=== PATIENT | female | born 1945 | race Caucasian/White ===

== ENCOUNTER → 2016-05-08 | Outpatient (CLI) | payer MEDICARE, BC ==
--- NOTE | 2016-05-09 09:49 | MM ---
Reason for exam: clinical finding. Last mammogram was performed 1 year ago. History: Patient is postmenopausal. Benign core biopsy of the right breast, January 09, 1998. Benign excisional biopsy of the left breast, 1989. Core biopsy of the left breast. Core biopsy of the right breast. Took estrogen for 6 years. Indicated problem(s): non-bloody discharge in the right breast. Physical Findings: Nurse did not find any significant physical abnormalities on exam. MG 3D Diag Mammo W/Cad JES Bilateral CC and MLO view(s) were taken. Prior study comparison: May 08, 2015, bilateral MG 3d screening mammo w/cad. April 26, 2014, bilateral MG screening mammo w CAD. April 26, 2013, [facility] DIGITAL LEFT BREAST MAMMOGRAM w/CAD. The breast tissue is heterogeneously dense. This may lower the sensitivity of mammography. There is chronic nodularity in the left breast. A superior right breast mass is stable and benign. No significant new findings when compared with previous films. These results were verbally communicated with the patient and result sheet given to the patient on 05/08/16. ASSESSMENT: Incomplete: need additional imaging evaluation, BI-RAD 0 RECOMMENDATION: Ultrasound of the right breast. (for further assessment of dark brown nipple discharge)
--- NOTE | 2016-05-09 09:55 | USB ---
Reason for exam: additional evaluation requested from abnormal screening. History: Patient is postmenopausal. Benign core biopsy of the right breast, January 09, 1998. Benign excisional biopsy of the left breast, 1989. Core biopsy of the left breast. Core biopsy of the right breast. Took estrogen for 6 years. US Breast RT Right breast ultrasound including all four quadrants, the retroareolar region and axilla demonstrates duct ectasia at the nipple, a 0.39 x 0.16 x 0.36cm lesion able node at the axilla tail, a 0.38 x 0.23 x 0.27cm lesion too small to characterize at 3 o'clock, a 0.37 x 0.34 x 0.40cm lesion too small to characterize at 6 o'clock for which a 6 month follow up is recommended, a 1.1 x 0.44 x 1.18cm solid, ovoid lesion at 9 o'clock for which a biopsy is recommended and a 0.37 x 0.43 x 0.38cm irregular, hypoechoic area at 11 o'clock for which a biopsy is recommended. These results were verbally communicated with the patient and result sheet given to the patient on 05/08/16. ASSESSMENT: Suspicious, BI-RAD 4 RECOMMENDATION: Ultrasound core biopsy of the right breast. (9 o'clock and 11 o'clock, 2 sites) [address] Dr. Washington with mammographic findings and has scheduled an appointment for the patient for 05/16/16 at 10:[address] Zapata. PRELIMINARY REPORT CALLED AND FAXED TO DR. ZAPATA ON 05/09/16 AT 300/TP.
== END | disposition home or self-care (01) ==
LOC: RADMAMWWP 13:34
PROVIDERS: ATTEND Family Medicine
DX: N64.52 Nipple discharge (principal); R92.8 Other abnormal and inconclusive findings on diagnostic imaging of breast
CPT/HCPCS: 76641; G0204; G0279

== ENCOUNTER → 2016-07-31 | Outpatient (CLI) | payer MEDICARE, BC ==
--- NOTE | 2016-07-31 14:26 | XR ---
EXAMINATION TYPE: XR Hip Complete LT DATE OF EXAM: 07/31/2016 2:22 PM COMPARISON: NONE HISTORY: Pain TECHNIQUE: 2 views submitted FINDINGS: There is no evidence of erosive change or acute fracture. Mild concentric narrowing of the joint space. Sclerosis involving the iliac bone likely related to [place]. Surgical clip in the pelvis. Question degree of the left sacroiliitis. IMPRESSION: 1. Arthropathy with no evidence of erosive change. Correlate with MRI as warranted. 2. Correlate for left sacroiliitis.
== END ==
LOC: RADXRMAIN 14:04
PROVIDERS: ATTEND Family Medicine
DX: M16.12 Unilateral primary osteoarthritis, left hip (principal)
CPT/HCPCS: 73502

== ENCOUNTER → 2016-08-28 | Outpatient (CLI) | payer MEDICARE, BC ==
[2016-08-28 09:52] LABS: ALT 34 U/L (9-52); AST 24 U/L (14-36); Alkaline Phosphatase 104 U/L (38-126); Anion Gap 12 mmol/L; Blood Urea Nitrogen 15 mg/dL (7-17); Calcium 9.1 mg/dL (8.4-10.2); Carbon Dioxide 23 mmol/L (22-30); Chloride 110 mmol/L (98-107); Cholesterol 146 mg/dL (<200); Glucose 105 mg/dL (74-99); HDL Cholesterol 31 mg/dL (40-60); Non-African American GFR(MDRD) >60 (>60 ml/min/1.73 sqM); Potassium 3.8 mmol/L (3.5-5.1); Sodium 145 mmol/L (137-145); Total Bilirubin 0.7 mg/dL (0.2-1.3); Total Protein 7.4 g/dL (6.3-8.2); Triglycerides 204 mg/dL (<150)
[2016-08-28 16:47] LABS: Urine Creatinine 101.5 mg/dL
== END | disposition home or self-care (01) ==
LOC: LABWHC1 09:09
PROVIDERS: ATTEND Internal Medicine Endocrinology, Diabetes & Metabolism
DX: E11.65 Type 2 diabetes mellitus with hyperglycemia (principal)
CPT/HCPCS: 36415; 80053; 80061; 82043; 82570

== ENCOUNTER → 2016-09-03 | Outpatient (CLI) | payer MEDICARE, BC | END | disposition home or self-care (01) | LOC: CPPFTMAIN 10:17 | PROVIDERS: ATTEND Family Medicine | DX: R06.02 Shortness of breath (principal) | CPT/HCPCS: 94060; 94726; 94729 ==

== ENCOUNTER 2016-10-23 15:36 | Emergency (ER) | payer MEDICARE, BC ==
[2016-10-23 16:03] VITALS: RESP 18
[2016-10-23] MEDS ORDERED: ONDANSETRON 4 MG/2 ML VIAL IVP STA (17:09)
[2016-10-23] MEDS ORDERED: diphenhydrAMINE 50 MG/ML 1 ML VIAL IVP STA (17:09)
[2016-10-23] MEDS ORDERED: SODIUM CHLORIDE 0.9% 1,000 ML IV STA (17:09)
[2016-10-23] MEDS ORDERED: RX INFO: IV CONTRAST WAS GIVEN 1 EACH MISC MISCELLANE PRN (17:09)
[2016-10-23] MEDS ORDERED: FAMOTIDINE 20 MG/2 ML VIAL IV STA (17:09)
--- NOTE | 2016-10-23 17:26 | ED ---
General Adult HPI - General Chief complaint: Recheck/Abnormal Lab/Rx Stated complaint: rule out blood clot in lung-sent by Time Seen by Provider: 10/23/16 16:55 Source: patient, RN notes reviewed Mode of arrival: ambulatory Limitations: no limitations - History of Present Illness Initial comments: Patient 71-year-old female who presents emergency room today with a chief complaint of needing a CT to rule out possible PE. She states she saw her art department head and was advised coming here to the emergency room as she has an iodine ALLERGY. She states that she had an IV done approximately 20-25 years ago and became nauseous and does not feel well. Patient states that she has had symptoms of shortness of breath off-and-on over the last 6 months. She states currently experiencing some discomfort when she chest the breath. Patient does admit that she was recently diagnosed with asthma. He states breathing treatment doesn't seem to help her symptoms. She denies any symptoms at this time. Patient denies any recent fever, chills, chest pain, back pain, abdominal pain, nausea or vomiting, numbness or tingling, dysuria or hematuria, constipation or diarrhea, headaches or visual changes, or any other complaints. - Related Data Home Medications Medication Instructions Recorded Confirmed Escitalopram [Lexapro] 20 mg PO DAILY 09/18/15 10/23/16 Ezetimibe/Simvastatin [Vytorin 1 tab PO DAILY 09/18/15 10/23/16 10-20 mg Tablet] Levothyroxine Sodium [Synthroid] 112 mcg PO DAILY 09/18/15 10/23/16 Moexipril [Univasc] 3.75 mg PO DAILY 09/18/15 10/23/16 metFORMIN HCL 1,000 mg PO BID 09/18/15 10/23/16 Insulin Detemir [Levemir] 48 unit SQ BID 10/23/16 10/23/16 Omeprazole 40 mg PO DAILY 10/23/16 10/23/16 Topiramate [Topamax] 75 mg PO BID 10/23/16 10/23/16 Allergies Allergy/AdvReac Type Severity Reaction Status Date / Time codeine Allergy Anaphylaxis Verified 10/23/16 16:45 Iodinated Contrast- Oral and Allergy Nausea & Verified 10/23/16 16:45 IV Dye Vomiting meperidine HCl [From Demerol] Allergy Anaphylaxis Verified 10/23/16 16:45 Review of Systems ROS Statement: Those systems with pertinent positive or pertinent negative responses have been documented in the HPI. ROS Other: All systems not noted in ROS Statement are negative. 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 pt, peptic ulcers History of Any Multi-Drug Resistant Organisms: None Reported Past Surgical History: Cholecystectomy, Hysterectomy Additional Past Surgical History / Comment(s): 6 eye surgeries including cataracts Past Anesthesia/Blood Transfusion Reactions: No Reported Reaction Past Psychological History: Depression Smoking Status: Never smoker Past Alcohol Use History: None Reported Past Drug Use History: None Reported - Past Family History Mother Additional Family Medical History / Comment(s): brain aneurysm - at age 45 Father Family Medical History: Coronary Artery Disease (CAD) Additional Family Medical History / Comment(s): of "old age" General Exam - General Exam Comments Initial Comments: General: The patient is awake and alert, in no distress, and does not appear acutely ill. Eye: Pupils are equal, round and reactive to light, extra-ocular movements are intact. No nystagmus. There is normal conjunctiva bilaterally. No signs of icterus. Ears, nose, mouth and throat: There are moist mucous membranes and no oral lesions. Neck: The neck is supple, there is no tenderness or JVD. Cardiovascular: There is a regular rate and rhythm. No murmur, rub or gallop is appreciated. Respiratory: Lungs are clear to auscultation, respirations are non-labored, breath sounds are equal. No wheezes, stridor, rales, or rhonchi. Musculoskeletal: Normal ROM, no tenderness. Strength 5/5. Sensation intact. Pulses equal bilaterally 2+. Neurological: A&O x 3. CN II-XII intact, There are no obvious motor or sensory deficits. Coordination appears grossly intact. Speech is normal. Skin: Skin is warm and dry and no rashes or lesions are noted. Psychiatric: Cooperative, appropriate mood & affect, normal judgment. Limitations: no limitations Course Vital Signs 10/23/16 15:58 Temperature 98.6 F Pulse Rate 74 Respiratory 18 Rate Blood Pressure 128/71 O2 Sat by Pulse 100 Oximetry EKG Findings - EKG Comments: EKG Findings:: EKG performed at 1728: Sinus rhythm at 72 bpm. Occasional PAC. IL interval 196. QRS 88. QT/QTc 432/473. No acute ST changes. Medical Decision Making - Medical Decision Making Patient's CT reviewed and does show no evidence of a PE. Mild arthrosclerotic vascular disease. Minimal fibrotic changes at the posterior lung bases. Patient's labs been reviewed unremarkable. Case discussed in detail with attending physician Dr. Sauceda. Patient reexamined at this time shows no signs of distress resting comfortably. At this time patient will be discharged home advised follow-up with family doctor and her art department head. - Lab Data Result diagrams: 10/23/16 17:20 10/23/16 17:20 Lab Results 10/23/16 10/23/16 10/23/16 Range/Units 17:20 17:20 17:20 WBC 9.9 (3.8-10.6) k/uL RBC 4.93 (3.80-5.40) m/uL Hgb 13.8 (11.4-16.0) gm/dL Hct 40.5 (34.0-46.0) % MCV 82.2 (80.0-100.0) fL MCH 28.0 (25.0-35.0) pg MCHC 34.1 (31.0-37.0) g/dL RDW 13.4 (11.5-15.5) % Plt Count 268 (150-450) k/uL Neutrophils % 63 % Lymphocytes % 27 % Monocytes % 4 % Eosinophils % 3 % Basophils % 0 % Neutrophils # 6.3 (1.3-7.7) k/uL Lymphocytes # 2.7 (1.0-4.8) k/uL Monocytes # 0.4 (0-1.0) k/uL Eosinophils # 0.3 (0-0.7) k/uL Basophils # 0.0 (0-0.2) k/uL Sodium 143 (137-145) mmol/L Potassium 3.7 (3.5-5.1) mmol/L Chloride 109 H (98-107) mmol/L Carbon Dioxide 24 (22-30) mmol/L Anion Gap 10 mmol/L BUN 15 (7-17) mg/dL Creatinine 0.85 (0.52-1.04) mg/dL Est GFR (MDRD) Af Amer >60 (>60 ml/min/1.73 sqM) Est GFR (MDRD) Non-Af >60 (>60 ml/min/1.73 sqM) Glucose 100 H (74-99) mg/dL POC Glucose (mg/dL) (75-99) mg/dL POC Glu Back[employer] ID Calcium 9.5 (8.4-10.2) mg/dL Total Bilirubin 0.4 (0.2-1.3) mg/dL AST 23 (14-36) U/L ALT 34 (9-52) U/L Alkaline Phosphatase 99 (38-126) U/L Total Creatine Kinase 26 L (30-135) U/L CK-MB (CK-2) 0.4 (0.0-2.4) ng/mL CK-MB (CK-2) Rel Index 1.5 Troponin I <0.012 (0.000-0.034) ng/mL Total Protein 8.0 (6.3-8.2) g/dL Albumin 4.4 (3.5-5.0) g/dL 10/23/16 Range/Units 17:36 WBC (3.8-10.6) k/uL RBC (3.80-5.40) m/uL Hgb (11.4-16.0) gm/dL Hct (34.0-46.0) % MCV (80.0-100.0) fL MCH (25.0-35.0) pg MCHC (31.0-37.0) g/dL RDW (11.5-15.5) % Plt Count (150-450) k/uL Neutrophils % % Lymphocytes % % Monocytes % % Eosinophils % % Basophils % % Neutrophils # (1.3-7.7) k/uL Lymphocytes # (1.0-4.8) k/uL Monocytes # (0-1.0) k/uL Eosinophils # (0-0.7) k/uL Basophils # (0-0.2) k/uL Sodium (137-145) mmol/L Potassium (3.5-5.1) mmol/L Chloride (98-107) mmol/L Carbon Dioxide (22-30) mmol/L Anion Gap mmol/L BUN (7-17) mg/dL Creatinine (0.52-1.04) mg/dL Est GFR (MDRD) Af Amer (>60 ml/min/1.73 sqM) Est GFR (MDRD) Non-Af (>60 ml/min/1.73 sqM) Glucose (74-99) mg/dL POC Glucose (mg/dL) 97 (75-99) mg/dL POC Glu Back[employer] Associate ID [place] Calcium (8.4-10.2) mg/dL Total Bilirubin (0.2-1.3) mg/dL AST (14-36) U/L ALT (9-52) U/L Alkaline Phosphatase (38-126) U/L Total Creatine Kinase (30-135) U/L CK-MB (CK-2) (0.0-2.4) ng/mL CK-MB (CK-2) Rel Index Troponin I (0.000-0.034) ng/mL Total Protein (6.3-8.2) g/dL Albumin (3.5-5.0) g/dL Disposition Clinical Impression: Dyspnea, unspecified Disposition: HOME SELF-CARE Condition: Good Instructions: Dyspnea (ED) Additional Instructions: Please follow-up the family doctor/art department head over the next 1-2 days. Please return here to emergency room if any symptoms increase or worsen or for any other concerns as discussed. Referrals: Wilbert Washington MD [Primary Care Provider] - 1-2 days Bakari Torrez DO [Doctor of Osteopathic Medicine] - 1-2 days Time of Disposition: 18:26
[2016-10-23 17:38] LABS: Glucose,Whole Blood 97 mg/dL (75-99)
[2016-10-23 17:40] LABS: Basophils % (A) 0 %; CH 27.8; Eosinophils # (A) 0.3 k/uL (0-0.7); Eosinophils % (A) 3 %; HCT 40.5 % (34.0-46.0); HGB 13.8 gm/dL (11.4-16.0); Luc # (Auto) 0.23; Luc % (Auto) 2; Lymphocytes # (A) 2.7 k/uL (1.0-4.8); Lymphocytes % (A) 27 %; MCHC 34.1 g/dL (31.0-37.0); MCV 82.2 fL (80.0-100.0); Mean Platelet Volume 6.3; Monocytes # (A) 0.4 k/uL (0-1.0); Monocytes % (A) 4 %; Neutrophils # (A) 6.3 k/uL (1.3-7.7); Neutrophils % (A) 63 %; RBC 4.93 m/uL (3.80-5.40); RDW 13.4 % (11.5-15.5); WBC 9.9 k/uL (3.8-10.6); WBC (Perox) 9.83
[2016-10-23 17:44] LABS: ALT 34 U/L (9-52); AST 23 U/L (14-36); Alkaline Phosphatase 99 U/L (38-126); Anion Gap 10 mmol/L; Blood Urea Nitrogen 15 mg/dL (7-17); Calcium 9.5 mg/dL (8.4-10.2); Carbon Dioxide 24 mmol/L (22-30); Chloride 109 mmol/L (98-107); Glucose 100 mg/dL (74-99); Non-African American GFR(MDRD) >60 (>60 ml/min/1.73 sqM); Potassium 3.7 mmol/L (3.5-5.1); Sodium 143 mmol/L (137-145); Total Bilirubin 0.4 mg/dL (0.2-1.3)
[2016-10-23 17:50] LABS: Creatine Kinase 26 U/L (30-135)
[2016-10-23 18:03] LABS: Creatine Kinase MB 0.4 ng/mL (0.0-2.4); Troponin I <0.012 ng/mL (0.000-0.034)
--- NOTE | 2016-10-23 18:18 | CT ---
EXAMINATION TYPE: CT angio chest DATE OF EXAM: 10/23/2016 6:11 PM COMPARISON: NONE HISTORY: R/O PE/ CHEST PAIN AND SOB X6 MONTHS. CT DLP: 227.1 mGycm Automated exposure control for dose reduction was used. CONTRAST: CTA scan of the thorax is performed with IV Contrast, patient injected with 60 mL of Omnipaque 350, p ulmonary embolism protocol. There are 3-D post processed images.. FINDINGS: The lungs are clear of consolidation. There is no pleural effusion. There is no evidence of a pulmona ry mass. There is minimal reticular density at the posterior lung bases. There is mild atheromatous change in the thoracic aorta. There is no sign of aneurysm or dissection. I see no filling defects in the pulmonary arteries. There are no hilar masses. There is no mediastinal adenopathy. There is no pericardial effusion. Hear t size is normal. Thoracic spine is intact. IMPRESSION: NO EVIDENCE OF PULMONARY EMBOLISM. MILD ATHEROSCLEROTIC VASCULAR DISEASE. MINIMAL FIBROTIC CHANGES AT THE POSTERIOR LUNG BASES.
[2016-10-23 18:42] VITALS: BP 108/56; PULSE 75; TEMP 98.2
== END 2016-10-23 18:42 | disposition home or self-care (01) ==
LOC: EC 15:36
DX: R06.00 Dyspnea, unspecified (principal); R07.89 Other chest pain; E11.9 Type 2 diabetes mellitus without complications; I10 Essential (primary) hypertension; E07.9 Disorder of thyroid, unspecified; E78.5 Hyperlipidemia, unspecified; I70.90 Unspecified atherosclerosis; K27.9 Peptic ulcer, site unspecified, unspecified as acute or chronic, without hemorrhage or perforation; F32.9 Major depressive disorder, single episode, unspecified; Z79.4 Long term (current) use of insulin; Z79.899 Other long term (current) drug therapy; Z88.5 Allergy status to narcotic agent; Z91.041 Radiographic dye allergy status
CPT/HCPCS: 96375 ×3; 96361 ×2; 96374 ×2; 99285 ×2; 36415; 93005; 80053; 82550; 82553; 84484; 85025; 71275; J1200; Q9967; J2405

== ENCOUNTER → 2016-10-24 | Outpatient (CLI) | payer MEDICARE, BC ==
--- NOTE | 2016-10-24 14:00 | US ---
EXAMINATION TYPE: US kidneys/renal and bladder DATE OF EXAM: 10/24/2016 COMPARISON: CT 2016 CLINICAL HISTORY: 71-year-old female Renal Mass N28.89. Pt states recent CT at outside facility showe d possible renal mass on left side TECHNIQUE: Multiple sonographic images of the kidneys and bladder were obtained. FINDINGS: Right Kidney: 10.8 x 4.8 x 4.9 cm without hydronephrosis. There is a 1.2 cm simple cyst in the upper pole. Left Kidney: 10.3 x 5.0 x 4.8 cm without hydronephrosis. Multiple cortical cysts are present within t he upper to midpole, largest measuring 1.2 cm. No definite suspicious renal mass. Ultrasound has low sensitivity for the detection of small solid le sions. Bladder shows no gross abnormal body. Both ureteral jets are visualized. IMPRESSION: 1. No hydronephrosis. 2. Bilateral renal cortical cysts measuring up to 1.2 cm have a benign appearance. 3. No suspicious renal mass identified on this exam. The patient's outside exam where a possible left renal mass was seen is not available for correlation. The need for additional follow-up should be ma de on a clinical basis.
== END | disposition home or self-care (01) ==
LOC: RADUSWWP 13:28
PROVIDERS: ATTEND Family Medicine
DX: N28.1 Cyst of kidney, acquired (principal)
CPT/HCPCS: 76770

== ENCOUNTER → 2017-03-18 | Outpatient (CLI) | payer MEDICARE, BC ==
[2017-03-18 11:21] LABS: ALT 37 U/L (9-52); AST 24 U/L (14-36); Albumin 4.4 g/dL (3.5-5.0); Alkaline Phosphatase 110 U/L (38-126); Anion Gap 11 mmol/L; Blood Urea Nitrogen 17 mg/dL (7-17); Calcium 9.9 mg/dL (8.4-10.2); Carbon Dioxide 25 mmol/L (22-30); Chloride 105 mmol/L (98-107); Cholesterol 174 mg/dL (<200); Glucose 155 mg/dL (74-99); HDL Cholesterol 34 mg/dL (40-60); LDL Cholesterol,Calculated 82 mg/dL (0-99); Potassium 4.3 mmol/L (3.5-5.1); Sodium 141 mmol/L (137-145); Total Bilirubin 0.5 mg/dL (0.2-1.3); Total Protein 7.6 g/dL (6.3-8.2); Triglycerides 289 mg/dL (<150)
[2017-03-18 11:33] LABS: T4, Free (Free Thyroxine) 1.07 ng/dL (0.78-2.19)
[2017-03-18 16:56] LABS: Hemoglobin A1C 7.6 % (4.0-6.0)
== END | disposition home or self-care (01) ==
LOC: LABWHC1 10:11
PROVIDERS: ATTEND Internal Medicine Endocrinology, Diabetes & Metabolism
DX: E03.9 Hypothyroidism, unspecified (principal); E11.65 Type 2 diabetes mellitus with hyperglycemia
CPT/HCPCS: 36415; 80053; 80061; 82043; 82570; 83036; 84439; 84443

== ENCOUNTER → 2017-08-11 | Outpatient (CLI) | payer MEDICARE, BC ==
--- NOTE | 2017-08-11 16:13 | XR ---
Left shoulder HISTORY: Left shoulder pain 3 views of the left shoulder Bone mineralization is reduced. Alignment and joint spaces are maintained. Left lung apex as visualiz ed is normal. IMPRESSION: No acute abnormality. Shoulder MRI may be of benefit.
== END | disposition home or self-care (01) ==
LOC: RADXRYALE 13:16
PROVIDERS: ATTEND Nurse Practitioner Family
DX: M25.512 Pain in left shoulder (principal)

== ENCOUNTER → 2017-09-08 | Outpatient (CLI) | payer MEDICARE, BC ==
--- NOTE | 2017-09-08 11:07 | MM ---
Reason for exam: additional evaluation requested from prior study. Last mammogram was performed 1 year and 4 months ago. History: Patient is postmenopausal. Benign core biopsy of the right breast, January 09, 1998. Benign excisional biopsy of the left breast, 1989. Core biopsy of the left breast. Core biopsy of the right breast. Took estrogen for 6 years. Physical Findings: Nurse did not find any significant physical abnormalities on exam. MG 3D Diag Mammo W/Cad JES Bilateral CC and MLO view(s) were taken. Prior study comparison: May 08, 2016, bilateral MG 3d diag mammo w/cad JES. May 08, 2015, bilateral MG 3d screening mammo w/cad. The breast tissue is heterogeneously dense. This may lower the sensitivity of mammography. There is chronic nodularity bilaterally. No significant new findings when compared with previous films. These results were verbally communicated with the patient and result sheet given to the patient on 09/08/17. ASSESSMENT: Negative, BI-RAD 1 RECOMMENDATION: Routine screening mammogram of both breasts in 1 year.
== END | disposition home or self-care (01) ==
LOC: RADMAMWWP 10:17
PROVIDERS: ATTEND Family Medicine
DX: R92.8 Other abnormal and inconclusive findings on diagnostic imaging of breast (principal)
CPT/HCPCS: 77066; G0279; 77062

== ENCOUNTER → 2017-10-15 | Outpatient (CLI) | payer MEDICARE, BC ==
[2017-10-15 10:23] LABS: Calcium 9.2 mg/dL (8.4-10.2); Potassium 4.2 mmol/L (3.5-5.1); Total Bilirubin 0.3 mg/dL (0.2-1.3); Total Protein 6.9 g/dL (6.3-8.2)
[2017-10-15 18:04] LABS: Hemoglobin A1C 7.2 % (4.0-6.0)
== END | disposition home or self-care (01) ==
LOC: LABWHC1 08:31
PROVIDERS: ATTEND Internal Medicine Endocrinology, Diabetes & Metabolism
DX: E11.65 Type 2 diabetes mellitus with hyperglycemia (principal)
CPT/HCPCS: 36415; 80053; 80061; 82043; 82570; 83036

== ENCOUNTER → 2018-02-20 | Outpatient (CLI) | payer MEDICARE, BC ==
[2018-02-20 11:39] LABS: Calcium 9.5 mg/dL (8.4-10.2); Potassium 4.5 mmol/L (3.5-5.1); Total Bilirubin 0.4 mg/dL (0.2-1.3); Total Protein 7.2 g/dL (6.3-8.2)
[2018-02-20 19:48] LABS: Hemoglobin A1C 6.7 % (4.0-6.0)
== END | disposition home or self-care (01) ==
LOC: LAB 10:30
PROVIDERS: ATTEND Internal Medicine Endocrinology, Diabetes & Metabolism
DX: E11.65 Type 2 diabetes mellitus with hyperglycemia (principal); E03.9 Hypothyroidism, unspecified
CPT/HCPCS: 80053; 80061; 82043; 82570; 82607; 83036; 84443

== ENCOUNTER → 2018-07-22 | Outpatient (CLI) | payer MEDICARE, BC ==
[2018-07-22 19:10] LABS: Albumin 4.2 g/dL (3.80-4.90); Albumin/Globulin Ratio 1.56 (1.60-3.17); Anion Gap 8.1 mmol/L (4.00-12.00); Calcium 9.2 mg/dL (8.7-10.3); Carbon Dioxide 23.9 mmol/L (21.6-31.8); Globulin 2.7 g/dL (1.6-3.3); LDL Cholesterol,Calculated 72.2 mg/dL (0.0-131.0); Potassium 4.1 mmol/L (3.5-5.5); Total Bilirubin 0.4 mg/dL (0.2-1.2); Total Protein 6.9 g/dL (6.2-8.2); VLDL Calculation 36.8 mg/dL (5.00-40.00)
[2018-07-22 21:36] LABS: Hemoglobin A1C 7.1 % (4.0-6.0)
== END | disposition home or self-care (01) ==
LOC: LABWHC1 11:44
PROVIDERS: ATTEND Internal Medicine Endocrinology, Diabetes & Metabolism
DX: E03.8 Other specified hypothyroidism (principal); E11.65 Type 2 diabetes mellitus with hyperglycemia
CPT/HCPCS: 36415; 80053; 80061; 82043; 82570; 83036; 84443

== ENCOUNTER → 2018-10-05 | Outpatient (CLI) | payer MEDICARE, BC ==
--- NOTE | 2018-10-05 14:08 | BD ---
EXAMINATION TYPE: Axial Bone Density DATE OF EXAM: 10/05/2018 COMPARISON: 2014 CLINICAL HISTORY: Postmenopausal female, N 95.1 Height: 64.25 Weight: 135 FRAX RISK QUESTIONS: Alcohol (3 or more units per day): no Family History (Parent hip fracture): patient does not know about father, mother no Glucocorticoids (More than 3mos): no (Ex: prednisone, prednisolone, methylprednisolone, dexamethasone, and hydrocortisone). History of Fracture in Adulthood: no Secondary Osteoporosis: 1. Type 1 Diabetes: no 2. Hyperthyroidism: unsure 3. Menopause before 45: no 4. Malnutrition: no 5. Chronic liver disease: no Rheumatoid Arthritis: no Current Tobacco Use: no RISK FACTORS HISTORY OF: Family History of Osteoporosis: yes Active: yes Diet low in dairy products/other sources of calcium: no Postmenopausal woman: yes Take estrogen and/or progesterone medications: not now How long: estrogen for about 6 years Lost more than 2 inches in height since high school: no Frequent falls: no Poor Health: no Hyperparathyroidism: no Adrenal Insufficiency: no MEDICATIONS: Prednisone or other steroids: no Thyroid Medications: yes Which medication: Synthroid How Long: about 10 years or more Osteoporosis Medications: no Additional Medications: insulin twice a day Additional History: Parkinson's, diabetic II EXAM MEASUREMENTS: Bone mineral densitometry was performed using the [employer] System. Bone mineral density as measured about the Lumbar spine is: ----- L1-L4(G/cm2): 0.944 T Score Values are as follows: ----- L2: -2.3 ----- L3: -2.2 ----- L4: -1.4 ----- L1-L4: -2.0 Bone mineral density has: Increased 5.7% since study of: 06/22/2014 Bone mineral density about the R hip (g/cm2): 0.710 Bone mineral density about the L hip (g/cm2): 0.758 T Score values are as follows: -----R Neck: -2.4 -----L Neck: -2.0 -----R Total: -2.2 -----L Total: -1.9 Bone mineral density has: Decreased -7.8% since study of: 06/22/3014 IMPRESSION: Osteopenia (T Score between -2.5 and -1). There is slightly increased risk of fracture and the patient may be considered for treatment. Re-Screen 2-5 years. NOTE: T-SCORE=SD OF THE YOUNG ADULT MEAN.
--- NOTE | 2018-10-07 08:18 | MM ---
Reason for exam: screening (asymptomatic). Last mammogram was performed 1 year and 1 month ago. History: Patient is postmenopausal. Benign core biopsy of the right breast, January 09, 1998. Benign excisional biopsy of the left breast, 1989. Core biopsy of the left breast. Core biopsy of the right breast. Took estrogen for 6 years. MG 3D Screening Mammo W/Cad Bilateral CC and MLO view(s) were taken. Prior study comparison: September 08, 2017, bilateral MG 3d diag mammo w/cad JES. May 08, 2016, bilateral MG 3d diag mammo w/cad JES. The breast tissue is heterogeneously dense. This may lower the sensitivity of mammography. No significant new finding when compared with prior studies. ASSESSMENT: Benign, BI-RAD 2 RECOMMENDATION: Routine screening mammogram of both breasts in 1 year.
== END | disposition home or self-care (01) ==
LOC: RADMAMWWP 09:35
PROVIDERS: ATTEND Family Medicine
DX: Z12.31 Encounter for screening mammogram for malignant neoplasm of breast (principal); M85.80 Other specified disorders of bone density and structure, unspecified site; N95.1 Menopausal and female climacteric states
CPT/HCPCS: 77063; 77067; 77080

== ENCOUNTER → 2018-11-18 | Outpatient (CLI) | payer MEDICARE, BC ==
[2018-11-18 18:33] LABS: Hemoglobin A1C 6.8 % (4.0-6.0)
== END | disposition home or self-care (01) ==
LOC: LABWHC1 10:50
PROVIDERS: ATTEND Internal Medicine Endocrinology, Diabetes & Metabolism
DX: E03.8 Other specified hypothyroidism (principal); E11.65 Type 2 diabetes mellitus with hyperglycemia
CPT/HCPCS: 36415; 83036; 84443

== ENCOUNTER 2018-12-18 11:22 | Observation (INO) | payer MEDICARE, BC ==
[2018-12-18] MEDS ORDERED: ASPIRIN 81 MG PO STA (11:36)
[2018-12-18] MEDS ORDERED: NITROGLYCERIN SL TABS 0.4 MG TAB SUBLINGUAL STA ×3 (11:36)
--- NOTE | 2018-12-18 11:50 | ED ---
General Adult HPI - General Chief complaint: Chest Pain Stated complaint: CHEST PAIN Time Seen by Provider: 12/18/18 11:28 Source: patient, RN notes reviewed Mode of arrival: ambulatory Limitations: no limitations - History of Present Illness Initial comments: Patient is a pleasant 73-year-old female presenting to the emergency Department with complaints of chest discomfort. Onset of symptoms was over 2 days ago. Discomfort has been steady. Discomfort feels like pressure discomfort is moderate and rated 6/10. Patient does feel somewhat short of breath. Symptoms do worsen with taking a deep breath. No associated nausea or diaphoresis. Patient has had similar symptoms previously however is unclear why. - Related Data Home Medications Medication Instructions Recorded Confirmed Escitalopram [Lexapro] 20 mg PO DAILY 09/18/15 12/18/18 Ezetimibe/Simvastatin [Vytorin 1 tab PO DAILY 09/18/15 12/18/18 10-20 mg Tablet] metFORMIN HCL 1,000 mg PO BID 09/18/15 12/18/18 Carbidopa-Levodopa 25-100 mg 1 tab PO TID 12/18/18 12/18/18 [Sinemet 25-100] Cholecalciferol [Vitamin D3 (25 1,000 unit PO DAILY 12/18/18 12/18/18 Mcg = 1000 Iu)] Cyanocobalamin (Vitamin B-12) 5,000 mcg PO DAILY 12/18/18 12/18/18 [Vitamin B-12] Insulin Detemir [Levemir Flextouch] 48 units SQ BID 12/18/18 12/18/18 Levothyroxine Sodium [Synthroid] 88 mcg PO DAILY 12/18/18 12/18/18 Topiramate [Topamax] 150 mg PO BID 12/18/18 12/18/18 Vit C/E/Zn/Coppr/Lutein/Zeaxan 1 cap PO BID 12/18/18 12/18/18 [Preservision Areds 2 Softgel] Allergies Allergy/AdvReac Type Severity Reaction Status Date / Time codeine Allergy Anaphylaxis Verified 12/18/18 12:02 Iodinated Contrast Media Allergy Nausea & Verified 12/18/18 12:02 [Iodinated Contrast- Oral Vomiting and IV Dye] meperidine HCl [From Demerol] Allergy Anaphylaxis Verified 12/18/18 12:02 Review of Systems ROS Statement: Those systems with pertinent positive or pertinent negative responses have been documented in the HPI. ROS Other: All systems not noted in ROS Statement are negative. Constitutional: Denies: fever Eyes: Denies: eye pain ENT: Denies: ear pain Respiratory: Reports: as per HPI, dyspnea Cardiovascular: Reports: chest pain Endocrine: Denies: fatigue Gastrointestinal: Denies: abdominal pain Genitourinary: Denies: dysuria Musculoskeletal: Denies: back pain Skin: Denies: rash Neurological: Denies: weakness 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 pt, peptic ulcers History of Any Multi-Drug Resistant Organisms: None Reported Past Surgical History: Cholecystectomy, Hysterectomy Additional Past Surgical History / Comment(s): 6 eye surgeries including cataracts Past Anesthesia/Blood Transfusion Reactions: No Reported Reaction Past Psychological History: Depression Smoking Status: Never smoker Past Alcohol Use History: None Reported Past Drug Use History: None Reported - Past Family History Mother Additional Family Medical History / Comment(s): brain aneurysm - at age 45 Father Family Medical History: Coronary Artery Disease (CAD) Additional Family Medical History / Comment(s): of "old age" General Exam Limitations: no limitations General appearance: alert, in no apparent distress Head exam: Present: normocephalic Eye exam: Present: normal appearance, PERRL ENT exam: Present: normal oropharynx Neck exam: Present: normal inspection Respiratory exam: Present: normal lung sounds bilaterally. Absent: chest wall tenderness Cardiovascular Exam: Present: regular rate, normal rhythm Expanded Peripheral pulses: 2+: Radial (R), Radial (L), Posterior Tibialis (R), Posterior Tibialis (L), Dorsalis Pedis (R), Dorsalis Pedis (L) GI/Abdominal exam: Present: soft. Absent: tenderness Extremities exam: Present: normal inspection. Absent: pedal edema, calf tenderness Neurological exam: Present: alert Psychiatric exam: Present: normal affect, normal mood Skin exam: Present: normal color Course Vital Signs 12/18/18 12/18/18 12/18/18 11:25 12:07 12:12 Temperature 97.9 F Pulse Rate 83 80 81 Respiratory 20 20 20 Rate Blood Pressure 143/76 128/79 127/71 O2 Sat by Pulse 99 98 96 Oximetry 12/18/18 12/18/18 12:18 13:00 Temperature Pulse Rate 87 68 Respiratory 20 18 Rate Blood Pressure 106/71 102/64 O2 Sat by Pulse 99 98 Oximetry EKG Findings - EKG Comments: EKG Findings:: Normal sinus rhythm 70. CT 176. QRS 84. QT 370. QTc 399. Le ft axis. Normal QRS. Nonspecific T waves. Medical Decision Making - Medical Decision Making Patient reevaluated and improved with nitroglycerin. Patient and family updated on results and plan. Case was discussed in detail with Dr. Bird, who will admit for Dr. Washington. - Lab Data Result diagrams: 12/18/18 11:42 12/18/18 11:42 Lab Results 12/18/18 12/18/18 12/18/18 Range/Units 11:42 11:42 11:42 WBC 8.9 (3.8-10.6) k/uL RBC 4.66 (3.80-5.40) m/uL Hgb 13.3 (11.4-16.0) gm/dL Hct 39.6 (34.0-46.0) % MCV 85.0 (80.0-100.0) fL MCH 28.5 (25.0-35.0) pg MCHC 33.5 (31.0-37.0) g/dL RDW 12.9 (11.5-15.5) % Plt Count 267 (150-450) k/uL Neutrophils % 65 % Lymphocytes % 27 % Monocytes % 3 % Eosinophils % 3 % Basophils % 0 % Neutrophils # 5.8 (1.3-7.7) k/uL Lymphocytes # 2.4 (1.0-4.8) k/uL Monocytes # 0.3 (0-1.0) k/uL Eosinophils # 0.2 (0-0.7) k/uL Basophils # 0.0 (0-0.2) k/uL PT 9.4 (9.0-12.0) sec INR 0.8 (<1.2) APTT 22.7 (22.0-30.0) sec D-Dimer 0.66 H (<0.60) mg/L FEU Sodium 141 (137-145) mmol/L Potassium 3.6 (3.5-5.1) mmol/L Chloride 106 (98-107) mmol/L Carbon Dioxide 22 (22-30) mmol/L Anion Gap 13 mmol/L BUN 18 H (7-17) mg/dL Creatinine 0.94 (0.52-1.04) mg/dL Est GFR (CKD-EPI)AfAm 71 (>60 ml/min/1.73 sqM) Est GFR (CKD-EPI)NonAf 61 (>60 ml/min/1.73 sqM) Glucose 182 H (74-99) mg/dL Calcium 9.5 (8.4-10.2) mg/dL Magnesium 1.8 (1.6-2.3) mg/dL Total Bilirubin 0.5 (0.2-1.3) mg/dL AST 15 (14-36) U/L ALT 8 L (9-52) U/L Alkaline Phosphatase 95 (38-126) U/L Troponin I (0.000-0.034) ng/mL NT-Pro-B Natriuret Pep pg/mL Total Protein 7.7 (6.3-8.2) g/dL Albumin 4.2 (3.5-5.0) g/dL 12/18/18 12/18/18 Range/Units 11:42 11:42 WBC (3.8-10.6) k/uL RBC (3.80-5.40) m/uL Hgb (11.4-16.0) gm/dL Hct (34.0-46.0) % MCV (80.0-100.0) fL MCH (25.0-35.0) pg MCHC (31.0-37.0) g/dL RDW (11.5-15.5) % Plt Count (150-450) k/uL Neutrophils % % Lymphocytes % % Monocytes % % Eosinophils % % Basophils % % Neutrophils # (1.3-7.7) k/uL Lymphocytes # (1.0-4.8) k/uL Monocytes # (0-1.0) k/uL Eosinophils # (0-0.7) k/uL Basophils # (0-0.2) k/uL PT (9.0-12.0) sec INR (<1.2) APTT (22.0-30.0) sec D-Dimer (<0.60) mg/L FEU Sodium (137-145) mmol/L Potassium (3.5-5.1) mmol/L Chloride (98-107) mmol/L Carbon Dioxide (22-30) mmol/L Anion Gap mmol/L BUN (7-17) mg/dL Creatinine (0.52-1.04) mg/dL Est GFR (CKD-EPI)AfAm (>60 ml/min/1.73 sqM) Est GFR (CKD-EPI)NonAf (>60 ml/min/1.73 sqM) Glucose (74-99) mg/dL Calcium (8.4-10.2) mg/dL Magnesium (1.6-2.3) mg/dL Total Bilirubin (0.2-1.3) mg/dL AST (14-36) U/L ALT (9-52) U/L Alkaline Phosphatase (38-126) U/L Troponin I <0.012 (0.000-0.034) ng/mL NT-Pro-B Natriuret Pep 54 pg/mL Total Protein (6.3-8.2) g/dL Albumin (3.5-5.0) g/dL - Radiology Data Radiology results: image reviewed (Chest x-ray shows no acute process) Disposition Clinical Impression: Chest pain Disposition: ADMITTED IP TO THIS HOSP Is patient prescribed a controlled substance at d/c from ED?: No Referrals: Wilbert Washington MD [Primary Care Provider] - 1-2 days Decision Time: 13:23
[2018-12-18 11:58] LABS: Basophils % (A) 0 %; Eosinophils # (A) 0.2 k/uL (0-0.7); Eosinophils % (A) 3 %; HCT 39.6 % (34.0-46.0); HGB 13.3 gm/dL (11.4-16.0); Lymphocytes # (A) 2.4 k/uL (1.0-4.8); Lymphocytes % (A) 27 %; MCH 28.5 pg (25.0-35.0); MCHC 33.5 g/dL (31.0-37.0); Mean Platelet Volume 5.5; Monocytes # (A) 0.3 k/uL (0-1.0); Monocytes % (A) 3 %; Neutrophils # (A) 5.8 k/uL (1.3-7.7); Neutrophils % (A) 65 %; Platelet Count 267 k/uL (150-450); RBC 4.66 m/uL (3.80-5.40); RDW 12.9 % (11.5-15.5); WBC 8.9 k/uL (3.8-10.6)
[2018-12-18 12:09] LABS: Albumin 4.2 g/dL (3.5-5.0); Calcium 9.5 mg/dL (8.4-10.2); Magnesium 1.8 mg/dL (1.6-2.3); Potassium 3.6 mmol/L (3.5-5.1); Total Bilirubin 0.5 mg/dL (0.2-1.3); Total Protein 7.7 g/dL (6.3-8.2)
[2018-12-18 12:14] LABS: INR 0.8 (<1.2); Partial Thromboplastin Time 22.7 sec (22.0-30.0); Prothrombin Time 9.4 sec (9.0-12.0)
--- NOTE | 2018-12-18 12:16 | XR ---
EXAMINATION TYPE: XR chest 2V DATE OF EXAM: 12/18/2018 COMPARISON: 09/18/2015 HISTORY: Chest pain TECHNIQUE: Frontal and lateral views of the chest are obtained. FINDINGS: There is no focal air space opacity, pleural effusion, or pneumothorax seen. The cardiac silhouette size is within normal limits. The osseous structures are intact. Cholecystectomy clips a re seen. Minimal degenerative changes of the spine. Mild diffuse osseous demineralization. IMPRESSION: No acute cardiopulmonary process.
[2018-12-18 12:21] LABS: D-Dimer 0.66 mg/L FEU (<0.60)
[2018-12-18] MEDS ORDERED: ACETAMINOPHEN TAB 500 MG TAB PO STA (12:23)
[2018-12-18] MEDS ORDERED: NITROGLYCERIN SL TABS 0.4 MG TAB SUBLINGUAL PRN (13:23)
[2018-12-18 14:18] VITALS: BMI 24.0
[2018-12-18 16:37] LABS: Glucose,Whole Blood 96 mg/dL (75-99)
[2018-12-18] MEDS: ENOXAPARIN 40 MG/0.4 ML SYRINGE SQ SCH (18:01)
[2018-12-18] MEDS: CARBIDOPA-LEVODOPA 25-100 MG 1 EACH TAB PO SCH ×2 (18:01→21:07)
[2018-12-18] MEDS: NITROGLYCERIN OINT 1 INCH/GM PACKET TOPICAL SCH (18:06)
--- NOTE | 2018-12-18 19:23 | P.CRDCN ---
History of Present Illness History of present illness: This is Dr. Qiu dictating a consult on this patient The patient was interviewed and examined by me IMPRESSION / ASSESSMENT: Costochondritis with exquisite tenderness in the left-sided costochondral Junctions as well as corresponding rib junctions in the interscapular region Pleuritic in nature clearly tender to touch However she has an exertional component to her chest discomfort and she has a gas-like sensation with any chest, the Nitropatch may have made it a little better Diabetes type 2 Hypertension Dyslipidemia Parkinson's disease Vasotec was discontinued by Dr. Hobson on account of low blood pressure PLAN: 3 serial cardiac enzymes Switch to baby aspirin Increase atorvastatin to 20 mg by mouth daily Workup for abnormal d-dimer per internal medicine If 3 cardiac enzymes are normal and 2 serial ECGs are normal then stress testing should be considered May be done as an outpatient HPI The last few days the patient has been complaining of chest discomfort. She has exquisite chest discomfort in the front of her chest near the costochondral junctions. A deep breath makes it worse. The area is clearly tender to touch. She has tenderness in the interscapular region of the back to However in addition to this she has a gas-like sensation within the chest and nitroglycerin provided some relief. In addition there is an exertional component to the discomfort No dizziness no palpitations Recently started on Parkinson medications ROS: No fever chills or rigors, no cough, phlegm or expectoration, no nausea, vomiting or diarrhea, no hematuria, dysuria, no musculoskeletal complaints, no strokes or seizures, no skin lesions. EXAMINATION: Afebrile 97.3F pulse rate in the 70s Blood pressure 108/60 mmHg Breath sounds are clear no rhonchi no crackles Heart sounds S1 and S2 are normal no murmurs or gallop or rub Breath sounds are clear no rhonchi Abdomen is soft nontender Extent is warm no edema REVIEW OF LABS, ECG & MEDICAL DATA Labs reviewed hemoglobin 13.3, d-dimer borderline abnormal at 0.66 Normal chronic enzymes 2 Medications reviewed and include metformin, Vytorin Twelve-lead ECG shows sinus rhythm normal TX narrow QRS nonspecific ST T abn ormalities in the precordial leads Past Medical History Past Medical History: Diabetes Mellitus, Eye Disorder, Hyperlipidemia, Musculoskeletal Disorder, Neurologic Disorder, Osteoarthritis (OA), Thyroid Disorder, Vascular Disorder Additional Past Medical History / Comment(s): IDDM type II, neuropathy L hand/L foot toes, parkinson's disease, small brain aneurysm, peptic ulcers, beginning of macular degeneration bilaterally, UTI, hypothyroid, frequent headaches, back pain/arthritis in back, IBS. History of Any Multi-Drug Resistant Organisms: None Reported Past Surgical History: Cholecystectomy, Hysterectomy Additional Past Surgical History / Comment(s): D&C, multiple surgeries for stabismus bilaterally, bilateral cataract removals/lens implants, colonoscopy. Past Anesthesia/Blood Transfusion Reactions: No Reported Reaction Smoking Status: Former smoker - Past Family History Mother Family Medical History: Vascular Disorder Additional Family Medical History / Comment(s): brain aneurysm - at age 45 Father History Unknown: Yes Family Medical History: Coronary Artery Disease (CAD) Additional Family Medical History / Comment(s): Pt was not raised by biological father. Medications and Allergies Home Medications Medication Instructions Recorded Confirmed Type Escitalopram [Lexapro] 20 mg PO DAILY 09/18/15 12/18/18 History Ezetimibe/Simvastatin [Vytorin 1 tab PO DAILY 09/18/15 12/18/18 History 10-20 mg Tablet] metFORMIN HCL 1,000 mg PO BID 09/18/15 12/18/18 History Carbidopa-Levodopa 25-100 mg 1 tab PO TID 12/18/18 12/18/18 History [Sinemet 25-100] Cholecalciferol [Vitamin D3 (25 1,000 unit PO DAILY 12/18/18 12/18/18 History Mcg = 1000 Iu)] Cyanocobalamin (Vitamin B-12) 5,000 mcg PO DAILY 12/18/18 12/18/18 History [Vitamin B-12] Insulin Detemir [Levemir Flextouch] 48 units SQ BID 12/18/18 12/18/18 History Levothyroxine Sodium [Synthroid] 88 mcg PO DAILY 12/18/18 12/18/18 History Topiramate [Topamax] 150 mg PO BID 12/18/18 12/18/18 History Vit C/E/Zn/Coppr/Lutein/Zeaxan 1 cap PO BID 12/18/18 12/18/18 History [Preservision Areds 2 Softgel] Allergies Allergy/AdvReac Type Severity Reaction Status Date / Time codeine Allergy Anaphylaxis Verified 12/18/18 12:02 Iodinated Contrast Media Allergy Nausea & Verified 12/18/18 12:02 [Iodinated Contrast- Oral Vomiting and IV Dye] meperidine HCl [From Demerol] Allergy Anaphylaxis Verified 12/18/18 12:02 Physical Exam Vitals: Vital Signs Temp Pulse Pulse Resp BP BP BP 12/18/18 15:58 77 18 12/18/18 14:56 77 18 12/18/18 14:40 97.3 F L 77 18 115/64 115/64 12/18/18 14:20 98.2 F 78 20 108/60 12/18/18 13:00 68 18 102/64 12/18/18 12:18 87 20 106/71 12/18/18 12:12 81 20 127/71 12/18/18 12:07 80 20 128/79 12/18/18 11:25 97.9 F 83 20 143/76 Pulse Ox 12/18/18 15:58 12/18/18 14:56 12/18/18 14:40 96 12/18/18 14:20 99 12/18/18 13:00 98 12/18/18 12:18 99 12/18/18 12:12 96 12/18/18 12:07 98 12/18/18 11:25 99 Intake and Output 12/18/18 12/18/18 12/18/18 06:59 14:59 22:59 Intake Total 240 Balance 240 Intake: Oral 240 Other: Voiding Method Toilet Toilet Weight 63.503 kg Results 12/18/18 11:42 12/18/18 11:42 Cardiac Enzymes 12/18/18 12/18/18 12/18/18 Range/Units 11:42 11:42 18: AST 15 (14-36) U/L Troponin I <0.012 <0.012 (0.000-0.034) ng/mL Coagulation 12/18/18 Range/Units 11:42 PT 9.4 (9.0-12.0) sec APTT 22.7 (22.0-30.0) sec CBC 12/18/18 Range/Units 11:42 WBC 8.9 (3.8-10.6) k/uL RBC 4.66 (3.80-5.40) m/uL Hgb 13.3 (11.4-16.0) gm/dL Hct 39.6 (34.0-46.0) % Plt Count 267 (150-450) k/uL Comprehensive Metabolic Panel 12/18/18 Range/Units 11:42 Sodium 141 (137-145) mmol/L Potassium 3.6 (3.5-5.1) mmol/L Chloride 106 (98-107) mmol/L Carbon Dioxide 22 (22-30) mmol/L BUN 18 H (7-17) mg/dL Creatinine 0.94 (0.52-1.04) mg/dL Glucose 182 H (74-99) mg/dL Calcium 9.5 (8.4-10.2) mg/dL AST 15 (14-36) U/L ALT 8 L (9-52) U/L Alkaline Phosphatase 95 (38-126) U/L Total Protein 7.7 (6.3-8.2) g/dL Albumin 4.2 (3.5-5.0) g/dL Current Medications Generic Name Dose Route Start Last Admin Trade Name Freq PRN Reason Stop Dose Admin Aspirin 325 mg 12/19/18 09:00 Aspirin PO DAILY [facility] Atorvastatin Calcium 10 mg 12/19/18 09:00 Lipitor PO DAILY [facility] Carbidopa/Levodopa 1 each 12/18/18 17:15 12/18/18 18:01 Sinemet 25-100 PO Not Given TID [facility] Cyanocobalamin 5,000 mcg 12/19/18 09:00 Vitamin B-12 PO DAILY [facility] Ezetimibe 10 mg 12/19/18 09:00 Zetia PO DAILY [facility] Enoxaparin Sodium 40 mg 12/18/18 17:15 12/18/18 18:01 Lovenox SQ Not Given DAILY [facility] Escitalopram Oxalate 20 mg 12/19/18 09:00 Lexapro PO DAILY [facility] Insulin Detemir 48 unit 12/18/18 21:00 Levemir SQ BID@0700,2100 [facility] Levothyroxine Sodium 88 mcg 12/19/18 06:30 Synthroid PO 0630 [facility] Metformin HCl 1,000 mg 12/18/18 21:00 Glucophage PO BID [facility] Multivitamins/Minerals 1 each 12/18/18 21:00 Ivite PO BID [facility] Nitroglycerin 0.4 mg 12/18/18 13:23 Nitrostat SUBLINGUAL Q5M PRN Chest Pain Nitroglycerin 1 inch 12/18/18 18:00 12/18/18 18:06 Nitro-Bid Oint TOPICAL 1 inch Q6HR [facility] Administration Sodium Chloride 10 ml 12/18/18 21:00 Saline Flush IV BID [facility] Topiramate 150 mg 12/18/18 21:00 Topamax PO BID [facility] Intake and Output 12/18/18 12/18/18 12/18/18 06:59 14:59 22:59 Intake Total 240 Balance 240 Intake: Oral 240 Other: Voiding Method Toilet Toilet Weight 63.503 kg Patient Weight 12/19/18 06:59 Weight 63.503 kg 12/18/18 11:42 12/18/18 11:42
[2018-12-18 19:49] LABS: Glucose,Whole Blood 118 mg/dL (75-99)
[2018-12-18] MEDS: VIT A,C & E-LUTEIN-MINERALS 1 EACH TAB PO SCH (21:09)
[2018-12-18] MEDS: TOPIRAMATE 100 MG TAB PO SCH (21:09)
[2018-12-18] MEDS: metFORMIN 500 MG TAB PO SCH (21:10)
[2018-12-18] MEDS: INSULIN DETEMIR (LEVEMIR) 100 UNIT/ML SYR SQ SCH (21:10)
--- NOTE | 2018-12-18 21:19 | P.HPIM ---
History of Present Illness H&P Date: 12/18/18 Chief Complaint: Chest pain History of presenting complaint: This is a 73-year-old patient of Dr. Washington is chronic stable medical conditions include diabetes mellitus type 2, hyperlipidemia, osteoarthritis, hypothyroid, peripheral neuropathy, Parkinson's disease, hypothyroid. Irritable bowel syndrome. Patient occasionally gets chest pressure with exertion. Last 2 days became more prominent. Patient gets prechordal pain sometimes sharp and of this occasion going to the back of the shoulder. Also some shortness of breath. No dizziness no lightheadedness and no perspiration. Worse with activity and better with rest. Admitted unstable angina for cardiac workup. No prior cardiac history in the past. Review of systems: GEN.: Tired EYES: None HEENT: None NECK: None RESPIRATORY: None CARDIOVASCULAR: As above GASTROINTESTINAL: None GENITOURINARY: None MUSCULOSKELETAL: Joint pains LYMPHATICS: None HEMATOLOGICAL: None PSYCHIATRY: None NEUROLOGICAL: Some tremors Social history: . Smoked for 20 years stopped in 1991. No alcohol. Physical examination: VITAL SIGNS: 97.3, 77, 18, 11 5/64, 96% room air GENERAL: BMI 24, sitting up comfortable. EYES: Pupils equal. Conjunctiva normal. HEENT: External appearance of nose and ears normal, oral cavity grossly normal. NECK: JVD not raised; masses not palpable. HEART: First and second heart sounds are normal; no edema. LUNGS: Respiratory rate normal; clear to auscultation. ABDOMEN: Soft, nontender, liver spleen not palpable, no masses palpable. PSYCH: Alert and oriented x3; mood and affect normal. NEUROLOGICAL: Cranial nerves grossly intact; no facial asymmetry, power and sensation grossly intact. LYMPHATICS: No lymph nodes palpable in the axilla and neck INVESTIGATIONS, reviewed in the clinical context: White count [age]-year-old woman 30.3 platelets 267 potassium 3.6 creatinine 0.94 Glucose 96 118 EKG tracing-personally reviewed by me shows normal sinus rhythm nonspecific T-wave changes Chest x-ray film-personally reviewed by me shows pulses to be clear Assessment: -Possible unstable angina with some EKG changes in the patient's cardiac risk factors include diabetes, hyperlipidemia, age. -Diabetes mellitus type 2, chronically on insulin -Hyperlipidemia -Primary osteoarthritis -Hypothyroid -Aortic peripheral neuropathy -Parkinson disease -Irritable bowel syndrome Plan: Home medications resumed. Accu-Cheks will be followed. Cardiology was consulted. Patient will need at least a stress test given that progressive nature of the symptoms. Unlikely will rule out PE given the d-dimer Past Medical History Past Medical History: Diabetes Mellitus, Eye Disorder, Hyperlipidemia, Musculoskeletal Disorder, Neurologic Disorder, Osteoarthritis (OA), Thyroid Disorder, Vascular Disorder Additional Past Medical History / Comment(s): IDDM type II, neuropathy L hand/L foot toes, parkinson's disease, small brain aneurysm, peptic ulcers, beginning of macular degeneration bilaterally, UTI, hypothyroid, frequent headaches, back pain/arthritis in back, IBS. History of Any Multi-Drug Resistant Organisms: None Reported Past Surgical History: Cholecystectomy, Hysterectomy Additional Past Surgical History / Comment(s): D&C, multiple surgeries for stabismus bilaterally, bilateral cataract removals/lens implants, colonoscopy. Past Anesthesia/Blood Transfusion Reactions: No Reported Reaction Smoking Status: Former smoker - Past Family History Mother Family Medical History: Vascular Disorder Additional Family Medical History / Comment(s): brain aneurysm - at age 45 Father History Unknown: Yes Family Medical History: Coronary Artery Disease (CAD) Additional Family Medical History / Comment(s): Pt was not raised by biological father. Medications and Allergies Home Medications Medication Instructions Recorded Confirmed Type Escitalopram [Lexapro] 20 mg PO DAILY 09/18/15 12/18/18 History Ezetimibe/Simvastatin [Vytorin 1 tab PO DAILY 09/18/15 12/18/18 History 10-20 mg Tablet] metFORMIN HCL 1,000 mg PO BID 09/18/15 12/18/18 History Carbidopa-Levodopa 25-100 mg 1 tab PO TID 12/18/18 12/18/18 History [Sinemet 25-100] Cholecalciferol [Vitamin D3 (25 1,000 unit PO DAILY 12/18/18 12/18/18 History Mcg = 1000 Iu)] Cyanocobalamin (Vitamin B-12) 5,000 mcg PO DAILY 12/18/18 12/18/18 History [Vitamin B-12] Insulin Detemir [Levemir Flextouch] 48 units SQ BID 12/18/18 12/18/18 History Levothyroxine Sodium [Synthroid] 88 mcg PO DAILY 12/18/18 12/18/18 History Topiramate [Topamax] 150 mg PO BID 12/18/18 12/18/18 History Vit C/E/Zn/Coppr/Lutein/Zeaxan 1 cap PO BID 12/18/18 12/18/18 History [Preservision Areds 2 Softgel] Allergies Allergy/AdvReac Type Severity Reaction Status Date / Time codeine Allergy Anaphylaxis Verified 12/18/18 12:02 Iodinated Contrast Media Allergy Nausea & Verified 12/18/18 12:02 [Iodinated Contrast- Oral Vomiting and IV Dye] meperidine HCl [From Demerol] Allergy Anaphylaxis Verified 12/18/18 12:02 Physical Exam Vitals: Vital Signs Temp Pulse Pulse Resp BP BP BP 12/18/18 19:43 17 12/18/18 19:36 98.0 F 67 15 118/68 12/18/18 15:58 77 18 12/18/18 14:56 77 18 12/18/18 14:40 97.3 F L 77 18 115/64 115/64 12/18/18 14:20 98.2 F 78 20 108/60 12/18/18 13:00 68 18 102/64 12/18/18 12:18 87 20 106/71 12/18/18 12:12 81 20 127/71 12/18/18 12:07 80 20 128/79 12/18/18 11:25 97.9 F 83 20 143/76 Pulse Ox 12/18/18 19:43 12/18/18 19:36 97 12/18/18 15:58 12/18/18 14:56 12/18/18 14:40 96 12/18/18 14:20 99 12/18/18 13:00 98 12/18/18 12:18 99 12/18/18 12:12 96 12/18/18 12:07 98 12/18/18 11:25 99 Intake and Output 12/18/18 12/18/18 12/18/18 06:59 14:59 22:59 Intake Total 240 Balance 240 Intake: Oral 240 Other: Voiding Method Toilet Toilet Weight 63.503 kg Results CBC & Chem 7: 12/18/18 11:42 12/18/18 11:42 Labs: Abnormal Lab Results - Last 24 Hours (Table) 12/18/18 12/18/18 12/18/18 Range/Units 11:42 11:42 19:47 D-Dimer 0.66 H (<0.60) mg/L FEU BUN 18 H (7-17) mg/dL Glucose 182 H (74-99) mg/dL POC Glucose (mg/dL) 118 H (75-99) mg/dL ALT 8 L (9-52) U/L Thrombosis Risk Factor Assmnt - Choose All That Apply Any of the Below Risk Factors Present?: Yes Other Risk Factors: Yes Each Risk Factor Represents 2 Points: Age 61-74 years Other congenital or acquired thrombophilia - If yes, enter type in comment: No Thrombosis Risk Factor Assessment Total Risk Factor Score: 2 Thrombosis Risk Factor Assessment Level: Low Risk
[2018-12-19] MEDS: NITROGLYCERIN OINT 1 INCH/GM PACKET TOPICAL SCH ×3 (01:23→12:27)
[2018-12-19 03:25] LABS: Cholesterol 178 mg/dL (<200); HDL Cholesterol 34 mg/dL (40-60); LDL Cholesterol,Calculated 97 mg/dL (0-99); Triglycerides 234 mg/dL (<150)
[2018-12-19 04:15] VITALS: TEMP 98
[2018-12-19] MEDS ORDERED: LEVOTHYROXINE 88 MCG TAB PO SCH (06:30)
[2018-12-19 06:37] LABS: Glucose,Whole Blood 76 mg/dL (75-99)
--- NOTE | 2018-12-19 07:21 | P.PN ---
Progress Note - Text Progress Note Date: 12/19/18 This is a pleasant 73-year-old female patient with diabetes, hypertension, dyslipidemia, and Parkinson disease, was admitted to the hospital with atypical chest discomfort and was ruled out for acute coronary event. The patient was seen yesterday by Dr. Qiu who diagnosed the patient with costochondritis. On follow-up with her today, she is asymptomatic. I did tell the patient that she is to have a stress test as an outpatient probably to rule out severe underlying coronary artery disease. The patient would like to be discharged home.
[2018-12-19] MEDS: INSULIN DETEMIR (LEVEMIR) 100 UNIT/ML SYR SQ SCH (08:02)
[2018-12-19] MEDS: metFORMIN 500 MG TAB PO SCH (08:09)
[2018-12-19 08:21] VITALS: RESP 16
[2018-12-19] MEDS: CARBIDOPA-LEVODOPA 25-100 MG 1 EACH TAB PO SCH ×2 (08:35→16:28)
[2018-12-19] MEDS: ENOXAPARIN 40 MG/0.4 ML SYRINGE SQ SCH (08:37)
[2018-12-19] MEDS: TOPIRAMATE 100 MG TAB PO SCH (08:38)
[2018-12-19] MEDS: VIT A,C & E-LUTEIN-MINERALS 1 EACH TAB PO SCH (08:39)
[2018-12-19] MEDS ORDERED: ATORVASTATIN 20 MG TAB PO SCH (09:00)
[2018-12-19] MEDS ORDERED: ATORVASTATIN 10 MG TAB PO SCH (09:00)
[2018-12-19] MEDS ORDERED: EZETIMIBE 10 MG TAB PO SCH (09:00)
[2018-12-19] MEDS ORDERED: SIMVASTATIN PO SCH (09:00)
[2018-12-19] MEDS ORDERED: EZETIMIBE PO SCH (09:00)
[2018-12-19] MEDS ORDERED: ESCITALOPRAM 20 MG TAB PO SCH (09:00)
[2018-12-19] MEDS ORDERED: ASPIRIN 325 MG TAB PO SCH (09:00)
[2018-12-19] MEDS ORDERED: CYANOCOBALAMIN 500 MCG TAB PO SCH (09:00)
[2018-12-19] MEDS ORDERED: ASPIRIN 81 MG PO SCH (09:00)
[2018-12-19 11:32] LABS: Glucose,Whole Blood 101 mg/dL (75-99)
[2018-12-19 12:05] VITALS: BP 112/69; PULSE 69
--- NOTE | 2018-12-19 15:25 | NM ---
EXAMINATION TYPE: NM pul vent and perfuse DATE OF EXAM: 12/19/2018 COMPARISON: NONE HISTORY: Chest pain and difficulty breathing TECHNIQUE: Utilizing inhalation of 66.1 mCi Tc 99m DTPA aerosol and intravenous injection of 4.89 mC i of Tc 99m MAA, ventilation and perfusion images are acquired post injection in multiple projections . FINDINGS: Normal radiotracer distribution is noted in the lungs. There is no evidence of mismatched defects. IMPRESSION: THIS EXAMINATION IS NEGATIVE.
--- NOTE | 2018-12-19 16:13 | P.DS ---
Providers Date of admission: 12/18/18 13:23 Expected date of discharge: 12/19/18 Attending physician: Rashad Bird Consults: 12/18/18 13:23 Consult Physician Urgent Consulting Provider: Calixto Alberto Consult Reason/Comments: cp Do you want consulting provider notified?: Yes Primary care physician: [facility] Course: Ms. Yu is a 73-year-old female with a past medical history of hypertension, hyperlipidemia, type 2 diabetes mellitus, hypothyroidism, peripheral neuropathy, Parkinson's disease, hypothyroidism coming into the hospital with a chief complaint of chest pain. Patient states that the pain is mostly in the front of her chest near the costochondral junctions and it is worse on taking a deep breath. Patient denied having any difficulty in breathing. Patient didn't have any cough. No fever chills or rigors. Patient has been admitted for ACS rule out. She was evaluated by Dr. Hobson and had 3 serial cardiac enzymes and EKGs that were within normal limits. Patient had an elevated d-dimer at 0.66, as the patient has ALLERGIES to iodine, she had a VQ scan that was negative today. The patient was seen by Dr. Newman this morning, who suggested a stress test as outpatient and that the patient is stable to be discharged home. Review of systems: GEN.: Tired EYES: None HEENT: None NECK: None RESPIRATORY: None CARDIOVASCULAR: As above GASTROINTESTINAL: None GENITOURINARY: None MUSCULOSKELETAL: Joint pains LYMPHATICS: None HEMATOLOGICAL: None PSYCHIATRY: None NEUROLOGICAL: Some tremors Vital Signs - 8 hr 12/19/18 12:00 Temperature 98.0 F Pulse Rate [ 69 Pulse Oximetery ] Respiratory 16 Rate Blood Pressure 112/69 [Right Arm] O2 Sat by Pulse 97 Oximetry GENERAL: Alert and awake, in no apparent distress EYES: Pupils equal. Conjunctiva normal. HEENT: External appearance of nose and ears normal, oral cavity grossly normal. NECK: JVD not raised; masses not palpable. HEART: First and second heart sounds are normal; no edema. LUNGS: Respiratory rate normal; clear to auscultation. ABDOMEN: Soft, nontender, liver spleen not palpable, no masses palpable. PSYCH: Alert and oriented x3; mood and affect normal. NEUROLOGICAL: Cranial nerves grossly intact; no facial asymmetry, power and sensation grossly intact. DISCHARGE DIAGNOSIS -Possible unstable angina with some EKG changes in the patient's cardiac risk factors include diabetes, hyperlipidemia, age. -Diabetes mellitus type 2, chronically on insulin -Hyperlipidemia -Primary osteoarthritis -Hypothyroid -Aortic peripheral neuropathy -Parkinson disease -Irritable bowel syndrome PLAN: Patient is currently chest pain-free. She had a VQ scan that was negative for PE. She has been cleared by cardiology to be discharged home. No changes in her medication regimen was made. She is advised to follow-up with cardiology for an outpatient stress test. The treatment plan was discussed in detail with the patient and her at bedside. More than 45 minutes spent for the discharge of the patient. Patient Condition at Discharge: Good Plan - Discharge Summary Discharge Rx Participant: No New Discharge Prescriptions: Continue metFORMIN HCL 1,000 mg PO BID Escitalopram [Lexapro] 20 mg PO DAILY Ezetimibe/Simvastatin [Vytorin 10-20 mg Tablet] 1 tab PO DAILY Cyanocobalamin (Vitamin B-12) [Vitamin B-12] 5,000 mcg PO DAILY Cholecalciferol [Vitamin D3 (25 Mcg = 1000 Iu)] 1,000 unit PO DAILY Vit C/E/Zn/Coppr/Lutein/Zeaxan [Preservision Areds 2 Softgel] 1 cap PO BID Levothyroxine Sodium [Synthroid] 88 mcg PO DAILY Topiramate [Topamax] 150 mg PO BID Insulin Detemir [Levemir Flextouch] 48 units SQ BID Carbidopa-Levodopa 25-100 mg [Sinemet 25-100 mg] 1 tab PO TID Discharge Medication List Escitalopram [Lexapro] 20 mg PO DAILY 09/18/15 [History] Ezetimibe/Simvastatin [Vytorin 10-20 mg Tablet] 1 tab PO DAILY 09/18/15 [History] metFORMIN HCL 1,000 mg PO BID 09/18/15 [History] Carbidopa-Levodopa 25-100 mg [Sinemet 25-100 mg] 1 tab PO TID 12/18/18 [History] Cholecalciferol [Vitamin D3 (25 Mcg = 1000 Iu)] 1,000 unit PO DAILY 12/18/18 [History] Cyanocobalamin (Vitamin B-12) [Vitamin B-12] 5,000 mcg PO DAILY 12/18/18 [History] Insulin Detemir [Levemir Flextouch] 48 units SQ BID 12/18/18 [History] Levothyroxine Sodium [Synthroid] 88 mcg PO DAILY 12/18/18 [History] Topiramate [Topamax] 150 mg PO BID 12/18/18 [History] Vit C/E/Zn/Coppr/Lutein/Zeaxan [Preservision Areds 2 Softgel] 1 cap PO BID 12/18/18 [History] Follow up Appointment(s)/Referral(s): Wilbert Washington MD [Primary Care Provider] - 1-2 days Josue Reaves MD [STAFF PHYSICIAN] - 1 Week Discharge Disposition: HOME SELF-CARE
== END 2018-12-19 16:30 | disposition home or self-care (01) ==
LOC: EC 11:22 → 1SOBS 13:23
PROVIDERS: ADMIT Hospitalist; ATTEND Hospitalist
DX: R07.89 Other chest pain (principal); I10 Essential (primary) hypertension; M94.0 Chondrocostal junction syndrome [Tietze]; R06.02 Shortness of breath; E78.5 Hyperlipidemia, unspecified; E03.9 Hypothyroidism, unspecified; E11.42 Type 2 diabetes mellitus with diabetic polyneuropathy; G20 Parkinson's disease; R79.89 Other specified abnormal findings of blood chemistry; R94.31 Abnormal electrocardiogram [ECG] [EKG]; M19.91 Primary osteoarthritis, unspecified site; K58.9 Irritable bowel syndrome, unspecified; M46.90 Unspecified inflammatory spondylopathy, site unspecified; H35.30 Unspecified macular degeneration; I67.1 Cerebral aneurysm, nonruptured; I95.9 Hypotension, unspecified; F32.9 Major depressive disorder, single episode, unspecified; Z87.891 Personal history of nicotine dependence; Z87.11 Personal history of peptic ulcer disease; Z87.440 Personal history of urinary (tract) infections; Z90.49 Acquired absence of other specified parts of digestive tract; Z79.899 Other long term (current) drug therapy; Z79.4 Long term (current) use of insulin; Z79.890 Hormone replacement therapy; Z90.710 Acquired absence of both cervix and uterus; Z91.048 Other nonmedicinal substance allergy status; Z88.5 Allergy status to narcotic agent; Z82.49 Family history of ischemic heart disease and other diseases of the circulatory system
CPT/HCPCS: 93005 ×2; 99285; 36415; 94760; 85379; 83880; 80061; 80053; 83735; 84484; 85025; 85610; 85730; 71046; 78582; G0378 ×2; A9540; A9567

== ENCOUNTER → 2019-01-08 | Outpatient (CLI) | payer MEDICARE, BC | END | disposition home or self-care (01) | LOC: CPPFTMAIN 08:18 | PROVIDERS: ATTEND Internal Medicine Critical Care Medicine | DX: I99.8 Other disorder of circulatory system (principal); G70.9 Myoneural disorder, unspecified | CPT/HCPCS: 94060; 94726; 94729 ==

== ENCOUNTER → 2019-02-26 | Outpatient (CLI) | payer MEDICARE, BC ==
[2019-02-26 13:14] LABS: HCT 39.2 % (34.0-46.0); HGB 12.9 gm/dL (11.4-16.0); MCH 28.7 pg (25.0-35.0); MCV 87.1 fL (80.0-100.0); Mean Platelet Volume 7.6; Platelet Count 276 k/uL (150-450); RBC 4.51 m/uL (3.80-5.40); RDW 12.9 % (11.5-15.5); WBC 6.8 k/uL (3.8-10.6)
[2019-02-26 13:23] LABS: Potassium 3.8 mmol/L (3.5-5.1)
== END | disposition home or self-care (01) ==
LOC: LABPAT 11:52
PROVIDERS: ATTEND Internal Medicine Interventional Cardiology
DX: Z01.812 Encounter for preprocedural laboratory examination (principal); R07.9 Chest pain, unspecified
CPT/HCPCS: 80051; 82565; 85027

== ENCOUNTER → 2019-03-08 | Day surgery (SDC) | payer MEDICARE, BC ==
[2019-02-26 11:36] VITALS: BMI 24.3
[~2019-03-08] MED LIST: ACETAMINOPHEN TAB 325 MG TAB ONE; ALPRAZolam 0.25 MG TAB PO PRN; ALPRAZolam 0.5 MG TAB PO PRN; ASPIRIN 325 MG TAB PO ONE; ATORVASTATIN 80 MG TAB PO ONE; CARBIDOPA-LEVODOPA 25-100 MG 1 EACH TAB PO SCH; CHOLECALCIFEROL 1,000 UNIT TAB PO SCH; CYANOCOBALAMIN 5000 MCG PO SCH; ESCITALOPRAM 20 MG TAB PO SCH; EZETIMIBE PO SCH; HEPARIN SODIUM 1,000 UN/ML (10ML VL) ONE; INSULIN DETEMIR 48 UNIT SQ SCH; IOPAMIDOL-370 125ML BTL INJ ONE; LEVOTHYROXINE 88 MCG TAB PO SCH; LIDOCAINE 1% INJ 10MG/ML (20 ML MDV) ONE; LIDOCAINE 1% INJ 10MG/ML (20 ML MDV) SQ ONE; NITROGLYCERIN SL TABS 0.4 MG TAB SUBLINGUAL PRN; NON FORMULARY DRUG (Vit C/E/Zn/Coppr/Lutein/Zeaxan [Preservision Areds 2 Softgel] 1 CAP) PO SCH; RX INFO: IV CONTRAST WAS GIVEN 1 EACH MISC MISCELLANE PRN; SIMVASTATIN PO SCH; SODIUM CHLORIDE 0.9% 1,000 ML IV SCH; SODIUM CHLORIDE 0.9% 1,000 ML in EMPTY BAG 1 BAG IV ONE; TOPIRAMATE 100 MG TAB PO SCH; VERAPAMIL 2.5 MG/ML 2 ML AMP ONE; VERAPAMIL SYRINGE (5 MG/10 ML) INTRAARTER ONE; fentaNYL (PF) 50 MCG/ML 2 ML AMP IV ONE; fentaNYL (PF) 50 MCG/ML 2 ML AMP ONE
[2019-03-08 06:33] LABS: Glucose,Whole Blood 270 mg/dL (75-99)
[2019-03-08] MEDS: INSULIN ASPART (NovoLOG) 100 UNIT/ML VIAL SQ SCH ×2 (06:34→09:16)
[2019-03-08 06:35] VITALS: RESP 18; TEMP 98
--- NOTE | 2019-03-08 08:42 | CC ---
CARDIAC CATHETERIZATION REPORT Mrs. Yu is a 74-year-old female with a history of hypertension, diabetes and hyperlipidemia who has been complaining of progressive dyspnea and fatigue, had an abnormal myocardial perfusion imaging. In view of that, recommendation was made regarding cardiac catheterization. The procedure as well as the risks and complications were discussed with the patient who is in full understanding and agreement. PROCEDURE: Patient was brought to chemistry laboratory technician in a fasting semi-sedated state after receiving fentanyl and Benadryl and achieving moderate conscious sedated state. Using Xylocaine anesthesia in the Seldinger technique, a 6-Armenian sheath was introduced in the right radial artery. Selective right and left coronary angiography were performed using 5- Armenian 3.5 bend right and left Finn catheter. Multiple views of the coronary artery including hemiaxial views were obtained. Following that the right Finn catheter was used to cross the aortic valve and left ventricular end-diastolic pressure was calculated. Following that, catheter and sheath were removed. Hemostasis was obtained with deployment of a TR band. There was no immediate complication. Patient was returned to her room in stable condition. Of note, patient received 4000 units of intravenous heparin as well as intra-arterial verapamil. There was no immediate complication. FINDINGS: LEFT MAIN: This is a short size vessel bifurcating in left circumflex and left anterior descending artery. Left main coronary artery has no evidence of high-grade stenosis. LEFT ANTERIOR DESCENDING ARTERY: This is a large-sized vessel reaching to the apex with a wraparound apex segment giving rise to 2 diagonal branches. The left anterior descending artery in the mid segment has a 20% to 30% plaque. The rest of the vessel has no high-grade stenosis, LEFT CIRCUMFLEX: This is a nondominant large vessel giving rise to 2 obtuse marginal branches. The first one is large in caliber. The left circumflex as well as branches have no evidence of obstructive coronary artery disease. RIGHT CORONARY ARTERY: This is a dominant vessel bifurcating distally PDA and posterolateral segment and branches. The mid right coronary artery has a 20% plaque. The rest of the vessel has no high-grade stenosis. LEFT VENTRICULOGRAM: Left ventriculogram is not performed. HEMODYNAMICS: There was no gradient across the aortic valve. The left ventricular end-diastolic pressure was 8 mmHg. CONCLUSION: 1. Mild coronary artery disease involving the left anterior descending artery and the right coronary artery. 2. Normal left ventricular end-diastolic pressure. RECOMMENDATION: In view of finding anatomy, I recommend continue medical therapy with aggressive coronary risk modifications that have been initiated. Those findings and recommendation were discussed with the patient and her family and they are in full understanding and agreement. Duration of procedure is 14 minutes. MMIRMAL / KENYAN: [id number] /
[2019-03-08 08:58] LABS: Glucose,Whole Blood 243 mg/dL (75-99)
[2019-03-08 12:30] VITALS: BP 133/68; PULSE 60
== END | disposition home or self-care (01) ==
LOC: CATHCVL 05:41
PROVIDERS: ATTEND Internal Medicine Interventional Cardiology
DX: I25.10 Atherosclerotic heart disease of native coronary artery without angina pectoris (principal); I10 Essential (primary) hypertension; E78.00 Pure hypercholesterolemia, unspecified; E11.9 Type 2 diabetes mellitus without complications; E78.2 Mixed hyperlipidemia; F17.210 Nicotine dependence, cigarettes, uncomplicated; Z79.4 Long term (current) use of insulin; Z79.890 Hormone replacement therapy; Z79.899 Other long term (current) drug therapy; Z88.5 Allergy status to narcotic agent; Z91.041 Radiographic dye allergy status
CPT/HCPCS: 93458; C1769; C1894; J2001; J3010; J1644; Q9967

== ENCOUNTER → 2019-09-13 | Outpatient (CLI) | payer MEDICARE, BC ==
[2019-09-13 16:08] LABS: African American GFR (CKD) 65.2 (60.0-200.0); Albumin 4.2 g/dL (3.80-4.90); Albumin/Globulin Ratio 1.75 (1.60-3.17); Anion Gap 5.1 mmol/L (4.00-12.00); Carbon Dioxide 25.9 mmol/L (21.6-31.8); Chol/HDL Ratio 4.76; Globulin 2.4 g/dL (1.6-3.3); Non-African American GFR(CKD) 56.2 (60.0-200.0); Total Bilirubin 0.5 mg/dL (0.2-1.2); Total Protein 6.6 g/dL (6.2-8.2)
[2019-09-13 17:37] LABS: Urine Creatinine 106.5 mg/dL
== END | disposition home or self-care (01) ==
LOC: LABWHC1 09:49
PROVIDERS: ATTEND Internal Medicine Endocrinology, Diabetes & Metabolism
DX: E11.65 Type 2 diabetes mellitus with hyperglycemia (principal)
CPT/HCPCS: 36415; 80053; 80061; 82043; 82570; 83036; 84443

== ENCOUNTER → 2019-10-15 | Outpatient (CLI) | payer MEDICARE, BC ==
--- NOTE | 2019-10-18 14:20 | MM ---
Reason for exam: screening (asymptomatic). Last mammogram was performed 1 year ago. History: Patient is postmenopausal. Benign core biopsy of the right breast, January 09, 1998. Benign excisional biopsy of the left breast, 1989. Core biopsy of the left breast. Core biopsy of the right breast. Took estrogen for 6 years. Physical Findings: A clinical breast exam by your physician is recommended on an annual basis and results should be correlated with mammographic findings. MG 3D Screening Mammo W/Cad Bilateral CC and MLO view(s) were taken. Prior study comparison: October 05, 2018, bilateral MG 3d screening mammo w/cad. September 08, 2017, bilateral MG 3d diag mammo w/cad JES. The breast tissue is heterogeneously dense. This may lower the sensitivity of mammography. There are benign appearing round dystrophic calcifications bilaterally. Previous mammotome biopsy in the right breast. There is chronic nodularity bilaterally. There is no discrete abnormality. ASSESSMENT: Benign, BI-RAD 2 RECOMMENDATION: Routine screening mammogram of both breasts in 1 year.
== END | disposition home or self-care (01) ==
LOC: RADMAMWWP 09:09
PROVIDERS: ATTEND Family Medicine
DX: Z12.31 Encounter for screening mammogram for malignant neoplasm of breast (principal)
CPT/HCPCS: 77063; 77067

== ENCOUNTER → 2020-04-17 | Outpatient (CLI) | payer MEDICARE, BC ==
--- NOTE | 2020-04-17 12:31 | XR ---
EXAMINATION TYPE: XR lumbosacral spine min 4V DATE OF EXAM: 04/17/2020 Comparison: 09/15/2014 Clinical History: 75-year-old female M54.5 Findings: No pars interarticularis defect. 5 lumbar type vertebral bodies. Cholecystectomy clips. Facet arthrop athy lower lumbar spine. Vertebral body heights are preserved and alignment is maintained. Atheroscle rotic calcifications throughout the abdominal aorta. IMPRESSION: Facet arthropathy lower lumbar spine. No vertebral compression collapse or malalignment.
== END | disposition home or self-care (01) ==
LOC: RADXRMAIN 09:57
PROVIDERS: ATTEND Nurse Practitioner Family
DX: M47.816 Spondylosis without myelopathy or radiculopathy, lumbar region (principal)
CPT/HCPCS: 72110

== ENCOUNTER → 2020-04-17 | Outpatient (CLI) | payer MEDICARE, BC ==
[2020-04-17 16:13] LABS: ALT <8 U/L (8-44); AST 14 U/L (13-35); African American GFR (CKD) 57.7 (60.0-200.0); Albumin/Globulin Ratio 1.91 (1.60-3.17); Alkaline Phosphatase 96 U/L (41-126); BUN/Creat Ratio 18.18 Ratio (12.00-20.00); Carbon Dioxide 25.7 mmol/L (21.6-31.8); Chloride 110 mmol/L (96-109); Chol/HDL Ratio 4.46; Cholesterol 156 mg/dL (0-200); Globulin 2.3 g/dL (1.6-3.3); Glucose 123 mg/dL (70-110); Non-African American GFR(CKD) 49.8 (60.0-200.0); Sodium 142 mmol/L (135-145); Total Bilirubin 0.3 mg/dL (0.2-1.2); Total Protein 6.7 g/dL (6.2-8.2)
[2020-04-17 16:45] LABS: Hemoglobin A1C 6.2 % (4.0-6.0)
[2020-04-17 18:52] LABS: Urine Creatinine 154.8 mg/dL
== END | disposition home or self-care (01) ==
LOC: LABWHC1 09:04
PROVIDERS: ATTEND Internal Medicine Endocrinology, Diabetes & Metabolism
DX: E11.9 Type 2 diabetes mellitus without complications (principal)
CPT/HCPCS: 36415; 80053; 80061; 82043; 82570; 83036; 84443

== ENCOUNTER 2020-06-01 13:13 | Emergency (ER) | payer MEDICARE, BC ==
--- NOTE | 2020-06-01 13:25 | ED ---
General Adult HPI - General Source: patient, RN notes reviewed Mode of arrival: ambulatory Limitations: no limitations <Sal Emanuel - Last Filed: 06/01/20 13:22> <Ronald Guy - Last Filed: 06/01/20 18:29> - General Stated complaint: COVID+ 05/17 Time Seen by Provider: 06/01/20 13:19 - History of Present Illness Initial comments: This a 75-year-old female presents emergency Department with chief complaint of generalized weakness. Patient states that she tested positive for covid on 05/17/2020. Patient states that she's been losing weight states that she is very tired, fatigued. She has states that she does have some lower back discomfort. Patient states that she's had no recent shortness of breath or chest pain. She states her PCP told her to come in secondary to possible dehydration, generalized weakness. Patient denies any recent fevers or chills. No headache no dizziness no blurred vision. (Sal Emanuel) Dictation was produced using [employer] dictation software. please excuse any g rammatical, word or spelling errors. This patient was cared for during a federal and state declared state of emergency secondary to Covid 19 Chief Complaint: 75-year-old female sent in by primary care physician for dehydration History of Present Illness: 75-year-old female sent in by primary care physician for dehydration. Patient states she was diagnosed with Covid approximately 2 weeks ago she's been symptomatic for 3 weeks. She denies any respiratory symptoms. She states she's been having abdominal cramping, nausea or she's had poor appetite. Patient states that when she was initially diagnosed Covid she never complained of respiratory symptoms as abdominal symptoms and fatigue. She has not had any vomiting or diarrhea. Spelled primary care physician today and was instructed to come to the ER for evaluation of dehydration. The ROS documented in this emergency department record has been reviewed and confirmed by me. Those systems with pertinent positive or negative responses have been documented in the HPI. All other systems are other negative and/or noncontributory. PHYSICAL EXAM: General Impression: Alert and oriented x3, not in acute distress HEENT: Normocephalic atraumatic, extra-ocular movements intact, pupils equal and reactive to light bilaterally, mucous membranes moist. Cardiovascular: Heart regular rate and rhythm Chest: Able to complete full sentences, no retractions, no tachypnea Abdomen: abdomen soft, mild diffuse abdominal palpatory tenderness, non- distended, no organomegaly Musculoskeletal: Pulses present and equal in all extremities, no peripheral edema Motor: no focal deficits noted Neurological: CN II-XII grossly intact, no focal motor or sensory deficits noted Skin: Intact with no visualized rashes Psych: Normal affect and mood ED course: 75-year-old female presents to the emergency department for poor appetite, dehydration. Vital signs upon arrival are within acceptable limits. Laboratory evaluation obtained. Mild leukocytosis at 10.8. Coag panel is unremarkable. Metabolic panel is negative. Cardiac enzymes negative. Urinalysis positive for urinary tract infection. Nitrite positive likely E. coli. Rotavirus is negative. Chest x-ray is nonacute. Rotavirus is negative. 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 She is given 1 g of ceftriaxone. She is well-appearing and tolerating oral. Patient will be discharged with prescription for Keflex. Patient is advised follow-up with her primary care physician. Return parameters discussed. (Ronald Guy) - Related Data Home Medications Medication Instructions Recorded Confirmed Escitalopram [Lexapro] 20 mg PO DAILY 09/18/15 02/26/19 Ezetimibe/Simvastatin [Vytorin 1 tab PO DAILY 09/18/15 02/26/19 10-20 mg Tablet] metFORMIN HCL 1,000 mg PO BID 09/18/15 03/08/19 Carbidopa-Levodopa 25-100 mg 2 tab PO TID 12/18/18 02/26/19 [Sinemet 25-100 mg] Cholecalciferol [Vitamin D3 (25 1,000 unit PO DAILY 12/18/18 03/08/19 Mcg = 1000 Iu)] Cyanocobalamin (Vitamin B-12) 5,000 mcg PO DAILY 12/18/18 03/08/19 [Vitamin B-12] Insulin Detemir [Levemir Flextouch] 48 units SQ BID 12/18/18 03/08/19 Levothyroxine Sodium [Synthroid] 88 mcg PO DAILY 12/18/18 02/26/19 Topiramate [Topamax] 150 mg PO BID 12/18/18 02/26/19 Vit C/E/Zn/Coppr/Lutein/Zeaxan 1 cap PO BID 12/18/18 03/08/19 [Preservision Areds 2 Softgel] Previous Rx's Medication Instructions Recorded Cephalexin [Keflex] 500 mg PO Q6HR 7 Days #28 cap 06/01/20 Allergies Allergy/AdvReac Type Severity Reaction Status Date / Time codeine Allergy Anaphylaxis Verified 06/01/20 13:25 Iodinated Contrast Media Allergy Nausea & Verified 06/01/20 13:25 [Iodinated Contrast- Oral Vomiting and IV Dye] meperidine HCl [From Demerol] Allergy Anaphylaxis Verified 06/01/20 13:25 Review of Systems ROS Other: All systems not noted in ROS Statement are negative. <Sal Emanuel - Last Filed: 06/01/20 13:22> ROS Other: All systems not noted in ROS Statement are negative. <Ronald Guy - Last Filed: 06/01/20 18:29> ROS Statement: Those systems with pertinent positive or pertinent negative responses have been documented in the HPI. Past Medical History Past Medical History: Diabetes Mellitus, Eye Disorder, Hyperlipidemia, Musculoskeletal Disorder, Neurologic Disorder, Osteoarthritis (OA), Thyroid Disorder, Vascular Disorder Additional Past Medical History / Comment(s): IDDM type II, neuropathy L hand/L foot toes, parkinson's disease, small brain aneurysm, peptic ulcers, beginning of macular degeneration bilaterally, hypothyroid, frequent headaches, back pain/arthritis in back, IBS. History of Any Multi-Drug Resistant Organisms: None Reported Past Surgical History: Cholecystectomy, Hysterectomy Additional Past Surgical History / Comment(s): D&C, multiple surgeries for stabismus bilaterally, bilateral cataract removals/lens implants, colonoscopy. Past Anesthesia/Blood Transfusion Reactions: No Reported Reaction Past Psychological History: Depression Additional Psychological History / Comment(s): Pt resides with her spouse. She uses no assistive device. She no longer drives, spouse drives. Past Alcohol Use History: None Reported Additional Past Alcohol Use History / Comment(s): Pt started smoking in 1971 and quit in 1991. Past Drug Use History: None Reported - Past Family History Mother Family Medical History: Vascular Disorder Additional Family Medical History / Comment(s): brain aneurysm - at age 45 Father History Unknown: Yes Family Medical History: Coronary Artery Disease (CAD) Additional Family Medical History / Comment(s): Pt was not raised by biological father. <Sal Emanuel M - Last Filed: 06/01/20 13:22> General Exam General appearance: alert, in no apparent distress Head exam: Present: atraumatic, normocephalic, normal inspection Respiratory exam: Present: normal lung sounds bilaterally. Absent: respiratory distress, wheezes, rales, rhonchi, stridor Cardiovascular Exam: Present: regular rate, normal rhythm, normal heart sounds. Absent: systolic murmur, diastolic murmur, rubs, gallop, clicks <Sal Emanuel M - Last Filed: 06/01/20 13:22> Course Vital Signs 06/01/20 06/01/20 13:21 15:24 Temperature 98.9 F Pulse Rate 95 Respiratory 18 16 Rate Blood Pressure 129/80 O2 Sat by Pulse 97 Oximetry Medical Decision Making - Lab Data Result diagrams: 06/01/20 13:39 06/01/20 13:39 <Ronald Guy - Last Filed: 06/01/20 18:29> - Lab Data Lab Results 06/01/20 06/01/20 06/01/20 Range/Units 13:39 13:39 13:39 WBC 10.8 H (3.8-10.6) k/uL RBC 4.67 (3.80-5.40) m/uL Hgb 13.1 (11.4-16.0) gm/dL Hct 40.2 (34.0-46.0) % MCV 86.1 (80.0-100.0) fL MCH 28.0 (25.0-35.0) pg MCHC 32.6 (31.0-37.0) g/dL RDW 12.9 (11.5-15.5) % Plt Count 401 (150-450) k/uL MPV 6.8 Neutrophils % 75 % Lymphocytes % 18 % Monocytes % 4 % Eosinophils % 1 % Basophils % 0 % Neutrophils # 8.1 H (1.3-7.7) k/uL Lymphocytes # 1.9 (1.0-4.8) k/uL Monocytes # 0.4 (0-1.0) k/uL Eosinophils # 0.1 (0-0.7) k/uL Basophils # 0.0 (0-0.2) k/uL PT 10.1 (9.0-12.0) sec INR 0.9 (<1.2) APTT 22.1 (22.0-30.0) sec Sodium 138 (137-145) mmol/L Potassium 3.7 (3.5-5.1) mmol/L Chloride 104 (98-107) mmol/L Carbon Dioxide 23 (22-30) mmol/L Anion Gap 11 mmol/L BUN 15 (7-17) mg/dL Creatinine 0.94 (0.52-1.04) mg/dL Est GFR (CKD-EPI)AfAm 70 (>60 ml/min/1.73 sqM) Est GFR (CKD-EPI)NonAf 61 (>60 ml/min/1.73 sqM) Glucose 124 H (74-99) mg/dL Plasma Lactic Acid Lm (0.7-2.0) mmol/L Calcium 9.6 (8.4-10.2) mg/dL Magnesium 2.2 (1.6-2.3) mg/dL Total Bilirubin 0.6 (0.2-1.3) mg/dL AST 17 (14-36) U/L ALT <6 (4-34) U/L Alkaline Phosphatase 93 (38-126) U/L Troponin I (0.000-0.034) ng/mL Total Protein 7.6 (6.3-8.2) g/dL Albumin 4.2 (3.5-5.0) g/dL Urine Color Urine Appearance (Clear) Urine pH (5.0-8.0) Ur Specific Dixie (1.001-1.035) Urine Protein (Negative) Urine Glucose (UA) (Negative) Urine Ketones (Negative) Urine Blood (Negative) Urine Nitrite (Negative) Urine Bilirubin (Negative) Urine Urobilinogen (<2.0) mg/dL Ur Leukocyte Esterase (Negative) Urine RBC (0-5) /hpf Urine WBC (0-5) /hpf Ur Squamous Epith Cells (0-4) /hpf Calcium Oxalate Crystal (None) /hpf Urine Bacteria (None) /hpf Urine Mucus (None) /hpf Coronavirus (PCR) (Not Detectd) 06/01/20 06/01/20 06/01/20 Range/Units 13:39 16:27 17:00 WBC (3.8-10.6) k/uL RBC (3.80-5.40) m/uL Hgb (11.4-16.0) gm/dL Hct (34.0-46.0) % MCV (80.0-100.0) fL MCH (25.0-35.0) pg MCHC (31.0-37.0) g/dL RDW (11.5-15.5) % Plt Count (150-450) k/uL MPV Neutrophils % % Lymphocytes % % Monocytes % % Eosinophils % % Basophils % % Neutrophils # (1.3-7.7) k/uL Lymphocytes # (1.0-4.8) k/uL Monocytes # (0-1.0) k/uL Eosinophils # (0-0.7) k/uL Basophils # (0-0.2) k/uL PT (9.0-12.0) sec INR (<1.2) APTT (22.0-30.0) sec Sodium (137-145) mmol/L Potassium (3.5-5.1) mmol/L Chloride (98-107) mmol/L Carbon Dioxide (22-30) mmol/L Anion Gap mmol/L BUN (7-17) mg/dL Creatinine (0.52-1.04) mg/dL Est GFR (CKD-EPI)AfAm (>60 ml/min/1.73 sqM) Est GFR (CKD-EPI)NonAf (>60 ml/min/1.73 sqM) Glucose (74-99) mg/dL Plasma Lactic Acid Lm 1.5 (0.7-2.0) mmol/L Calcium (8.4-10.2) mg/dL Magnesium (1.6-2.3) mg/dL Total Bilirubin (0.2-1.3) mg/dL AST (14-36) U/L ALT (4-34) U/L Alkaline Phosphatase (38-126) U/L Troponin I <0.012 (0.000-0.034) ng/mL Total Protein (6.3-8.2) g/dL Albumin (3.5-5.0) g/dL Urine Color Yellow Urine Appearance Cloudy H (Clear) Urine pH 6.0 (5.0-8.0) Ur Specific Dixie 1.020 (1.001-1.035) Urine Protein Trace H (Negative) Urine Glucose (UA) Negative (Negative) Urine Ketones 2+ H (Negative) Urine Blood Negative (Negative) Urine Nitrite Positive H (Negative) Urine Bilirubin Negative (Negative) Urine Urobilinogen 2.0 (<2.0) mg/dL Ur Leukocyte Esterase Large H (Negative) Urine RBC 9 H (0-5) /hpf Urine WBC 138 H (0-5) /hpf Ur Squamous Epith Cells 5 H (0-4) /hpf Calcium Oxalate Crystal Few H (None) /hpf Urine Bacteria Many H (None) /hpf Urine Mucus Rare H (None) /hpf Coronavirus (PCR) (Not Detectd) 06/01/20 Range/Units 17:07 WBC (3.8-10.6) k/uL RBC (3.80-5.40) m/uL Hgb (11.4-16.0) gm/dL Hct (34.0-46.0) % MCV (80.0-100.0) fL MCH (25.0-35.0) pg MCHC (31.0-37.0) g/dL RDW (11.5-15.5) % Plt Count (150-450) k/uL MPV Neutrophils % % Lymphocytes % % Monocytes % % Eosinophils % % Basophils % % Neutrophils # (1.3-7.7) k/uL Lymphocytes # (1.0-4.8) k/uL Monocytes # (0-1.0) k/uL Eosinophils # (0-0.7) k/uL Basophils # (0-0.2) k/uL PT (9.0-12.0) sec INR (<1.2) APTT (22.0-30.0) sec Sodium (137-145) mmol/L Potassium (3.5-5.1) mmol/L Chloride (98-107) mmol/L Carbon Dioxide (22-30) mmol/L Anion Gap mmol/L BUN (7-17) mg/dL Creatinine (0.52-1.04) mg/dL Est GFR (CKD-EPI)AfAm (>60 ml/min/1.73 sqM) Est GFR (CKD-EPI)NonAf (>60 ml/min/1.73 sqM) Glucose (74-99) mg/dL Plasma Lactic Acid Lm (0.7-2.0) mmol/L Calcium (8.4-10.2) mg/dL Magnesium (1.6-2.3) mg/dL Total Bilirubin (0.2-1.3) mg/dL AST (14-36) U/L ALT (4-34) U/L Alkaline Phosphatase (38-126) U/L Troponin I (0.000-0.034) ng/mL Total Protein (6.3-8.2) g/dL Albumin (3.5-5.0) g/dL Urine Color Urine Appearance (Clear) Urine pH (5.0-8.0) Ur Specific Dixie (1.001-1.035) Urine Protein (Negative) Urine Glucose (UA) (Negative) Urine Ketones (Negative) Urine Blood (Negative) Urine Nitrite (Negative) Urine Bilirubin (Negative) Urine Urobilinogen (<2.0) mg/dL Ur Leukocyte Esterase (Negative) Urine RBC (0-5) /hpf Urine WBC (0-5) /hpf Ur Squamous Epith Cells (0-4) /hpf Calcium Oxalate Crystal (None) /hpf Urine Bacteria (None) /hpf Urine Mucus (None) /hpf Coronavirus (PCR) Not Detected (Not Detectd) Disposition <Sal Emanuel M - Last Filed: 06/01/20 13:22> Is patient prescribed a controlled substance at d/c from ED?: No Time of Disposition: 18:28 <Ronald Guy - Last Filed: 06/01/20 18:29> Clinical Impression: UTI (urinary tract infection) Disposition: HOME SELF-CARE Condition: Fair Instructions (If sedation given, give patient instructions): Urinary Tract Infection in Women (ED) Additional Instructions: Significant medical attention if he develops fever, flank pain or worsening symptoms. There is a chance that your urinary tract infection could become septic. Culture results will be available in 2 days to see if any needed adjustments with your antibiotics. Prescriptions: Cephalexin [Keflex] 500 mg PO Q6HR 7 Days #28 cap Referrals: Wilbert Washington MD [Primary Care Provider] - 1-2 days
[2020-06-01 14:11] LABS: Basophils % (A) 0 %; Eosinophils # (A) 0.1 k/uL (0-0.7); Eosinophils % (A) 1 %; HCT 40.2 % (34.0-46.0); HGB 13.1 gm/dL (11.4-16.0); Lymphocytes # (A) 1.9 k/uL (1.0-4.8); Lymphocytes % (A) 18 %; MCHC 32.6 g/dL (31.0-37.0); MCV 86.1 fL (80.0-100.0); Mean Platelet Volume 6.8; Monocytes # (A) 0.4 k/uL (0-1.0); Monocytes % (A) 4 %; Neutrophils # (A) 8.1 k/uL (1.3-7.7); Neutrophils % (A) 75 %; Platelet Count 401 k/uL (150-450); RBC 4.67 m/uL (3.80-5.40); RDW 12.9 % (11.5-15.5); WBC 10.8 k/uL (3.8-10.6)
[2020-06-01 14:22] LABS: INR 0.9 (<1.2); Partial Thromboplastin Time 22.1 sec (22.0-30.0); Prothrombin Time 10.1 sec (9.0-12.0)
[2020-06-01 14:32] LABS: ALT <6 U/L (4-34); AST 17 U/L (14-36); African American GFR (CKD) 70 (>60 ml/min/1.73 sqM); Albumin 4.2 g/dL (3.5-5.0); Alkaline Phosphatase 93 U/L (38-126); Anion Gap 11 mmol/L; Blood Urea Nitrogen 15 mg/dL (7-17); Calcium 9.6 mg/dL (8.4-10.2); Carbon Dioxide 23 mmol/L (22-30); Chloride 104 mmol/L (98-107); Glucose 124 mg/dL (74-99); Magnesium 2.2 mg/dL (1.6-2.3); Non-African American GFR(CKD) 61 (>60 ml/min/1.73 sqM); Potassium 3.7 mmol/L (3.5-5.1); Sodium 138 mmol/L (137-145); Total Bilirubin 0.6 mg/dL (0.2-1.3); Total Protein 7.6 g/dL (6.3-8.2)
--- NOTE | 2020-06-01 14:37 | XR ---
EXAMINATION TYPE: XR chest 2V DATE OF EXAM: 06/01/2020 COMPARISON: 12/18/2018 HISTORY: Shortness of breath TECHNIQUE: Frontal and lateral views of the chest are obtained. FINDINGS: Scattered senescent parenchymal changes noted. Hyperinflation compatible with COPD. Patchy peripheral infiltrates noted compatible with Covid 19 pneumonia. Heart size is stable. Mediastinal structures are stable and grossly unremarkable. No evidence for hilar prominence. Degenerative changes dorsal spine. IMPRESSION: 1. Patchy peripheral infiltrates noted compatible with Covid 19 pneumonia.
[2020-06-01] MEDS ORDERED: SODIUM CHLORIDE 0.9% 500 ML 500 ML IV STA (16:48)
[2020-06-01 17:01] LABS: Appearance,Urine Cloudy (Clear); Bacteria,Urine Many /hpf; Bilirubin,Urine Negative (Negative); Blood,Urine Negative (Negative); Calcium Oxalate Crystals,Urine Few /hpf; Color,Urine Yellow; Glucose,Urine (UA) Negative (Negative); Ketones,Urine 2+ (Negative); Leukocyte Esterase,Urine Large (Negative); Mucus,Urine Rare /hpf; Nitrite,Urine Positive (Negative); Protein,Urine Trace (Negative); RBC,Urine 9 /hpf (0-5); Squamous Epithelial Cell,Urine 5 /hpf (0-4); WBC,Urine 138 /hpf (0-5)
[2020-06-01] MEDS ORDERED: cefTRIAXone IN SWFI 1,000 MG/10 ML SYRINGE IVP STA (18:13)
[2020-06-01 18:54] VITALS: BP 131/71; PULSE 78; RESP 20; TEMP 98.7
== END 2020-06-01 19:28 | disposition home or self-care (01) ==
LOC: EC 13:13
DX: N39.0 Urinary tract infection, site not specified (principal); E86.0 Dehydration; R53.1 Weakness; R63.0 Anorexia; E78.5 Hyperlipidemia, unspecified; G20 Parkinson's disease; E03.9 Hypothyroidism, unspecified; M19.90 Unspecified osteoarthritis, unspecified site; E11.40 Type 2 diabetes mellitus with diabetic neuropathy, unspecified; Z20.822 Contact with and (suspected) exposure to COVID-19; Z79.4 Long term (current) use of insulin; Z79.890 Hormone replacement therapy; Z87.891 Personal history of nicotine dependence
CPT/HCPCS: 36415; 93005; 80053; 83605; 83735; 84484; 85025; 85610; 85730; 81001; 87086; 87635; 71046; 99284; 96374; 96361; J0696; 87077; 87186

== ENCOUNTER → 2020-09-26 | Outpatient (CLI) | payer MEDICARE, BC ==
[2020-09-26 18:32] LABS: African American GFR (CKD) 73.5 (60.0-200.0); Albumin 4.3 g/dL (3.80-4.90); Albumin/Globulin Ratio 1.54 (1.60-3.17); Anion Gap 3.8 mmol/L (4.00-12.00); BUN/Creat Ratio 31.11 Ratio (12.00-20.00); Calcium 8.9 mg/dL (8.7-10.3); Carbon Dioxide 24.2 mmol/L (21.6-31.8); Chol/HDL Ratio 3.84; Globulin 2.8 g/dL (1.6-3.3); Non-African American GFR(CKD) 63.4 (60.0-200.0); Potassium 4.7 mmol/L (3.5-5.5); Total Bilirubin 0.3 mg/dL (0.3-1.2); Total Protein 7.1 g/dL (6.2-8.2)
[2020-09-26 19:00] LABS: Hemoglobin A1C 6.3 % (4.0-6.0)
[2020-09-26 22:22] LABS: Urine Creatinine 86.3 mg/dL
== END | disposition home or self-care (01) ==
LOC: LABWHC1 08:47
PROVIDERS: ATTEND Internal Medicine Endocrinology, Diabetes & Metabolism
DX: E11.65 Type 2 diabetes mellitus with hyperglycemia (principal)
CPT/HCPCS: 36415; 80053; 80061; 82043; 82570; 83036; 84443

== ENCOUNTER → 2020-12-21 | Outpatient (CLI) | payer MEDICARE, BC ==
--- NOTE | 2020-12-22 12:07 | MM ---
Reason for exam: screening (asymptomatic). Last mammogram was performed 1 year and 2 months ago. History: Patient is postmenopausal. Benign core biopsy of the right breast, January 09, 1998. Benign excisional biopsy of the left breast, 1989. Core biopsy of the left breast. Core biopsy of the right breast. Took estrogen for 6 years. Physical Findings: A clinical breast exam by your physician is recommended on an annual basis and results should be correlated with mammographic findings. MG 3D Screening Mammo W/Cad Bilateral CC and MLO view(s) were taken. Prior study comparison: October 15, 2019, bilateral MG 3d screening mammo w/cad. October 05, 2018, bilateral MG 3d screening mammo w/cad. The breast tissue is heterogeneously dense. This may lower the sensitivity of mammography. No significant changes when compared with prior studies. ASSESSMENT: Benign, BI-RAD 2 RECOMMENDATION: Routine screening mammogram of both breasts in 1 year.
== END | disposition home or self-care (01) ==
LOC: RADMAMWWP 08:32
PROVIDERS: ATTEND Family Medicine
DX: Z12.31 Encounter for screening mammogram for malignant neoplasm of breast (principal); Z78.0 Asymptomatic menopausal state
CPT/HCPCS: 77063; 77067

== ENCOUNTER 2021-05-11 22:00 | Emergency (ER) | payer MEDICARE, BC ==
[2021-05-11] MEDS ORDERED: ONDANSETRON 4 MG/2 ML VIAL IVP STA (22:44)
[2021-05-11] MEDS ORDERED: SODIUM CHLORIDE 0.9% 1,000 ML IV STA (22:44)
[2021-05-11] MEDS ORDERED: MORPHINE SULFATE 4 MG/ML SYRINGE IV STA (22:44)
[2021-05-11] MEDS ORDERED: FAMOTIDINE 20 MG/2 ML VIAL IV STA (22:45)
[2021-05-11] MEDS ORDERED: methylPREDNISolone SOD SUCCI 125 MG/2 ML VIAL IV STA (22:45)
[2021-05-11] MEDS ORDERED: diphenhydrAMINE 50 MG/ML 1 ML VIAL IVP STA (22:45)
--- NOTE | 2021-05-11 22:45 | ED ---
Abdominal Pain HPI - General Chief Complaint: Abdominal Pain Stated Complaint: Abdominal Pain,N/V Time Seen by Provider: 05/11/21 22:43 Source: patient, RN notes reviewed, old records reviewed Mode of arrival: ambulatory Limitations: no limitations - History of Present Illness Initial Comments: this is a 76-year-old female to the emergency department for evaluation of sudden onset left-sided abdominal pain with sudden onset abdominal pain just prior to arrival. Patient was at home tonight working at a computer when this came on hard. Severe pain left-sided. Pain that was sudden onset. Pain in her left back rating to left groin. Also with nausea and vomiting. She has have history of kidney stones versus feels worse. No fevers she has had a colonoscopy in the past which was normal. Abdominal surgery includes hysterectomy and cholecystectomy MD Complaint: abdominal pain, flank pain (left sided) -: hour(s) Location: diffuse, LLQ, L flank Radiation: none Migration to: no migration Severity: moderate, severe Severity scale (1-10): 10 Quality: stabbing, sharp Consistency: constant, intermittent Improves With: nothing Worsens With: nothing Context: other (none) Associated Symptoms: nausea, vomiting - Related Data Home Medications Medication Instructions Recorded Confirmed Escitalopram [Lexapro] 20 mg PO DAILY 09/18/15 05/11/21 Ezetimibe/Simvastatin [Vytorin 1 tab PO DAILY 09/18/15 05/11/21 10-20 mg Tablet] Carbidopa-Levodopa 25-100 mg 3 tab PO TID 12/18/18 05/11/21 [Sinemet 25-100 mg] Insulin Detemir [Levemir Flextouch 30 units SQ BID 12/18/18 05/11/21 Pen] Topiramate [Topamax] 150 mg PO BID 12/18/18 05/11/21 Vit C/E/Zn/Coppr/Lutein/Zeaxan 1 cap PO BID 12/18/18 05/11/21 [Preservision Areds 2 Softgel] Aspirin EC [Ecotrin Low Dose] 81 mg PO DAILY 06/01/20 05/11/21 Levothyroxine Sodium [Synthroid] 75 mcg PO DAILY 06/01/20 05/11/21 Ascorbic Acid [Vitamin C] 500 mg PO DAILY 05/11/21 05/11/21 Cholecalciferol [Vitamin D3 (25 50 mcg PO DAILY 05/11/21 05/11/21 Mcg = 1000 Iu)] Cyanocobalamin (Vitamin B-12) 2,500 mcg PO DAILY 05/11/21 05/11/21 [Vitamin B-12] Zinc 50 mg PO DAILY 05/11/21 05/11/21 Allergies Allergy/AdvReac Type Severity Reaction Status Date / Time codeine Allergy Anaphylaxis Verified 05/11/21 22:13 meperidine HCl [From Demerol] Allergy Anaphylaxis Verified 05/11/21 22:13 Iodinated Contrast Media AdvReac Nausea & Verified 05/11/21 22:13 [Iodinated Contrast- Oral Vomiting and IV Dye] Review of Systems ROS Statement: Those systems with pertinent positive or pertinent negative responses have been documented in the HPI. ROS Other: All systems not noted in ROS Statement are negative. Past Medical History Past Medical History: Diabetes Mellitus, Eye Disorder, Hyperlipidemia, Musculoskeletal Disorder, Neurologic Disorder, Osteoarthritis (OA), Thyroid Disorder, Vascular Disorder Additional Past Medical History / Comment(s): IDDM type II, neuropathy L hand/L foot toes, parkinson's disease, small brain aneurysm, peptic ulcers, beginning of macular degeneration bilaterally, hypothyroid, frequent headaches, back pa in/arthritis in back, IBS. History of Any Multi-Drug Resistant Organisms: None Reported Past Surgical History: Cholecystectomy, Hysterectomy Additional Past Surgical History / Comment(s): D&C, multiple surgeries for stabismus bilaterally, bilateral cataract removals/lens implants, colonoscopy. Past Anesthesia/Blood Transfusion Reactions: No Reported Reaction Past Psychological History: Depression Smoking Status: Never smoker Past Alcohol Use History: None Reported Past Drug Use History: None Reported - Past Family History Mother Family Medical History: Vascular Disorder Additional Family Medical History / Comment(s): brain aneurysm - at age 45 Father History Unknown: Yes Family Medical History: Coronary Artery Disease (CAD) Additional Family Medical History / Comment(s): Pt was not raised by biological father. General Exam Limitations: no limitations General appearance: alert, in no apparent distress, anxious Head exam: Present: atraumatic, normocephalic, normal inspection Eye exam: Present: normal appearance, PERRL, EOMI. Absent: scleral icterus, conjunctival injection, periorbital swelling ENT exam: Present: normal exam, mucous membranes moist Neck exam: Present: normal inspection. Absent: tenderness, meningismus, lymphadenopathy Respiratory exam: Present: normal lung sounds bilaterally. Absent: respiratory distress, wheezes, rales, rhonchi, stridor Cardiovascular Exam: Present: regular rate, normal rhythm, normal heart sounds. Absent: systolic murmur, diastolic murmur, rubs, gallop, clicks GI/Abdominal exam: Present: soft, normal bowel sounds. Absent: distended, tenderness, guarding, rebound, rigid Extremities exam: Present: normal inspection, full ROM, normal capillary refill. Absent: tenderness, pedal edema, joint swelling, calf tenderness Back exam: Present: normal inspection Neurological exam: Present: alert, oriented X3, CN II-XII intact Psychiatric exam: Present: normal affect, normal mood Skin exam: Present: warm, dry, intact, normal color. Absent: rash Course Vital Signs 05/11/21 22:13 Temperature 98.0 F Pulse Rate 59 L Respiratory 20 Rate Blood Pressure 172/76 O2 Sat by Pulse 98 Oximetry - Reevaluation(s) Reevaluation #1: 05/12/21 01:09 medical record is reviewed Reevaluation #2: 05/12/21 01:09 patient has current adequate pain control Reevaluation #3: 05/12/21 01:09 patient is informed of results and questions answered Medical Decision Making - Medical Decision Making 76 female to the emergency department for evaluation of abdominal pain left flank pain. Patient does have left kidney stone. Pain is improved though patient can be discharged home - Lab Data Result diagrams: 05/11/21 23:00 05/11/21 23:00 Lab Results 05/11/21 05/11/21 05/11/21 Range/Units 23:00 23:00 23:00 WBC 14.3 H (3.8-10.6) k/uL RBC 4.44 (3.80-5.40) m/uL Hgb 13.3 (11.4-16.0) gm/dL Hct 40.3 (34.0-46.0) % MCV 90.7 (80.0-100.0) fL MCH 29.9 (25.0-35.0) pg MCHC 33.0 (31.0-37.0) g/dL RDW 13.6 (11.5-15.5) % Plt Count 222 (150-450) k/uL MPV 7.0 Neutrophils % 79 % Lymphocytes % 14 % Monocytes % 3 % Eosinophils % 2 % Basophils % 0 % Neutrophils # 11.3 H (1.3-7.7) k/uL Lymphocytes # 2.0 (1.0-4.8) k/uL Monocytes # 0.5 (0-1.0) k/uL Eosinophils # 0.2 (0-0.7) k/uL Basophils # 0.0 (0-0.2) k/uL PT 10.1 (9.0-12.0) sec INR 0.9 (<1.2) APTT 23.9 (22.0-30.0) sec Sodium 141 (137-145) mmol/L Potassium 3.7 (3.5-5.1) mmol/L Chloride 108 H (98-107) mmol/L Carbon Dioxide 20 L (22-30) mmol/L Anion Gap 13 mmol/L BUN 22 H (7-17) mg/dL Creatinine 1.06 H (0.52-1.04) mg/dL Est GFR (CKD-EPI)AfAm 60 (>60 ml/min/1.73 sqM) Est GFR (CKD-EPI)NonAf 52 (>60 ml/min/1.73 sqM) Glucose 206 H (74-99) mg/dL Plasma Lactic Acid Lm (0.7-2.0) mmol/L Calcium 9.2 (8.4-10.2) mg/dL Total Bilirubin 0.5 (0.2-1.3) mg/dL AST 19 (14-36) U/L ALT 6 (4-34) U/L Alkaline Phosphatase 121 (38-126) U/L Total Protein 7.8 (6.3-8.2) g/dL Albumin 4.4 (3.5-5.0) g/dL Amylase 60 (30-110) U/L Lipase 112 (23-300) U/L 05/11/21 Range/Units 23:00 WBC (3.8-10.6) k/uL RBC (3.80-5.40) m/uL Hgb (11.4-16.0) gm/dL Hct (34.0-46.0) % MCV (80.0-100.0) fL MCH (25.0-35.0) pg MCHC (31.0-37.0) g/dL RDW (11.5-15.5) % Plt Count (150-450) k/uL MPV Neutrophils % % Lymphocytes % % Monocytes % % Eosinophils % % Basophils % % Neutrophils # (1.3-7.7) k/uL Lymphocytes # (1.0-4.8) k/uL Monocytes # (0-1.0) k/uL Eosinophils # (0-0.7) k/uL Basophils # (0-0.2) k/uL PT (9.0-12.0) sec INR (<1.2) APTT (22.0-30.0) sec Sodium (137-145) mmol/L Potassium (3.5-5.1) mmol/L Chloride (98-107) mmol/L Carbon Dioxide (22-30) mmol/L Anion Gap mmol/L BUN (7-17) mg/dL Creatinine (0.52-1.04) mg/dL Est GFR (CKD-EPI)AfAm (>60 ml/min/1.73 sqM) Est GFR (CKD-EPI)NonAf (>60 ml/min/1.73 sqM) Glucose (74-99) mg/dL Plasma Lactic Acid Lm 1.7 (0.7-2.0) mmol/L Calcium (8.4-10.2) mg/dL Total Bilirubin (0.2-1.3) mg/dL AST (14-36) U/L ALT (4-34) U/L Alkaline Phosphatase (38-126) U/L Total Protein (6.3-8.2) g/dL Albumin (3.5-5.0) g/dL Amylase (30-110) U/L Lipase (23-300) U/L - Radiology Data Radiology results: report reviewed (CT abdomen and pelvis shows left-sided kid collette stone), image reviewed Disposition Clinical Impression: Left ureteral stone, Abdominal pain Disposition: HOME SELF-CARE Condition: Good Instructions (If sedation given, give patient instructions): Kidney Stones (ED) Is patient prescribed a controlled substance at d/c from ED?: No Referrals: Wilbert Washington MD [Primary Care Provider] - 1-2 days
[2021-05-11 23:31] LABS: Basophils % (A) 0 %; Eosinophils # (A) 0.2 k/uL (0-0.7); Eosinophils % (A) 2 %; HCT 40.3 % (34.0-46.0); HGB 13.3 gm/dL (11.4-16.0); Lymphocytes % (A) 14 %; MCH 29.9 pg (25.0-35.0); MCV 90.7 fL (80.0-100.0); Monocytes # (A) 0.5 k/uL (0-1.0); Monocytes % (A) 3 %; Neutrophils # (A) 11.3 k/uL (1.3-7.7); Neutrophils % (A) 79 %; Platelet Count 222 k/uL (150-450); RBC 4.44 m/uL (3.80-5.40); RDW 13.6 % (11.5-15.5); WBC 14.3 k/uL (3.8-10.6)
[2021-05-11 23:41] LABS: INR 0.9 (<1.2); Partial Thromboplastin Time 23.9 sec (22.0-30.0); Prothrombin Time 10.1 sec (9.0-12.0)
[2021-05-12] LABS: Albumin 4.4 g/dL (3.5-5.0); Calcium 9.2 mg/dL (8.4-10.2); Potassium 3.7 mmol/L (3.5-5.1); Total Bilirubin 0.5 mg/dL (0.2-1.3); Total Protein 7.8 g/dL (6.3-8.2)
--- NOTE | 2021-05-12 00:52 | CT ---
EXAMINATION TYPE: CT abdomen pelvis w con DATE OF EXAM: 05/12/2021 COMPARISON: 09/18/2015 HISTORY: Abdominal pain CT DLP: mGycm Automated exposure control for dose reduction was used. CONTRAST: The contrast was Isovue 80 mL IV. There is mild subsegmental atelectasis at the lung bases. Heart size is normal. There is no pleural e ffusion. There is no pericardial effusion. There are clips from cholecystectomy. Liver and spleen are intact. The bile ducts are not dilated. Th ere is no pancreatic mass. There is no adrenal mass. Kidneys have normal size. There is left-sided hydronephrosis with obstructi ng 2 mm calculus at the left ureteral pelvic junction. There is 4 mm calculus posterior left kidney. There is a 3 mm calculus lower pole right kidney. There are multiple small bilateral renal cortical c ysts. There is no retroperitoneal adenopathy. Appendix is posterior and appears normal. Bladder diste nds smoothly. There is no inguinal hernia. There are a few sigmoid diverticula. There is no diverticu litis. Delayed images show delayed left-sided pyelogram. There is no mesenteric edema. There is no ascites or free air. There is no bowel obstruction. The lumbar vertebra have normal alignment. There is no compression fracture. Bony pelvis is intact. T he hip joints are intact. There is some subcutaneous density over the anterior abdomen that could be injection sites. IMPRESSION: Obstructing calculus at the left ureteropelvic junction appears new compared to old exam. Mild left-s ided hydronephrosis. Mild left-sided perinephric edema. Bilateral renal calculi. Calculi are new compared to old exam. Normal appendix.
[2021-05-12] MEDS ORDERED: IBUPROFEN 600 MG STARTER PACK 4 TAB BTL PO STA (01:02)
[2021-05-12] MEDS ORDERED: TAMSULOSIN 0.4 MG CAP.ER.24H PO STA (01:02)
[2021-05-12] MEDS ORDERED: ACET/COD 300 MG/30 MG STARTER PACK 6 TAB BTL PO STA (01:02)
[2021-05-12] MEDS ORDERED: MORPHINE SULFATE 4 MG/ML SYRINGE IVP STA (01:02)
[2021-05-12] MEDS ORDERED: ONDANSETRON 4 MG ODT STARTER PACK 2 TAB BTL PO STA (01:02)
[2021-05-12] MEDS ORDERED: KETOROLAC 15 MG/ML 1 ML VIAL IVP STA (01:02)
[2021-05-12] MEDS ORDERED: traMADol 50 MG STARTER PACK 3 TAB BTL PO STA (01:02)
[2021-05-12 05:57] VITALS: BP 142/87; PULSE 78; RESP 18; TEMP 98.9
== END 2021-05-12 01:39 | disposition home or self-care (01) ==
LOC: EC 22:00
DX: N20.1 Calculus of ureter (principal); E11.40 Type 2 diabetes mellitus with diabetic neuropathy, unspecified; E78.5 Hyperlipidemia, unspecified; G20 Parkinson's disease; F32.A Depression, unspecified; M19.90 Unspecified osteoarthritis, unspecified site; Z79.4 Long term (current) use of insulin; Z79.82 Long term (current) use of aspirin; Z79.890 Hormone replacement therapy; Z79.899 Other long term (current) drug therapy
CPT/HCPCS: 80053; 82150; 83605; 83690; 85025; 85610; 85730; 74177; 99284; 96374; 96375 ×5; 96376; 96361 ×2; J2270 ×2; J1200; J2930; J2405; J1885; S0119; Q9967

== ENCOUNTER 2021-07-08 15:17 | Inpatient (IN) | payer MEDICARE, BC ==
[2021-07-08] MEDS ORDERED: SODIUM CHLORIDE 0.9% 1,000 ML IV STA (15:54)
[2021-07-08] MEDS ORDERED: KETOROLAC 15 MG/ML 1 ML VIAL IVP STA (16:17)
[2021-07-08 16:18] LABS: Basophils # (A) 0.1 k/uL (0-0.2); Basophils % (A) 0 %; Eosinophils # (A) 0.1 k/uL (0-0.7); Eosinophils % (A) 0 %; HCT 44.6 % (34.0-46.0); HGB 14.9 gm/dL (11.4-16.0); Lymphocytes # (A) 1.9 k/uL (1.0-4.8); Lymphocytes % (A) 9 %; MCH 29.6 pg (25.0-35.0); MCHC 33.3 g/dL (31.0-37.0); MCV 88.8 fL (80.0-100.0); Monocytes # (A) 0.7 k/uL (0-1.0); Monocytes % (A) 3 %; Neutrophils # (A) 17.9 k/uL (1.3-7.7); Neutrophils % (A) 86 %; Platelet Count 303 k/uL (150-450); RBC 5.03 m/uL (3.80-5.40); RDW 13.3 % (11.5-15.5); WBC 20.8 k/uL (3.8-10.6)
--- NOTE | 2021-07-08 16:20 | ED ---
Abdominal Pain HPI - General Chief Complaint: Abdominal Pain Stated Complaint: Abd pain Time Seen by Provider: 07/08/21 15:53 Source: patient, family, RN notes reviewed Mode of arrival: wheelchair Limitations: no limitations - History of Present Illness Initial Comments: This is a pleasant 76-year-old female with a history of previous renal stones. She presents to department complaining of right flank pain which started yesterday. She also states that she had a fever of 100.9 yesterday. Some shaking chills. Positive urinary frequency. Pain radiates from the right back around the right flank area. No hematuria. Patient denies chest pain or shortness of breath. No headache, no fever or chills, no changes in vision or hearing, no sore throat or difficulty with speech, no neck pain, no chest pain or shortness of breath, no nausea or vomiting, no changes bowel movements, no numbness or tingling, no extremity pain, no skin rashes or lesions. MD Complaint: flank pain - Related Data Home Medications Medication Instructions Recorded Confirmed Escitalopram [Lexapro] 20 mg PO DAILY 09/18/15 07/08/21 Ezetimibe/Simvastatin [Vytorin 1 tab PO DAILY 09/18/15 07/08/21 10-20 mg Tablet] Carbidopa-Levodopa 25-100 mg 3 tab PO TID@0830,1230,1630 12/18/18 07/08/21 [Sinemet 25-100 mg] Insulin Detemir [Levemir Flextouch 30 units SQ BID 12/18/18 07/08/21 Pen] Vit C/E/Zn/Coppr/Lutein/Zeaxan 1 cap PO BID 12/18/18 07/08/21 [Preservision Areds 2 Softgel] Aspirin EC [Ecotrin Low Dose] 81 mg PO DAILY 06/01/20 07/08/21 Levothyroxine Sodium [Synthroid] 75 mcg PO DAILY 06/01/20 07/08/21 Ascorbic Acid [Vitamin C] 500 mg PO DAILY 05/11/21 07/08/21 Cholecalciferol [Vitamin D3 (25 50 mcg PO DAILY 05/11/21 07/08/21 Mcg = 1000 Iu)] Cyanocobalamin (Vitamin B-12) 2,500 mcg PO DAILY 05/11/21 07/08/21 [Vitamin B-12] Zinc 50 mg PO DAILY 05/11/21 07/08/21 Topiramate [Topamax] 200 mg PO BID 07/08/21 07/08/21 Allergies Allergy/AdvReac Type Severity Reaction Status Date / Time codeine Allergy Anaphylaxis Verified 07/08/21 18:36 meperidine HCl [From Demerol] Allergy Anaphylaxis Verified 07/08/21 18:36 Iodinated Contrast Media AdvReac Nausea & Verified 07/08/21 18:36 [Iodinated Contrast- Oral Vomiting and IV Dye] Review of Systems ROS Statement: Those systems with pertinent positive or pertinent negative responses have been documented in the HPI. ROS Other: All systems not noted in ROS Statement are negative. Past Medical History Past Medical History: Diabetes Mellitus, Eye Disorder, Hyperlipidemia, Musculoskeletal Disorder, Neurologic Disorder, Osteoarthritis (OA), Thyroid Disorder, Vascular Disorder Additional Past Medical History / Comment(s): IDDM type II, neuropathy L hand/L foot toes, parkinson's disease, small brain aneurysm, peptic ulcers, beginning of macular degeneration bilaterally, hypothyroid, frequent headaches, back pain/arthritis in back, IBS. History of Any Multi-Drug Resistant Organisms: None Reported Past Surgical History: Cholecystectomy, Hysterectomy Additional Past Surgical History / Comment(s): D&C, multiple surgeries for stabismus bilaterally, bilateral cataract removals/lens implants, colonoscopy. Past Anesthesia/Blood Transfusion Reactions: No Reported Reaction Past Psychological History: Depression Smoking Status: Former smoker Past Alcohol Use History: None Reported Past Drug Use History: None Reported - Past Family History Mother Family Medical History: Vascular Disorder Additional Family Medical History / Comment(s): brain aneurysm - at age 45 Father History Unknown: Yes Family Medical History: Coronary Artery Disease (CAD) Additional Family Medical History / Comment(s): Pt was not raised by biological father. General Exam Limitations: no limitations General appearance: alert, in distress Head exam: Present: atraumatic, normocephalic, normal inspection Eye exam: Present: normal appearance, PERRL, EOMI. Absent: scleral icterus, conjunctival injection, periorbital swelling ENT exam: Present: normal exam, normal oropharynx, mucous membranes moist Neck exam: Present: normal inspection, full ROM. Absent: tenderness, meningismus, lymphadenopathy Respiratory exam: Present: normal lung sounds bilaterally. Absent: respiratory distress, wheezes, rales, rhonchi, stridor Cardiovascular Exam: Present: regular rate, normal rhythm, normal heart sounds. Absent: systolic murmur, diastolic murmur, rubs, gallop, clicks GI/Abdominal exam: Present: soft, normal bowel sounds. Absent: distended, tenderness, guarding, rebound, rigid Extremities exam: Present: normal inspection, full ROM, normal capillary refill. Absent: tenderness, pedal edema, joint swelling, calf tenderness Back exam: Present: normal inspection, CVA tenderness (R). Absent: CVA tenderness (L), paraspinal tenderness, vertebral tenderness Neurological exam: Present: alert, oriented X3, CN II-XII intact Psychiatric exam: Present: normal affect, normal mood. Absent: anxious, flat affect Skin exam: Present: warm, dry, intact, normal color. Absent: rash Course Vital Signs 07/08/21 07/08/21 15:43 18:16 Temperature 98.5 F 98.8 F Pulse Rate 77 64 Respiratory 18 14 Rate Blood Pressure 109/68 129/72 O2 Sat by Pulse 95 95 Oximetry - Reevaluation(s) Reevaluation #1: 07/08/21 17:25 Medical record is reviewed Patient symptoms are improving. However, patient's troponin came back at 1.87. Patient had some nonspecific and nondiagnostic EKG changes which were discussed with the ED attending physician, Dr. Steen. After the troponin came back I did discuss case with Dr. Reaves the on-call broker in charge who agreed with heparinizing the patient and giving the patient aspirin. States he will consult on the patient. Patient also showed evidence of acute kidney injury. Patient is informed of results and questions answered Patient in no distress Reevaluation #2: 07/08/21 18:20 There is a right-sided kidney stone at the UVJ with significant hydronephrosis. 6.6 mm stone. - Consultations Consultation #1: Case discussed in detail with the broker in charge, the ED attending physician, the on-call urologist, and the hospitalist physician. Procedures - Sepsis Sepsis Focused Exam #1 Time Sepsis Criteria Met: 16:58 (Patient meets criteria for severe sepsis with a lactate of 2.3, positive white blood cell count and suspected source of infection.) Sepsis Focused Exam Complete: Yes Vital Signs & RN Notes Reviewed: Yes Capillary Refill: < 2 Seconds: Fingers, Toes Skin Color: Normal for Patient Respiratory Exam: normal lung sounds Cardiovascular Exam: regular rate Medical Decision Making - Medical Decision Making Given the patient's symptomology, ureteral stone is high in the differential. However possibility of septic stone or pyelonephritis is also possible. Patient really has no significant CVA tenderness and no real abdominal tenderness. I think other etiologies such as intra-abdominal infection, intra-abdominal abscess, diverticulitis much less likely. Presentation consistent with cardiopulmonary disease. Patient Meets criteria for severe sepsis since she had a fever at home of 100.9, leukocytosis, lactate is 2.3, and suspected infection. Obstructive uropathy secondary to a large right sided renal stone at the right UVJ with hydronephrosis. Patient also has evidence of a non-STEMI. Discussed the case with cardiology. Patient heparinized. Patient given aspirin. We'll discuss with urology and the admitting physician. Patient was also given 2 g of Rocephin IV piggyback here in the ER. The case was discussed in detail with ED attending physician. Presentation, findings, treatment plan discussed in detail. EKG findings discussed.Sup ervising physician is Dr. Steen - Lab Data Result diagrams: 07/08/21 15:59 07/08/21 15:59 Lab Results 07/08/21 07/08/21 07/08/21 Range/Units 15:59 15:59 15:59 WBC 20.8 H (3.8-10.6) k/uL RBC 5.03 (3.80-5.40) m/uL Hgb 14.9 (11.4-16.0) gm/dL Hct 44.6 (34.0-46.0) % MCV 88.8 (80.0-100.0) fL MCH 29.6 (25.0-35.0) pg MCHC 33.3 (31.0-37.0) g/dL RDW 13.3 (11.5-15.5) % Plt Count 303 (150-450) k/uL MPV 7.0 Neutrophils % 86 % Lymphocytes % 9 % Monocytes % 3 % Eosinophils % 0 % Basophils % 0 % Neutrophils # 17.9 H (1.3-7.7) k/uL Lymphocytes # 1.9 (1.0-4.8) k/uL Monocytes # 0.7 (0-1.0) k/uL Eosinophils # 0.1 (0-0.7) k/uL Basophils # 0.1 (0-0.2) k/uL PT (9.0-12.0) sec INR (<1.2) APTT (22.0-30.0) sec Sodium 139 (137-145) mmol/L Potassium 3.7 (3.5-5.1) mmol/L Chloride 105 (98-107) mmol/L Carbon Dioxide 18 L (22-30) mmol/L Anion Gap 16 mmol/L BUN 26 H (7-17) mg/dL Creatinine 1.73 H (0.52-1.04) mg/dL Est GFR (CKD-EPI)AfAm 33 (>60 ml/min/1.73 sqM) Est GFR (CKD-EPI)NonAf 29 (>60 ml/min/1.73 sqM) Glucose 195 H (74-99) mg/dL Plasma Lactic Acid Lm (0.7-2.0) mmol/L Calcium 9.4 (8.4-10.2) mg/dL Total Bilirubin 0.9 (0.2-1.3) mg/dL AST 30 (14-36) U/L ALT 7 (4-34) U/L Alkaline Phosphatase 133 H (38-126) U/L Troponin I (0.000-0.034) ng/mL Total Protein 8.2 (6.3-8.2) g/dL Albumin 4.5 (3.5-5.0) g/dL Amylase 51 (30-110) U/L Lipase 65 (23-300) U/L Urine Color Yellow Urine Appearance Clear (Clear) Urine pH 5.5 (5.0-8.0) Ur Specific Biddle 1.028 (1.001-1.035) Urine Protein 1+ H (Negative) Urine Glucose (UA) Negative (Negative) Urine Ketones 1+ H (Negative) Urine Blood Moderate H (Negative) Urine Nitrite Negative (Negative) Urine Bilirubin Negative (Negative) Urine Urobilinogen 2.0 (<2.0) mg/dL Ur Leukocyte Esterase Trace H (Negative) Urine RBC 86 H (0-5) /hpf Urine WBC 6 H (0-5) /hpf Ur Squamous Epith Cells 2 (0-4) /hpf Urine Mucus Few H (None) /hpf 07/08/21 07/08/21 07/08/21 Range/Units 15:59 15:59 17:57 WBC (3.8-10.6) k/uL RBC (3.80-5.40) m/uL Hgb (11.4-16.0) gm/dL Hct (34.0-46.0) % MCV (80.0-100.0) fL MCH (25.0-35.0) pg MCHC (31.0-37.0) g/dL RDW (11.5-15.5) % Plt Count (150-450) k/uL MPV Neutrophils % % Lymphocytes % % Monocytes % % Eosinophils % % Basophils % % Neutrophils # (1.3-7.7) k/uL Lymphocytes # (1.0-4.8) k/uL Monocytes # (0-1.0) k/uL Eosinophils # (0-0.7) k/uL Basophils # (0-0.2) k/uL PT 9.9 (9.0-12.0) sec INR 0.9 (<1.2) APTT 22.3 (22.0-30.0) sec Sodium (137-145) mmol/L Potassium (3.5-5.1) mmol/L Chloride (98-107) mmol/L Carbon Dioxide (22-30) mmol/L Anion Gap mmol/L BUN (7-17) mg/dL Creatinine (0.52-1.04) mg/dL Est GFR (CKD-EPI)AfAm (>60 ml/min/1.73 sqM) Est GFR (CKD-EPI)NonAf (>60 ml/min/1.73 sqM) Glucose (74-99) mg/dL Plasma Lactic Acid Lm 2.3 H* (0.7-2.0) mmol/L Calcium (8.4-10.2) mg/dL Total Bilirubin (0.2-1.3) mg/dL AST (14-36) U/L ALT (4-34) U/L Alkaline Phosphatase (38-126) U/L Troponin I 1.870 H* (0.000-0.034) ng/mL Total Protein (6.3-8.2) g/dL Albumin (3.5-5.0) g/dL Amylase (30-110) U/L Lipase (23-300) U/L Urine Color Urine Appearance (Clear) Urine pH (5.0-8.0) Ur Specific Biddle (1.001-1.035) Urine Protein (Negative) Urine Glucose (UA) (Negative) Urine Ketones (Negative) Urine Blood (Negative) Urine Nitrite (Negative) Urine Bilirubin (Negative) Urine Urobilinogen (<2.0) mg/dL Ur Leukocyte Esterase (Negative) Urine RBC (0-5) /hpf Urine WBC (0-5) /hpf Ur Squamous Epith Cells (0-4) /hpf Urine Mucus (None) /hpf - EKG Data EKG Comments: EKG done at 1617 and read by the ED attending physician reveals sinus rhythm with a rate of 70. Normal intervals. Computers interpretation culling inferior myocardial infarction, probably recent with changes in lead 2 and aVF. Patient does have nonspecific changes noted by me. Left axis deviation. Poor R-wave progression. When compared to the previous study from 01 June but does not appear to be any significant change other than the nonspecific findings and lead 2 and aVF. Critical Care Time Critical Care Time: Yes (Sepsis, reevaluation of the patient's condition. Evaluating patient's resp) Total Critical Care Time: 45 Critical Care Time: Obstructive uropathy with secondary infection, severe sepsis, non-STEMI Disposition Clinical Impression: Urinary tract infection, Ureterolithiasis, Non-STEMI (non-ST elevated myocardial infarction), Hydronephrosis, right, Obstructive uropathy, Severe sepsis Disposition: ADMITTED IP TO THIS HOSP Condition: Stable Referrals: Wilbert Washington MD [Primary Care Provider] - 1-2 days Time of Disposition: 18:19
[2021-07-08 16:22] LABS: Appearance,Urine Clear (Clear); Bilirubin,Urine Negative (Negative); Blood,Urine Moderate (Negative); Color,Urine Yellow; Glucose,Urine (UA) Negative (Negative); Ketones,Urine 1+ (Negative); Leukocyte Esterase,Urine Trace (Negative); Mucus,Urine Few /hpf; Nitrite,Urine Negative (Negative); PH, Urine 5.5 (5.0-8.0); Protein,Urine 1+ (Negative); RBC,Urine 86 /hpf (0-5); Specific Gravity,Urine 1.028 (1.001-1.035); Squamous Epithelial Cell,Urine 2 /hpf (0-4); WBC,Urine 6 /hpf (0-5)
[2021-07-08] MEDS ORDERED: SODIUM CHLORIDE 0.9% 500 ML 500 ML IV STA (16:30)
--- NOTE | 2021-07-08 16:38 | XR ---
EXAMINATION TYPE: XR chest 1V DATE OF EXAM: 07/08/2021 COMPARISON: 06/01/2020 HISTORY: Abdominal pain TECHNIQUE: Single frontal view of the chest is obtained. FINDINGS: There is no focal air space opacity, pleural effusion, or pneumothorax seen. The cardiac silhouette size is within normal limits. The osseous structures are intact. IMPRESSION: No acute process.
[2021-07-08 16:49] LABS: Albumin 4.5 g/dL (3.5-5.0); Calcium 9.4 mg/dL (8.4-10.2); Potassium 3.7 mmol/L (3.5-5.1); Total Bilirubin 0.9 mg/dL (0.2-1.3); Total Protein 8.2 g/dL (6.3-8.2)
[2021-07-08] MEDS ORDERED: ASPIRIN 81 MG PO STA (17:24)
[2021-07-08] MEDS ORDERED: HEPARIN SODIUM 1,000 UN/ML (10ML VL) IV ONE (17:25)
[2021-07-08] MEDS ORDERED: HEPARIN SODIUM 1,000 UN/ML (10ML VL) IV PRN (17:25)
--- NOTE | 2021-07-08 17:48 | CT ---
EXAMINATION TYPE: CT abdomen pelvis wo con DATE OF EXAM: 07/08/2021 COMPARISON: 05/12/2021 HISTORY: Right flank pain. CT DLP: 403.6 mGycm Automated exposure control for dose reduction was used. TECHNIQUE: Helical acquisition of images was performed from the lung bases through the pelvis. FINDINGS: The lung bases are clear. There is surgical absence of the gallbladder. There is no biliary ductal dilatation. There is no orga nomegaly involving the liver, pancreas, spleen or adrenal glands. There is marked right-sided hydronephrosis and hydroureter secondary to a 6.6 mm right UVJ calculus. In addition, there is a 3.5 mm calcification in one of the right renal calyces. There are no left renal calcifications or hydronephrosis. There is no retroperitoneal adenopathy or hemorrhage in the caliber of the abdominal aorta is normal. The bowel loops are normal in caliber and there is no dilatation or obstruction. No inflammatory fajardo ges are identified in the mesentery. There is no free intraperitoneal air or fluid. There is no pelvic mass or adenopathy. There are surgical absence of uterus. No focal osseous abnormalities are seen. IMPRESSION: Marked right hydronephrosis and hydroureter secondary to a 6.6 obstructing calculus in the right UVJ.
[2021-07-08] MEDS: HEPARIN SOD,PORK IN 0.45% NACL 25,000 UNIT in 0.45% NACL 1 250ML.BAG IV SCH (18:01)
[2021-07-08 18:23] LABS: INR 0.9 (<1.2); Partial Thromboplastin Time 22.3 sec (22.0-30.0); Prothrombin Time 9.9 sec (9.0-12.0)
[2021-07-08] MEDS ORDERED: NITROGLYCERIN SL TABS 0.4 MG TAB SUBLINGUAL PRN (18:35)
[2021-07-08] MEDS: SODIUM CHLORIDE 0.9% 1,000 ML IV SCH ×2 (21:07→23:52)
[2021-07-08 22:41] LABS: Glucose,Whole Blood 144 mg/dL (75-99)
[2021-07-08] MEDS: INSULIN ASPART (NovoLOG) 100 UNIT/ML VIAL SQ SCH (23:03)
[2021-07-09] MEDS: ACETAMINOPHEN TAB 325 MG TAB PO PRN ×3 (00:28→23:42)
[2021-07-09 06:30] LABS: Glucose,Whole Blood 115 mg/dL (75-99)
[2021-07-09] MEDS: INSULIN ASPART (NovoLOG) 100 UNIT/ML VIAL SQ SCH ×4 (06:31→20:12)
[2021-07-09 08:50] LABS: INR 0.9 (<1.2); Prothrombin Time 10.1 sec (9.0-12.0)
[2021-07-09 08:53] LABS: Basophils % (A) 0 %; Eosinophils # (A) 0.2 k/uL (0-0.7); Eosinophils % (A) 2 %; HCT 35.3 % (34.0-46.0); Lymphocytes % (A) 23 %; MCH 30.2 pg (25.0-35.0); MCHC 33.1 g/dL (31.0-37.0); MCV 91.2 fL (80.0-100.0); Mean Platelet Volume 7.1; Monocytes # (A) 0.4 k/uL (0-1.0); Monocytes % (A) 5 %; Neutrophils # (A) 5.9 k/uL (1.3-7.7); Neutrophils % (A) 67 %; Platelet Count 214 k/uL (150-450); RBC 3.87 m/uL (3.80-5.40); RDW 13.2 % (11.5-15.5); WBC 8.8 k/uL (3.8-10.6)
[2021-07-09 09:00] LABS: HGB 11.7 gm/dL (11.4-16.0)
[2021-07-09] MEDS ORDERED: ATORVASTATIN 10 MG TAB PO SCH (09:00)
[2021-07-09] MEDS ORDERED: ASPIRIN 325 MG TAB PO SCH (09:00)
[2021-07-09] MEDS: EZETIMIBE 10 MG TAB PO SCH (09:04)
[2021-07-09] MEDS: ASPIRIN 81 MG PO SCH (09:04)
[2021-07-09] MEDS: METOPROLOL TARTRATE 12.5 MG TAB PO SCH ×2 (09:04→20:20)
[2021-07-09 09:22] LABS: ALT <6 U/L (4-34); AST 20 U/L (14-36); African American GFR (CKD) 25 (>60 ml/min/1.73 sqM); Alkaline Phosphatase 88 U/L (38-126); Anion Gap 10 mmol/L; Blood Urea Nitrogen 27 mg/dL (7-17); Carbon Dioxide 18 mmol/L (22-30); Chloride 114 mmol/L (98-107); Glucose 119 mg/dL (74-99); Non-African American GFR(CKD) 22 (>60 ml/min/1.73 sqM); Potassium 3.7 mmol/L (3.5-5.1); Sodium 142 mmol/L (137-145); Total Bilirubin 0.5 mg/dL (0.2-1.3); Total Protein 5.9 g/dL (6.3-8.2)
--- NOTE | 2021-07-09 11:01 | P.CRDCN ---
"History of Present Illness History of present illness: HISTORY OF PRESENTING ILLNESS This is a pleasant 76-year-old female past medical history significant for mild nonobstructive coronary artery disease, type 2 diabetes, hypertension, dyslipidemia, former smoker, nephrolithiasis. She follows in the office with Dr. Hobson. We have been asked to see in consultation for elevated troponin. Patient presents emergency department with worsening bilateral flank pain and upper back pain. She states her flank pain started 2 days ago and she also had a fever of 100.9 at home. She also had symptoms of chills, urinary frequency. She denies any chest pain, palpitations, shortness of breath, light headedness, dizziness, syncope or near-syncope. She denies any nausea, vomiting, symptoms of orthopnea or PND. On admission she was found to have acute kidney injury. DIAGNOSTICS EKG reveals sinus rhythm, heart rate 70, STT wave abnormalities in the inferior leads, slow R wave progression. No acute ischemia present. Prior EKG in 05/[address] abdomen and pelvis revealed marked right hydronephrosis and hydroureter secondary to a 6.6 obstructing calculus in the right UVJ Last Cardiac Catheterization 2018 revealed 25% mid LAD stenosis, 20% mid RCA to stenosis, right dominant Chest xray no acute cardiopulmonary process Most recent echo in the office 08/2020 revealed EF of 5560 percent, mild mitral regurgitation, mild tricuspid regurgitation Laboratory reviewed, troponin 1.8, 2.0, 1.5, sodium 142, potassium 3.7, BUN 27, serum creatinine 2.1, WBC 20.8 repeat 8.8, hemoglobin 14.9, platelets 303 Current home medications include aspirin 81 mg daily, Sinemet, vitamin D, vitamin B, Lexapro, Vytorin, Synthroid, Topamax REVIEW OF SYSTEMS At the time of my exam: CONSTITUTIONAL: Denies fever or chills. CARDIOVASCULAR: Denies chest pain, shortness of breath, orthopnea, PND or palpitations. RESPIRATORY: Denies cough. GASTROINTESTINAL: Denies abdominal pain, diarrhea, constipation, nausea or vomiting. MUSCULOSKELETAL: +back pain +flank pain NEUROLOGIC: Denies numbness, tingling, headache or weakness. ENDOCRINE: Denies fatigue, weight change, polydipsia or polyurina. GENITOURINARY: +urgency |+flank pain Denies burning, hematuria or urgency with micturation. HEMATOLOGIC: Denies history of anemia or bleeding. PHYSICAL EXAMINATION Blood pressure 122/65, heart 61, afebrile, saturations 97% room air CONSTITUTIONAL: No apparent distress. HEENT: Head is normocephalic. Pupils are equal, round. Sclerae anicteric. Mucous membranes of the mouth are moist. No JVD. No carotid bruit. CHEST EXAMINATION: Lungs are clear to auscultation. No chest wall tenderness is noted on palpation or with deep breathing. HEART EXAMINATION: Regular rate and rhythm. S1, S2 heard. No murmurs, gallops or rub. ABDOMEN: Soft, nontender. Positive bowel sounds. EXTREMITIES: 2+ peripheral pulses, no lower extremity edema and no calf te nderness. SKIN: warm, dry NEUROLOGIC EXAMINATION: Patient is awake, alert and oriented x3. ASSESSMENT Elevated troponin, likely related to acute kidney injury, patient without any chest pain or new EKG abnormalities to suggest ischemia Acute kidney injury Right hydronephrosis seen on CT Nephrolithiasis Mild nonobstructive coronary artery disease Type 2 diabetes Hypertension Dyslipidemia Former smoker PLAN Obtain 2D echocardiogram and doppler study to assess cardiac structure and function. Continue aspirin, statin, Zetia Metoprolol tartrate 12.5mg BID Urology consult If echocardiogram with no acute findings, we will discontinue heparin drip Further recommendations based on clinical course Thank you kindly for this consultation. Nurse practitioner note has been reviewed by physician. Signing provider agrees with the documented findings, assessment, and plan of care. Past Medical History Past Medical History: Diabetes Mellitus, Eye Disorder, Hyperlipidemia, Musculoskeletal Disorder, Neurologic Disorder, Thyroid Disorder, Vascular Dis order Additional Past Medical History / Comment(s): IDDM type II, neuropathy L hand/L foot toes, parkinson's disease, essential termmors, small brain aneurysm, peptic ulcers, beginning of macular degeneration bilaterally, hypothyroid, frequent headaches, back pain/arthritis in back, IBS. History of Any Multi-Drug Resistant Organisms: None Reported Past Surgical History: Cholecystectomy, Hysterectomy Additional Past Surgical History / Comment(s): D&C, multiple surgeries for stabismus bilaterally, bilateral cataract removals/lens implants, colonoscopy. Carpul tunnel left wrist and elbow. Past Anesthesia/Blood Transfusion Reactions: No Reported Reaction Past Psychological History: Depression Additional Psychological History / Comment(s): Pt resides with her spouse. She uses no assistive device. She no longer drives, spouse drives. Smoking Status: Former smoker Past Alcohol Use History: None Reported Additional Past Alcohol Use History / Comment(s): Pt started smoking in 1971 and quit in 1991. Past Drug Use History: None Reported - Past Family History Mother Family Medical History: Vascular Disorder Additional Family Medical History / Comment(s): brain aneurysm - at age 45 Father History Unknown: Yes Family Medical History: Coronary Artery Disease (CAD) Additional Family Medical History / Comment(s): Pt was not raised by biological father. Medications and Allergies Home Medications Medication Instructions Recorded Confirmed Type Escitalopram [Lexapro] 20 mg PO DAILY 09/18/15 07/08/21 History Ezetimibe/Simvastatin [Vytorin 1 tab PO DAILY 09/18/15 07/08/21 History 10-20 mg Tablet] Carbidopa-Levodopa 25-100 mg 3 tab PO TID@0830,1230,1630 12/18/18 07/08/21 History [Sinemet 25-100 mg] Insulin Detemir [Levemir Flextouch 30 units SQ BID 12/18/18 07/08/21 History Pen] Vit C/E/Zn/Coppr/Lutein/Zeaxan 1 cap PO BID 12/18/18 07/08/21 History [Preservision Areds 2 Softgel] Aspirin EC [Ecotrin Low Dose] 81 mg PO DAILY 06/01/20 07/08/21 History Levothyroxine Sodium [Synthroid] 75 mcg PO DAILY 06/01/20 07/08/21 History Ascorbic Acid [Vitamin C] 500 mg PO DAILY 05/11/21 07/08/21 History Cholecalciferol [Vitamin D3 (25 50 mcg PO DAILY 05/11/21 07/08/21 History Mcg = 1000 Iu)] Cyanocobalamin (Vitamin B-12) 2,500 mcg PO DAILY 05/11/21 07/08/21 History [Vitamin B-12] Zinc 50 mg PO DAILY 05/11/21 07/08/21 History Topiramate [Topamax] 200 mg PO BID 07/08/21 07/08/21 History Allergies Allergy/AdvReac Type Severity Reaction Status Date / Time codeine Allergy Anaphylaxis Verified 07/08/21 18:36 meperidine HCl [From Demerol] Allergy Anaphylaxis Verified 07/08/21 18:36 Iodinated Contrast Media AdvReac Nausea & Verified 07/08/21 18:36 [Iodinated Contrast- Oral Vomiting and IV Dye] Physical Exam Vitals: Vital Signs Temp Pulse Pulse Resp BP BP Pulse Ox 07/09/21 03:50 97.9 F 67 16 117/60 99 07/09/21 00:00 98.5 F 74 18 112/66 97 07/08/21 20:54 97.9 F 67 12 109/64 97 07/08/21 18:16 98.8 F 64 14 129/72 95 07/08/21 15:43 98.5 F 77 18 109/68 95 Intake and Output 07/08/21 07/09/21 07/09/21 22:59 06:59 14:59 Intake Total 240 Output Total 100 Balance 240 -100 Intake: Oral 240 Output: Urine 100 Other: Voiding Method Toilet Toilet # Voids 1 1 Weight 61.689 kg Results 07/09/21 07:40 07/09/21 07:40 Cardiac Enzymes 07/08/21 07/08/21 07/08/21 Range/Units 15:59 15:59 19:20 AST 30 (14-36) U/L Troponin I 1.870 H* 2.000 H* (0.000-0.034) ng/mL 07/08/21 Range/Units 23:09 AST (14-36) U/L Troponin I 1.570 H* (0.000-0.034) ng/mL Coagulation 07/08/21 07/08/21 Range/Units 17:57 23:09 PT 9.9 (9.0-12.0) sec APTT 22.3 44.0 H (22.0-30.0) sec CBC 07/08/21 Range/Units 15:59 WBC 20.8 H (3.8-10.6) k/uL RBC 5.03 (3.80-5.40) m/uL Hgb 14.9 (11.4-16.0) gm/dL Hct 44.6 (34.0-46.0) % Plt Count 303 (150-450) k/uL Comprehensive Metabolic Panel 07/08/21 Range/Units 15:59 Sodium 139 (137-145) mmol/L Potassium 3.7 (3.5-5.1) mmol/L Chloride 105 (98-107) mmol/L Carbon Dioxide 18 L (22-30) mmol/L BUN 26 H (7-17) mg/dL Creatinine 1.73 H (0.52-1.04) mg/dL Glucose 195 H (74-99) mg/dL Calcium 9.4 (8.4-10.2) mg/dL AST 30 (14-36) U/L ALT 7 (4-34) U/L Alkaline Phosphatase 133 H (38-126) U/L Total Protein 8.2 (6.3-8.2) g/dL Albumin 4.5 (3.5-5.0) g/dL Current Medications Generic Name Dose Route Start Last Admin Trade Name Freq PRN Reason Stop Dose Admin Acetaminophen 650 mg 07/08/21 18:35 07/09/21 00:28 Acetaminophen Tab 325 Mg Tab PO 650 mg Q4HR PRN Administration Pain Aspirin 81 mg 07/09/21 09:00 Aspirin 325 Mg Tab PO DAILY [facility] Heparin Sodium (Porcine) 0 unit 07/08/21 17:25 Heparin Sodium 1,000 Un/Ml (10ml Vl) IV PER PROTOCOL PRN Low PTT Protocol Heparin Sodium/Sodium Chloride 250 mls @ 7.403 mls/hr 07/08/21 17:30 07/08/21 18:01 25,000 unit/ Sodium Chloride IV 12 units/kg/hr .Q24H NEMO 7.403 mls/hr Administration Protocol 12 UNITS/KG/HR Sodium Chloride 1,000 mls @ 130 mls/hr 07/08/21 18:45 07/08/21 23:52 Saline 0.9% IV Not Given .Q7H42M [facility] Insulin Aspart 0 unit 07/08/21 22:36 07/09/21 06:31 Insulin Aspart (Novolog) 100 Unit/Ml Vial SQ Not Given ACHS [facility] Protocol Metoprolol Tartrate 12.5 mg 07/09/21 09:00 Metoprolol Tartrate 12.5 Mg Tab PO BID [facility] Nitroglycerin 0.4 mg 07/08/21 18:35 Nitroglycerin Sl Tabs 0.4 Mg Tab SUBLINGUAL Q5M PRN Chest Pain Non-Formulary Medication 1 tab 07/09/21 09:00 Ezetimibe/Simvastatin [Vytorin 10-20 Mg Tablet] PO DAILY [facility] Intake and Output 07/08/21 07/09/21 07/09/21 22:59 06:59 14:59 Intake Total 240 Output Total 100 Balance 240 -100 Intake: Oral 240 Output: Urine 100 Other: Voiding Method Toilet Toilet # Voids 1 1 Weight 61.689 kg 07/08/21 15:59 07/08/21 15:59"
[2021-07-09 11:36] LABS: Glucose,Whole Blood 136 mg/dL (75-99)
[2021-07-09] MEDS: ESCITALOPRAM 20 MG TAB PO SCH (11:51)
[2021-07-09] MEDS: CYANOCOBALAMIN 500 MCG TAB PO SCH (11:51)
[2021-07-09] MEDS: TOPIRAMATE 100 MG TAB PO SCH ×2 (11:52→20:20)
[2021-07-09] MEDS: LEVOTHYROXINE 75 MCG TAB PO SCH (11:52)
--- NOTE | 2021-07-09 12:39 | P.GSCN ---
History of Present Illness Consult date: 07/09/21 Reason for Consult: Right ureteral stone History of present illness: This is a 76-year-old female that presented to the hospital a 6 mm right-sided distal stone, and a low-grade fever. Her symptoms was associated with urinary frequency. Denies any dysuria or gross hematuria. does have hx of kidney stone which he passed spontaneously. This morning on evaluation she indicated her flank pain has resolved, and otherwise she is asymptomatic. Of note on presentation her lab work showed elevation of troponins, thus a cardiology consult was placed. Creatinine was elevated at 2.1 from a baseline of 1, her urinalysis was negative on presentation. She her vital signs were stable patient has remained afebrile. Review of Systems - Constitutional Denies fever, Denies weight loss - EENT Ears, nose, mouth and throat: Denies dysphagia - Cardiovascular Denies chest pain, Denies shortness of breath - Respiratory Denies cough, Denies 7 - Gastrointestinal Reports abdominal pain, Denies nausea, Denies vomiting - Genitourinary Genitourinary: Reports flank pain, Reports urinary frequency - Integumentary Denies rash, Denies unusual bruising - Neurological Denies headaches, Denies syncope Past Medical History Past Medical History: Diabetes Mellitus, Eye Disorder, Hyperlipidemia, Musculoskeletal Disorder, Neurologic Disorder, Thyroid Disorder, Vascular Disorder Additional Past Medical History / Comment(s): IDDM type II, neuropathy L hand/L foot toes, parkinson's disease, essential termmors, small brain aneurysm, peptic ulcers, beginning of macular degeneration bilaterally, hypothyroid, frequent headaches, back pain/arthritis in back, IBS. History of Any Multi-Drug Resistant Organisms: None Reported Past Surgical History: Cholecystectomy, Hysterectomy Additional Past Surgical History / Comment(s): D&C, multiple surgeries for sta bismus bilaterally, bilateral cataract removals/lens implants, colonoscopy. Carpul tunnel left wrist and elbow. Past Anesthesia/Blood Transfusion Reactions: No Reported Reaction Past Psychological History: Depression Additional Psychological History / Comment(s): Pt resides with her spouse. She uses no assistive device. She no longer drives, spouse drives. Smoking Status: Former smoker Past Alcohol Use History: None Reported Additional Past Alcohol Use History / Comment(s): Pt started smoking in 1971 and quit in 1991. Past Drug Use History: None Reported - Past Family History Mother Family Medical History: Vascular Disorder Additional Family Medical History / Comment(s): brain aneurysm - at age 45 Father History Unknown: Yes Family Medical History: Coronary Artery Disease (CAD) Additional Family Medical History / Comment(s): Pt was not raised by biological father. Medications and Allergies Home Medications Medication Instructions Recorded Confirmed Type Escitalopram [Lexapro] 20 mg PO DAILY 09/18/15 07/08/21 History Ezetimibe/Simvastatin [Vytorin 1 tab PO DAILY 09/18/15 07/08/21 History 10-20 mg Tablet] Carbidopa-Levodopa 25-100 mg 3 tab PO TID@0830,1230,1630 12/18/18 07/08/21 H istory [Sinemet 25-100 mg] Insulin Detemir [Levemir Flextouch 30 units SQ BID 12/18/18 07/08/21 History Pen] Vit C/E/Zn/Coppr/Lutein/Zeaxan 1 cap PO BID 12/18/18 07/08/21 History [Preservision Areds 2 Softgel] Aspirin EC [Ecotrin Low Dose] 81 mg PO DAILY 06/01/20 07/08/21 History Levothyroxine Sodium [Synthroid] 75 mcg PO DAILY 06/01/20 07/08/21 History Ascorbic Acid [Vitamin C] 500 mg PO DAILY 05/11/21 07/08/21 History Cholecalciferol [Vitamin D3 (25 50 mcg PO DAILY 05/11/21 07/08/21 History Mcg = 1000 Iu)] Cyanocobalamin (Vitamin B-12) 2,500 mcg PO DAILY 05/11/21 07/08/21 History [Vitamin B-12] Zinc 50 mg PO DAILY 05/11/21 07/08/21 History Topiramate [Topamax] 200 mg PO BID 07/08/21 07/08/21 History Allergies Allergy/AdvReac Type Severity Reaction Status Date / Time codeine Allergy Anaphylaxis Verified 07/08/21 18:36 meperidine HCl [From Demerol] Allergy Anaphylaxis Verified 07/08/21 18:36 Iodinated Contrast Media AdvReac Nausea & Verified 07/08/21 18:36 [Iodinated Contrast- Oral Vomiting and IV Dye] Surgical - Exam Vital Signs Temp Pulse Resp BP Pulse Ox 98.5 F 77 18 109/68 95 07/08/21 15:43 07/08/21 15:43 07/08/21 15:43 07/08/21 15:43 07/08/21 15:43 - General no distress, no pain - Eyes normal ocular movement, no pale - ENT normal nares, normal mucosa - Respiratory normal expansion, normal respiratory effort - Abdomen Abdomen: soft, non tender - Psychiatric oriented to time, oriented to person, oriented to place Results - Labs 07/09/21 07:40 07/09/21 07:40 Abnormal Lab Results - Last 24 Hours (Table) 07/08/21 07/08/21 07/08/21 Range/Units 15:59 15:59 15:59 WBC 20.8 H (3.8-10.6) k/uL Neutrophils # 17.9 H (1.3-7.7) k/uL APTT (22.0-30.0) sec Chloride (98-107) mmol/L Carbon Dioxide 18 L (22-30) mmol/L BUN 26 H (7-17) mg/dL Creatinine 1.73 H (0.52-1.04) mg/dL Glucose 195 H (74-99) mg/dL POC Glucose (mg/dL) (75-99) mg/dL Plasma Lactic Acid Lm (0.7-2.0) mmol/L Calcium (8.4-10.2) mg/dL Alkaline Phosphatase 133 H (38-126) U/L Troponin I (0.000-0.034) ng/mL Total Protein (6.3-8.2) g/dL Albumin (3.5-5.0) g/dL Urine Protein 1+ H (Negative) Urine Ketones 1+ H (Negative) Urine Blood Moderate H (Negative) Ur Leukocyte Esterase Trace H (Negative) Urine RBC 86 H (0-5) /hpf Urine WBC 6 H (0-5) /hpf Urine Mucus Few H (None) /hpf 07/08/21 07/08/21 07/08/21 Range/Units 15:59 15:59 19:20 WBC (3.8-10.6) k/uL Neutrophils # (1.3-7.7) k/uL APTT (22.0-30.0) sec Chloride (98-107) mmol/L Carbon Dioxide (22-30) mmol/L BUN (7-17) mg/dL Creatinine (0.52-1.04) mg/dL Glucose (74-99) mg/dL POC Glucose (mg/dL) (75-99) mg/dL Plasma Lactic Acid Lm 2.3 H* (0.7-2.0) mmol/L Calcium (8.4-10.2) mg/dL Alkaline Phosphatase (38-126) U/L Troponin I 1.870 H* 2.000 H* (0.000-0.034) ng/mL Total Protein (6.3-8.2) g/dL Albumin (3.5-5.0) g/dL Urine Protein (Negative) Urine Ketones (Negative) Urine Blood (Negative) Ur Leukocyte Esterase (Negative) Urine RBC (0-5) /hpf Urine WBC (0-5) /hpf Urine Mucus (None) /hpf 07/08/21 07/08/21 07/08/21 Range/Units 22:38 23:09 23:09 WBC (3.8-10.6) k/uL Neutrophils # (1.3-7.7) k/uL APTT 44.0 H (22.0-30.0) sec Chloride (98-107) mmol/L Carbon Dioxide (22-30) mmol/L BUN (7-17) mg/dL Creatinine (0.52-1.04) mg/dL Glucose (74-99) mg/dL POC Glucose (mg/dL) 144 H (75-99) mg/dL Plasma Lactic Acid Lm (0.7-2.0) mmol/L Calcium (8.4-10.2) mg/dL Alkaline Phosphatase (38-126) U/L Troponin I 1.570 H* (0.000-0.034) ng/mL Total Protein (6.3-8.2) g/dL Albumin (3.5-5.0) g/dL Urine Protein (Negative) Urine Ketones (Negative) Urine Blood (Negative) Ur Leukocyte Esterase (Negative) Urine RBC (0-5) /hpf Urine WBC (0-5) /hpf Urine Mucus (None) /hpf 07/09/21 07/09/21 07/09/21 Range/Units 06:09 07:40 07:40 WBC (3.8-10.6) k/uL Neutrophils # (1.3-7.7) k/uL APTT 38.0 H (22.0-30.0) sec Chloride 114 H (98-107) mmol/L Carbon Dioxide 18 L (22-30) mmol/L BUN 27 H (7-17) mg/dL Creatinine 2.16 H (0.52-1.04) mg/dL Glucose 119 H (74-99) mg/dL POC Glucose (mg/dL) 115 H (75-99) mg/dL Plasma Lactic Acid Lm (0.7-2.0) mmol/L Calcium 8.0 L (8.4-10.2) mg/dL Alkaline Phosphatase (38-126) U/L Troponin I (0.000-0.034) ng/mL Total Protein 5.9 L (6.3-8.2) g/dL Albumin 3.0 L (3.5-5.0) g/dL Urine Protein (Negative) Urine Ketones (Negative) Urine Blood (Negative) Ur Leukocyte Esterase (Negative) Urine RBC (0-5) /hpf Urine WBC (0-5) /hpf Urine Mucus (None) /hpf 07/09/21 Range/Units 11:34 WBC (3.8-10.6) k/uL Neutrophils # (1.3-7.7) k/uL APTT (22.0-30.0) sec Chloride (98-107) mmol/L Carbon Dioxide (22-30) mmol/L BUN (7-17) mg/dL Creatinine (0.52-1.04) mg/dL Glucose (74-99) mg/dL POC Glucose (mg/dL) 136 H (75-99) mg/dL Plasma Lactic Acid Lm (0.7-2.0) mmol/L Calcium (8.4-10.2) mg/dL Alkaline Phosphatase (38-126) U/L Troponin I (0.000-0.034) ng/mL Total Protein (6.3-8.2) g/dL Albumin (3.5-5.0) g/dL Urine Protein (Negative) Urine Ketones (Negative) Urine Blood (Negative) Ur Leukocyte Esterase (Negative) Urine RBC (0-5) /hpf Urine WBC (0-5) /hpf Urine Mucus (None) /hpf Diabetes panel 07/08/21 07/09/21 Range/Units 15:59 07:40 Sodium 139 142 (137-145) mmol/L Potassium 3.7 3.7 (3.5-5.1) mmol/L Chloride 105 114 H (98-107) mmol/L Carbon Dioxide 18 L 18 L (22-30) mmol/L BUN 26 H 27 H (7-17) mg/dL Creatinine 1.73 H 2.16 H (0.52-1.04) mg/dL Glucose 195 H 119 H (74-99) mg/dL Calcium 9.4 8.0 L (8.4-10.2) mg/dL AST 30 20 (14-36) U/L ALT 7 <6 (4-34) U/L Alkaline Phosphatase 133 H 88 (38-126) U/L Total Protein 8.2 5.9 L (6.3-8.2) g/dL Albumin 4.5 3.0 L (3.5-5.0) g/dL Calcium panel 07/08/21 07/09/21 Range/Units 15:59 07:40 Calcium 9.4 8.0 L (8.4-10.2) mg/dL Albumin 4.5 3.0 L (3.5-5.0) g/dL Pituitary panel 07/08/21 07/09/21 Range/Units 15:59 07:40 Sodium 139 142 (137-145) mmol/L Potassium 3.7 3.7 (3.5-5.1) mmol/L Chloride 105 114 H (98-107) mmol/L Carbon Dioxide 18 L 18 L (22-30) mmol/L BUN 26 H 27 H (7-17) mg/dL Creatinine 1.73 H 2.16 H (0.52-1.04) mg/dL Glucose 195 H 119 H (74-99) mg/dL Calcium 9.4 8.0 L (8.4-10.2) mg/dL Adrenal panel 07/08/21 07/09/21 Range/Units 15:59 07:40 Sodium 139 142 (137-145) mmol/L Potassium 3.7 3.7 (3.5-5.1) mmol/L Chloride 105 114 H (98-107) mmol/L Carbon Dioxide 18 L 18 L (22-30) mmol/L BUN 26 H 27 H (7-17) mg/dL Creatinine 1.73 H 2.16 H (0.52-1.04) mg/dL Glucose 195 H 119 H (74-99) mg/dL Calcium 9.4 8.0 L (8.4-10.2) mg/dL Total Bilirubin 0.9 0.5 (0.2-1.3) mg/dL AST 30 20 (14-36) U/L ALT 7 <6 (4-34) U/L Alkaline Phosphatase 133 H 88 (38-126) U/L Total Protein 8.2 5.9 L (6.3-8.2) g/dL Albumin 4.5 3.0 L (3.5-5.0) g/dL Assessment and Plan Assessment: This is 76-year-old female with history of a 6 mm right-sided ureteral stone, admitted to the hospital for her kidney stone, and troponin elevation. Cardiology has been consulted. She is asymptomatic today. Indicated at home had a temperature 100.9 but has remained afebrile during her entire hospital stay. Her creatinine is 2.1 from 1.76. Her baseline is around 1. Her WBC is down to 8.8 from 20. Discussed with him the possibility of an NSTEMI, we will await cardiology evaluation prior to proceeding with any surgical intervention. The patient is not septic at this time. Thus no emergent intervention is needed. We will plan on reevaluating tomorrow. If pain recurs or her creatinine worsens then at that point we'll proceed with a stent placement -repeat BMP tomorrow -Well keep NPO past MN
--- NOTE | 2021-07-09 13:17 | P.HPIM ---
History of Present Illness H&P Date: 07/09/21 Chief Complaint: Right flank pain History of presenting complaint: This is a 76-year-old patient of Dr. Washington who was chronic stable medical conditions include diabetes mellitus type 2, hyperlipidemia, osteoarthritis, hypothyroid, peripheral neuropathy, Parkinson's disease, hypothyroid. Irritable bowel syndrome. Patient had a stress test about 3 years ago and follows with linen room supervisor Dr. Hobson. 3 days ago on the morning patient started having right flank pain. Progressively got worse. Had nausea vomiting. Also fever and chills. [place]ie lightheaded totally tired rundown. Some shortness of breath. No chest pain. [place] tired and rundown. Computed tomography scan in the ER which showed large right sided hydronephrosis hydroureter with a 6.6 mm right renal junction calculus. Patient's troponins also came back positive. Ruling in for a silent MD. Patient has been on IV heparin. Tired. at the bedside. No prior cardiac history. At a baseline patient is able to get around the house comfortably. Does some limited exercise tolerance because of Parkinson's. Patient reports a fever of 100.9 at home. Review of systems: GEN.: Fever chills tired EYES: None HEENT: None NECK: None RESPIRATORY: None CARDIOVASCULAR: None GASTROINTESTINAL: As above GENITOURINARY: None MUSCULOSKELETAL: Joint pains LYMPHATICS: None HEMATOLOGICAL: None PSYCHIATRY: None NEUROLOGICAL: Some tremors Past medical history to include: Diabetes mellitus type 2, hyperlipidemia, osteoarthritis, hypothyroid, peripheral neuropathy, Parkinson's disease, hypothyroid, irritable bowel syndrome. Social history: . Smoked for 20 years stopped in 1991. No alcohol. Family history: Brain aneurysm. Vascular disorder. Physical examination: VITAL SIGNS: 98.5, 77, 18, 109/68, 95% room air GENERAL: BMI 23.3, reclining in bed, awake, tired. EYES: Pupils equal. Conjunctiva normal. HEENT: External appearance of nose and ears normal, oral cavity grossly normal. NECK: JVD not raised; masses not palpable. HEART: First and second heart sounds are normal; no edema. LUNGS: Respiratory rate normal; clear to auscultation. ABDOMEN: Soft, nontender, liver spleen not palpable, no masses palpable. PSYCH: Alert and oriented x3; mood and affect normal. MUSCULOSKELETAL:No Clubbing/cyanosis;muscles-grossly intact. OA NEUROLOGICAL: Cranial nerves grossly intact; no facial asymmetry, power and sensation grossly intact. LYMPHATICS: No lymph nodes palpable in the axilla and neck INVESTIGATIONS, reviewed in the clinical context: White count 8.8 hemoglobin 11.7 platelets 214 sodium 142 potassium 3.7 BUN 27 creatinine 2.16 Troponin I 1.8, 2.0, 1.5 Admission labs: White count 20.18:40.9 potassium 3.7 BUN 26 creatinine 1.73 UA positive for leukoesterase WBC EKG tracing personally reviewed by me-no sinus rhythm. Rate 70. Nonspecific ST-T wave changes. Chest x-ray film personally reviewed by me-normal sinus rhythm CT abdomen pelvis without contrast: Marked right-sided hydronephrosis and hydroureter secondary to 6.6 mm right UVJ calculus. 3.5 mm calcification on the right renal calyces. Previous labs: BUN 22 creatinine 1.06 on May 2021 Assessment and plan: -Marked right-sided hydronephrosis and hydroureter secondary to 6.6 mm right UVJ calculus, causing sepsis IV fluids. IV ceftriaxone. Consult urology -Kidney stones 6.6 mm obstructive at right UVJ junction Consult urology -Sepsis from above IV ceftriaxone, IV fluids -Acute silent MD, non-Q precipitated by sepsis. Underlying cardiac risk factors include diabetes hyperlipidemia. IV heparin. Aspirin. -Diabetes mellitus type 2, chronically on insulin Levemir 30 units subcu daily at bedtime. Follow sliding scale with Accu-Cheks. -Hyperlipidemia Add Lipitor 40 mg daily at bedtime -Acute kidney injury, ATN from sepsis Follow renal function -Primary osteoarthritis Tylenol when necessary -Hypothyroid Levothyroxine sodium 5 g a day -Diabetic peripheral neuropathy -Parkinson disease Sinemet 25/100, 3 tablets 3 times a day -Irritable bowel syndrome -IV heparin monitoring Follow PTT At this point because of the acute MD no intervention can be done for the ureters stone. Patient will have to be managed medically for now. IV ceftriaxone. IV heparin. Home medications resumed. Liver measures 30 units subcu daily at bedtime. Sliding scale. Follow labs. Care was discussed with the patient has been at the bedside. Given the complexity and severity of patient's condition expect the patient to be in the hospital at least for 2 overnights Past Medical History Past Medical History: Diabetes Mellitus, Eye Disorder, Hyperlipidemia, Musculoskeletal Disorder, Neurologic Disorder, Thyroid Disorder, Vascular Disorder Additional Past Medical History / Comment(s): IDDM type II, neuropathy L hand/L foot toes, parkinson's disease, essential termmors, small brain aneurysm, peptic ulcers, beginning of macular degeneration bilaterally, hypothyroid, frequent headaches, back pain/arthritis in back, IBS. History of Any Multi-Drug Resistant Organisms: None Reported Past Surgical History: Cholecystectomy, Hysterectomy Additional Past Surgical History / Comment(s): D&C, multiple surgeries for stabismus bilaterally, bilateral cataract removals/lens implants, colonoscopy. Carpul tunnel left wrist and elbow. Past Anesthesia/Blood Transfusion Reactions: No Reported Reaction Past Psychological History: Depression Additional Psychological History / Comment(s): Pt resides with her spouse. She uses no assistive device. She no longer drives, spouse drives. Smoking Status: Former smoker Past Alcohol Use History: None Reported Additional Past Alcohol Use History / Comment(s): Pt started smoking in 1971 and quit in 1991. Past Drug Use History: None Reported - Past Family History Mother Family Medical History: Vascular Disorder Additional Family Medical History / Comment(s): brain aneurysm - at age 45 Father History Unknown: Yes Family Medical History: Coronary Artery Disease (CAD) Additional Family Medical History / Comment(s): Pt was not raised by biological father. Medications and Allergies Home Medications Medication Instructions Recorded Confirmed Type Escitalopram [Lexapro] 20 mg PO DAILY 09/18/15 07/08/21 History Ezetimibe/Simvastatin [Vytorin 1 tab PO DAILY 09/18/15 07/08/21 History 10-20 mg Tablet] Carbidopa-Levodopa 25-100 mg 3 tab PO TID@0830,1230,1630 12/18/18 07/08/21 History [Sinemet 25-100 mg] Insulin Detemir [Levemir Flextouch 30 units SQ BID 12/18/18 07/08/21 History Pen] Vit C/E/Zn/Coppr/Lutein/Zeaxan 1 cap PO BID 12/18/18 07/08/21 History [Preservision Areds 2 Softgel] Aspirin EC [Ecotrin Low Dose] 81 mg PO DAILY 06/01/20 07/08/21 History Levothyroxine Sodium [Synthroid] 75 mcg PO DAILY 06/01/20 07/08/21 History Ascorbic Acid [Vitamin C] 500 mg PO DAILY 05/11/21 07/08/21 History Cholecalciferol [Vitamin D3 (25 50 mcg PO DAILY 05/11/21 07/08/21 History Mcg = 1000 Iu)] Cyanocobalamin (Vitamin B-12) 2,500 mcg PO DAILY 05/11/21 07/08/21 History [Vitamin B-12] Zinc 50 mg PO DAILY 05/11/21 07/08/21 History Topiramate [Topamax] 200 mg PO BID 07/08/21 07/08/21 History Allergies Allergy/AdvReac Type Severity Reaction Status Date / Time codeine Allergy Anaphylaxis Verified 07/08/21 18:36 meperidine HCl [From Demerol] Allergy Anaphylaxis Verified 07/08/21 18:36 Iodinated Contrast Media AdvReac Nausea & Verified 07/08/21 18:36 [Iodinated Contrast- Oral Vomiting and IV Dye] Physical Exam Vitals: Vital Signs Temp Pulse Pulse Resp BP BP Pulse Ox 07/09/21 03:50 97.9 F 67 16 117/60 99 07/09/21 00:00 98.5 F 74 18 112/66 97 07/08/21 20:54 97.9 F 67 12 109/64 97 07/08/21 18:16 98.8 F 64 14 129/72 95 07/08/21 15:43 98.5 F 77 18 109/68 95 Intake and Output 07/08/21 07/09/21 07/09/21 22:59 06:59 14:59 Intake Total 240 232.032 Output Total 100 0 Balance 240 -100 232.032 Intake: Intake, IV Titration 112.032 Amount Heparin Sod,Pork in 0.45% 112.032 NaCl 25,000 unit In 0.45 % NaCl 1 250ml.bag @ 12 UNITS/KG/HR 7.403 mls/hr IV .Q24H [facility] Rx#: [id number] Oral 240 120 Output: Urine 100 0 Stool 0 Urine/Stool Mix 0 Emesis 0 Other: Voiding Method Toilet Toilet # Voids 1 1 0 # Bowel Movements 0 Weight 61.689 kg Results CBC & Chem 7: 07/09/21 07:40 07/09/21 07:40 Labs: Abnormal Lab Results - Last 24 Hours (Table) 07/08/21 07/08/21 07/08/21 Range/Units 15:59 15:59 15:59 WBC 20.8 H (3.8-10.6) k/uL Neutrophils # 17.9 H (1.3-7.7) k/uL APTT (22.0-30.0) sec Chloride (98-107) mmol/L Carbon Dioxide 18 L (22-30) mmol/L BUN 26 H (7-17) mg/dL Creatinine 1.73 H (0.52-1.04) mg/dL Glucose 195 H (74-99) mg/dL POC Glucose (mg/dL) (75-99) mg/dL Plasma Lactic Acid Lm (0.7-2.0) mmol/L Calcium (8.4-10.2) mg/dL Alkaline Phosphatase 133 H (38-126) U/L Troponin I (0.000-0.034) ng/mL Total Protein (6.3-8.2) g/dL Albumin (3.5-5.0) g/dL Urine Protein 1+ H (Negative) Urine Ketones 1+ H (Negative) Urine Blood Moderate H (Negative) Ur Leukocyte Esterase Trace H (Negative) Urine RBC 86 H (0-5) /hpf Urine WBC 6 H (0-5) /hpf Urine Mucus Few H (None) /hpf 07/08/21 07/08/21 07/08/21 Range/Units 15:59 15:59 19:20 WBC (3.8-10.6) k/uL Neutrophils # (1.3-7.7) k/uL APTT (22.0-30.0) sec Chloride (98-107) mmol/L Carbon Dioxide (22-30) mmol/L BUN (7-17) mg/dL Creatinine (0.52-1.04) mg/dL Glucose (74-99) mg/dL POC Glucose (mg/dL) (75-99) mg/dL Plasma Lactic Acid Lm 2.3 H* (0.7-2.0) mmol/L Calcium (8.4-10.2) mg/dL Alkaline Phosphatase (38-126) U/L Troponin I 1.870 H* 2.000 H* (0.000-0.034) ng/mL Total Protein (6.3-8.2) g/dL Albumin (3.5-5.0) g/dL Urine Protein (Negative) Urine Ketones (Negative) Urine Blood (Negative) Ur Leukocyte Esterase (Negative) Urine RBC (0-5) /hpf Urine WBC (0-5) /hpf Urine Mucus (None) /hpf 07/08/21 07/08/21 07/08/21 Range/Units 22:38 23:09 23:09 WBC (3.8-10.6) k/uL Neutrophils # (1.3-7.7) k/uL APTT 44.0 H (22.0-30.0) sec Chloride (98-107) mmol/L Carbon Dioxide (22-30) mmol/L BUN (7-17) mg/dL Creatinine (0.52-1.04) mg/dL Glucose (74-99) mg/dL POC Glucose (mg/dL) 144 H (75-99) mg/dL Plasma Lactic Acid Lm (0.7-2.0) mmol/L Calcium (8.4-10.2) mg/dL Alkaline Phosphatase (38-126) U/L Troponin I 1.570 H* (0.000-0.034) ng/mL Total Protein (6.3-8.2) g/dL Albumin (3.5-5.0) g/dL Urine Protein (Negative) Urine Ketones (Negative) Urine Blood (Negative) Ur Leukocyte Esterase (Negative) Urine RBC (0-5) /hpf Urine WBC (0-5) /hpf Urine Mucus (None) /hpf 07/09/21 07/09/21 07/09/21 Range/Units 06:09 07:40 07:40 WBC (3.8-10.6) k/uL Neutrophils # (1.3-7.7) k/uL APTT 38.0 H (22.0-30.0) sec Chloride 114 H (98-107) mmol/L Carbon Dioxide 18 L (22-30) mmol/L BUN 27 H (7-17) mg/dL Creatinine 2.16 H (0.52-1.04) mg/dL Glucose 119 H (74-99) mg/dL POC Glucose (mg/dL) 115 H (75-99) mg/dL Plasma Lactic Acid Lm (0.7-2.0) mmol/L Calcium 8.0 L (8.4-10.2) mg/dL Alkaline Phosphatase (38-126) U/L Troponin I (0.000-0.034) ng/mL Total Protein 5.9 L (6.3-8.2) g/dL Albumin 3.0 L (3.5-5.0) g/dL Urine Protein (Negative) Urine Ketones (Negative) Urine Blood (Negative) Ur Leukocyte Esterase (Negative) Urine RBC (0-5) /hpf Urine WBC (0-5) /hpf Urine Mucus (None) /hpf Thrombosis Risk Factor Assmnt - Choose All That Apply Each Risk Factor Represents 2 Points: Age 61-74 years Thrombosis Risk Factor Assessment Total Risk Factor Score: 2 Thrombosis Risk Factor Assessment Level: Low Risk
[2021-07-09 16:11] LABS: Chol/HDL Ratio 3.73 Ratio; LDL Cholesterol,Calculated 64.8 mg/dL (0.0-131.0)
[2021-07-09 16:15] LABS: Glucose,Whole Blood 103 mg/dL (75-99)
[2021-07-09] MEDS: SODIUM CHLORIDE 0.9% 1,000 ML IV SCH ×3 (17:22→23:44)
[2021-07-09 19:57] LABS: Glucose,Whole Blood 129 mg/dL (75-99)
[2021-07-09] MEDS: INSULIN DETEMIR (LEVEMIR) 100 UNIT/ML SYR SQ SCH (20:20)
[2021-07-09] MEDS: ATORVASTATIN 40 MG TAB PO SCH (20:20)
[2021-07-09] MEDS: HEPARIN SOD,PORK IN 0.45% NACL 25,000 UNIT in 0.45% NACL 1 250ML.BAG IV SCH (20:21)
[2021-07-10] MEDS: HYDROmorphone 0.5 MG/0.5 ML SYRINGE IVP PRN ×4 (02:03→15:31)
[2021-07-10 05:55] LABS: Glucose,Whole Blood 115 mg/dL (75-99)
[2021-07-10] MEDS: LEVOTHYROXINE 75 MCG TAB PO SCH (06:06)
[2021-07-10] MEDS: INSULIN ASPART (NovoLOG) 100 UNIT/ML VIAL SQ SCH ×4 (06:06→20:27)
--- NOTE | 2021-07-10 07:21 | CA ---
Transthoracic Echo Report Name: Barbra Yu Age: 76 Gender: F : 1945 Exam Date: 07/09/2021 10:13 Exam Location: [facility] Ht (in): 64 Wt (lb): 136 Ordering Physician: Zoe Chance Attending/Referring Phys: Supervisor Anodizing Deidra Velazquez RDCS Procedure CPT: Indications: elevated troponin Cardiac Hx: Technical Quality: Good Contrast 1: Total Dose (mL): Contrast 2: Total Dose (mL): MEASUREMENTS (Male / Female) Normal Values 2D ECHO LV Diastolic Diameter PLAX 4.0 cm 4.2 - 5.9 / 3.9 - 5.3 cm LV Systolic Diameter PLAX 2.7 cm IVS Diastolic Thickness 0.8 cm 0.6 - 1.0 / 0.6 - 0.9 cm LVPW Diastolic Thickness 0.9 cm 0.6 - 1.0 / 0.6 - 0.9 cm LV Relative Wall Thickness 0.4 RV Internal Dim ED PLAX 1.9 cm LA Volume 21.5 cm??? 18 - 58 / 22 - 52 cm??? M-MODE Aortic Root Diameter MM 3.2 cm LA Systolic Diameter MM 3.3 cm LA Ao Ratio MM 1.0 MV E Point Septal Separation 1.4 cm AV Cusp Separation MM 1.6 cm DOPPLER AV Peak Velocity 118.0 cm/s AV Peak Gradient 5.6 mmHg MV Area PHT 2.5 cm??? MR Peak Velocity 272.5 cm/s MR Peak Gradient 29.7 mmHg Mitral E Point Velocity 77.3 cm/s Mitral A Point Velocity 99.9 cm/s Mitral E to A Ratio 0.8 MV Deceleration Time 301.1 ms MV E' Velocity 4.9 cm/s Mitral E to MV E' Ratio 15.7 TR Peak Velocity 92.2 cm/s TR Peak Gradient 3.4 mmHg Right Ventricular Systolic Press 8.4 mmHg FINDINGS Left Ventricle Left ventricular cavity size normal. Mid to basal inferolateral appears hypokinetic.left ventricular ejection fraction is estimated at 45-50 %. Right Ventricle Normal right ventricular size and function. Right ventricular systolic pressure within normal limits. Right Atrium The right atrium is normal in size. Left Atrium The left atrium is normal in size. Mitral Valve Structurally normal mitral valve without significant stenosis or prolapse. There is mild mitral regurgitation. Aortic Valve Structurally normal aortic valve without significant sclerosis or stenosis. There is no aortic regurgitation. Tricuspid Valve Structurally normal tricuspid valve without significant stenosis. Pulmonary artery systolic pressure is normal. Mild tricuspid regurgitation. Pulmonic Valve Structurally normal pulmonic valve without significant stenosis. There is no pulmonic regurgitation. Pericardium Normal pericardium without effusion. Aorta Normal aortic root dimension. CONCLUSIONS Mildly reduced left ventricular systolic function with inferior and inferior septal hypokinesis Previewed by: Dr. Rhys Qiu MD (Electronically Signed) Final Date: 10 Jul 2021 07:20
--- NOTE | 2021-07-10 08:50 | P.PN ---
Progress Note - Text Progress Note Date: 07/10/21 The patient has been diagnosed with an UT. She reports significant right flank pain resulting from her right distal ureteral calculus. I have spoken with Dr. Anthony, and we have agreed that the best course of action will be cystoscopy with right ureteral stent insertion later today, hopefully under IV sedation. I have reviewed the rationale for this decision with Mrs. Yu, and the fact that she will subsequently require removal of the stent along with ureteroscopy and laser lithotripsy. I have also reviewed potential risks, which include anesthesia, ureteral injury, and inability to successfully place the stent.
[2021-07-10] MEDS ORDERED: ASPIRIN 81 MG PO SCH (09:00)
[2021-07-10 10:15] LABS: Mean Platelet Volume 7.1; Platelet Count 193 k/uL (150-450)
[2021-07-10 10:28] LABS: Potassium 3.5 mmol/L (3.5-5.1)
[2021-07-10 11:36] LABS: Glucose,Whole Blood 107 mg/dL (75-99)
--- NOTE | 2021-07-10 12:56 | P.PN ---
Subjective This is a pleasant 76-year-old female past medical history significant for mild nonobstructive coronary artery disease, type 2 diabetes, hypertension, dyslipidemia, former smoker, nephrolithiasis. She follows in the office with Dr. Hobson. We have been asked to see in consultation for elevated troponin. Patient presents emergency department with worsening bilateral flank pain and upper back pain. She states her flank pain started 2 days ago and she also had a fever of 100.9 at home. She also had symptoms of chills, urinary frequency. She had no symptoms of chest pain or shortness of breath. Troponins were drawn in ER with elevation of 1.8-->2.0-->1.5. She was also found to be in acute kidney injury. CT abdomen and pelvis revealed marked right hydronephrosis and hydroureter secondary to a 6.6 obstructing calculus in the right UVJ 07/10/2021 Patient seen and examined at bedside, she denies any chest pain shortness of breath. Continues to have some flank pain. Serum creatinine worsened 2.16 yesterday- today 1.69. Echocardiogram revealed mildly decreased LV systolic function with an EF of 4550%, mid to basal inferior lateral appears hypokinetic, mild mitral regurgitation, mild tricuspid regurgitation. Echo in the office in 08/2020 revealed EF of 5560%. PHYSICAL EXAMINATION Vitals reviewed CONSTITUTIONAL: No apparent distress. HEENT: Neck Supple. No JVD. CHEST EXAMINATION: Lungs are clear to auscultation. No chest wall tenderness is noted on palpation or with deep breathing. HEART EXAMINATION: Regular rate and rhythm. S1, S2 heard. No murmurs, gallops or rub. ABDOMEN: Soft, nontender. Positive bowel sounds. EXTREMITIES: 2+ peripheral pulses, no lower extremity edema and no calf tenderne ss. SKIN: warm, dry NEUROLOGIC EXAMINATION: Patient is awake, alert and oriented x3. ASSESSMENT Elevated troponin, likely related to acute kidney injury, patient without any chest pain or new EKG abnormalities to suggest ischemia Cardiomyopathy, mildly reduced EF 45-50%, ischemic vs non-ischemic Acute kidney injury Right hydronephrosis seen on CT Nephrolithiasis Mild nonobstructive coronary artery disease- Last Cardiac Catheterization 2018 revealed 25% mid LAD stenosis, 20% mid RCA to stenosis, right dominant Type 2 diabetes Hypertension Dyslipidemia Former smoker PLAN From a cardiology perspective, we do not recommend cardiac catheterization at this time due to renal function. Patient has been on IV heparin for 48 hours, we will discontinue Urology following, plan for cystoscopy with possible right ureteral stent. From a cardiology perspective, no absolute contraindication to undergo surgery at this time. Recommend IV sedation if possible. Patient is hemodynamically stable. Recommend cautious fluid administration and optimal BP control. Continue aspirin, statin, Zetia and Metoprolol tartrate 12.5mg BID Further recommendations based on clinical course Nurse practitioner note has been reviewed by physician. Signing provider agrees with the documented findings, assessment, and plan of care. Objective - Vital Signs Vital signs: Vital Signs Temp 98.9 F 07/10/21 11:45 Pulse 62 07/10/21 11:45 Resp 20 07/10/21 11:45 BP 100/57 07/10/21 11:45 Pulse Ox 96 07/10/21 11:45 Intake & Output 07/09/21 07/10/21 07/10/21 18:59 06:59 18:59 Intake Total 1838.701 284.086 Output Total 400 900 500 Balance 1438.701 -615.914 -500 Intake: IV 108.52 Heparin Sod,Pork in 0.45% 108.52 NaCl 25,000 unit In 0.45 % NaCl 1 250ml.bag @ 12 UNITS/KG/HR 7.403 mls/hr IV .Q24H [facility] Rx#: [id number] Intake, IV Titration 1370.181 44.086 Amount Heparin Sod,Pork in 0.45% 170.181 44.086 NaCl 25,000 unit In 0.45 % NaCl 1 250ml.bag @ 12 UNITS/KG/HR 7.403 mls/hr IV .Q24H [facility] Rx#: [id number] Sodium Chloride 0.9% 1, 1200 000 ml @ 130 mls/hr IV . [id number] [facility] Rx#:[id number] Oral 360 240 Output: Urine 400 900 500 Stool 0 Urine/Stool Mix 0 Emesis 0 Other: Voiding Method Toilet Toilet Toilet # Voids 0 1 # Bowel Movements 0 - Labs CBC & Chem 7: 07/10/21 09:37 07/10/21 09:37 Labs: Abnormal Lab Results - Last 24 Hours (Table) 07/09/21 07/09/21 07/09/21 Range/Units 07:40 07:40 15:26 APTT 43.2 H (22.0-30.0) sec Chloride (98-107) mmol/L Carbon Dioxide (22-30) mmol/L BUN (7-17) mg/dL Creatinine (0.52-1.04) mg/dL Glucose (74-99) mg/dL POC Glucose (mg/dL) (75-99) mg/dL Hemoglobin A1c 6.6 H (0.0-6.0) % Calcium (8.4-10.2) mg/dL Triglycerides 181.00 H (0.00-149.00) mg/dL HDL Cholesterol 37.00 L (40.00-60.00) mg/dL 07/09/21 07/09/21 07/09/21 Range/Units 16:13 19:54 22:41 APTT 53.7 H (22.0-30.0) sec Chloride (98-107) mmol/L Carbon Dioxide (22-30) mmol/L BUN (7-17) mg/dL Creatinine (0.52-1.04) mg/dL Glucose (74-99) mg/dL POC Glucose (mg/dL) 103 H 129 H (75-99) mg/dL Hemoglobin A1c (0.0-6.0) % Calcium (8.4-10.2) mg/dL Triglycerides (0.00-149.00) mg/dL HDL Cholesterol (40.00-60.00) mg/dL 07/10/21 07/10/21 07/10/21 Range/Units 05:54 09:37 09:37 APTT 33.2 H (22.0-30.0) sec Chloride 115 H (98-107) mmol/L Carbon Dioxide 18 L (22-30) mmol/L BUN 20 H (7-17) mg/dL Creatinine 1.69 H (0.52-1.04) mg/dL Glucose 113 H (74-99) mg/dL POC Glucose (mg/dL) 115 H (75-99) mg/dL Hemoglobin A1c (0.0-6.0) % Calcium 8.0 L (8.4-10.2) mg/dL Triglycerides (0.00-149.00) mg/dL HDL Cholesterol (40.00-60.00) mg/dL 07/10/21 Range/Units 11:35 APTT (22.0-30.0) sec Chloride (98-107) mmol/L Carbon Dioxide (22-30) mmol/L BUN (7-17) mg/dL Creatinine (0.52-1.04) mg/dL Glucose (74-99) mg/dL POC Glucose (mg/dL) 107 H (75-99) mg/dL Hemoglobin A1c (0.0-6.0) % Calcium (8.4-10.2) mg/dL Triglycerides (0.00-149.00) mg/dL HDL Cholesterol (40.00-60.00) mg/dL Microbiology - Last 24 Hours (Table) 07/08/21 15:59 Urine Culture - Final Urine,Clean Catch 07/08/21 17:34 Blood Culture - Preliminary Blood No Growth after 24 hours 07/08/21 17:44 Blood Culture - Preliminary Blood No Growth after 24 hours
[2021-07-10 14:51] LABS: Glucose,Whole Blood 86 mg/dL (75-99)
[2021-07-10] MEDS ORDERED: IV FLUID CONTINUATION 1,000 ML IV ONE (14:55)
--- NOTE | 2021-07-10 14:58 | P.PN ---
Progress Note - Text Progress Note Date: 07/10/21 Chief Complaint: Right flank pain History of presenting complaint: This is a 76-year-old patient of Dr. Washington who was chronic stable medical conditions include diabetes mellitus type 2, hyperlipidemia, osteoarthritis, hypothyroid, peripheral neuropathy, Parkinson's disease, hypothyroid. Irritable bowel syndrome. Patient had a stress test about 3 years ago and follows with instrumentation specialist Dr. Hobson. 3 days ago on the morning patient started having right flank pain. Progressively got worse. Had nausea vomiting. Also fever and chills. Jay lightheaded totally tired rundown. Some shortness of breath. No chest pain. Jay tired and rundown. Computed tomography scan in the ER which showed large right sided hydronephrosis hydroureter with a 6.6 mm right renal junction calculus. Patient's troponins also came back positive. Ruling in for a silent [place]. Patient has been on IV heparin. Tired. at the bedside. No prior cardiac history. At a baseline patient is able to get around the house comfortably. Does some limited exercise tolerance because of Parkinson's. Patient reports a fever of 100.9 at home. Admitted with acute non-Q wave [place], right ureteral stone with sepsis, hydroureteronephrosis. Started IV fluids, IV ceftriaxone. IV heparin. July 10: Having significant right flank pain. On IV fluids IV ceftriaxone. IV heparin discontinued. Dr. lombardo discussed with cardiology and plan is for patient to proceed with cystoscopy with right ureteral stent insertion later today. This was discussed with the patient. Active Medications Acetaminophen (Acetaminophen Tab 325 Mg Tab) 650 mg PO Q4HR PRN PRN Reason: Pain Last Admin: 07/09/21 23:42 Dose: 650 mg Documented by: Aspirin (Aspirin 81 Mg) 81 mg PO DAILY [facility] Last Admin: 07/09/21 09:04 Dose: 81 mg Documented by: Atorvastatin Calcium (Atorvastatin 40 Mg Tab) 40 mg PO HS [facility] Last Admin: 07/09/21 20:20 Dose: 40 mg Documented by: Cyanocobalamin (Cyanocobalamin 500 Mcg Tab) 2,500 mcg PO DAILY [facility] Last Admin: 07/09/21 11:51 Dose: 2,500 mcg Documented by: Ezetimibe (Ezetimibe 10 Mg Tab) 10 mg PO DAILY [facility] Last Admin: 07/09/21 09:04 Dose: 10 mg Documented by: Escitalopram Oxalate (Escitalopram 20 Mg Tab) 20 mg PO DAILY [facility] Last Admin: 07/09/21 11:51 Dose: 20 mg Documented by: Hydromorphone HCl (Hydromorphone 0.5 Mg/0.5 Ml Syringe) 0.5 mg IVP Q4HR PRN PRN Reason: Pain Last Admin: 07/10/21 10:48 Dose: 0.5 mg Documented by: Sodium Chloride (Saline 0.9%) 1,000 mls @ 130 mls/hr IV .Q7H42M [facility] Last Admin: 07/09/21 23:44 Dose: Not Given Documented by: Ceftriaxone Sodium 1 gm/ (Sodium Chloride) 50 mls @ 100 mls/hr IVPB Q24H [facility]; Protocol Last Admin: 07/09/21 20:20 Dose: 100 mls/hr Documented by: Insulin Aspart (Insulin Aspart (Novolog) 100 Unit/Ml Vial) 0 unit SQ ACHS [facility]; Protocol Last Admin: 07/10/21 11:52 Dose: Not Given Documented by: Insulin Detemir (Insulin Detemir (Levemir) 100 Unit/Ml Syr) 30 unit SQ HS [facility] Last Admin: 07/09/21 20:20 Dose: 30 unit Documented by: Levothyroxine Sodium (Levothyroxine 75 Mcg Tab) 75 mcg PO DAILY@0630 [facility] Last Admin: 07/10/21 06:06 Dose: Not Given Documented by: Metoprolol Tartrate (Metoprolol Tartrate 12.5 Mg Tab) 12.5 mg PO BID [facility] Last Admin: 07/09/21 20:20 Dose: 12.5 mg Documented by: Nitroglycerin (Nitroglycerin Sl Tabs 0.4 Mg Tab) 0.4 mg SUBLINGUAL Q5M PRN PRN Reason: Chest Pain Topiramate (Topiramate 100 Mg Tab) 200 mg PO BID [facility] Last Admin: 07/09/21 20:20 Dose: 200 mg Documented by: Past medical history to include: Diabetes mellitus type 2, hyperlipidemia, osteoarthritis, hypothyroid, peripheral neuropathy, Parkinson's disease, hypothyroid, irritable bowel syndrome. Social history: . Smoked for 20 years stopped in 1991. No alcohol. Family history: Brain aneurysm. Vascular disorder. Physical examination: VITAL SIGNS: 98.9, 62, 20, 100/57, 96% room air GENERAL: reclining in bed, awake, tired. EYES: Pupils equal. Conjunctiva normal. HEENT: External appearance of nose and ears normal, oral cavity grossly normal. NECK: JVD not raised; masses not palpable. HEART: First and second heart sounds are normal; no edema. LUNGS: Respiratory rate normal; clear to auscultation. ABDOMEN: Soft, right flank tenderness, liver spleen not palpable, no masses palpable. PSYCH: Alert and oriented x3; mood and affect normal. MUSCULOSKELETAL:No Clubbing/cyanosis;muscles-grossly intact. OA NEUROLOGICAL: Cranial nerves grossly intact; no facial asymmetry, power and sensation grossly intact. Tremors. INVESTIGATIONS, reviewed in the clinical context: July 10: Sodium 142 potassium 3.5 BUN 20 creatinine 1.69 White count 8.8 hemoglobin 11.7 platelets 214 sodium 142 potassium 3.7 BUN 27 creatinine 2.16 Troponin I 1.8, 2.0, 1.5 Admission labs: White count 20.18:40.9 potassium 3.7 BUN 26 creatinine 1.73 UA positive for leukoesterase WBC EKG tracing personally reviewed by me-no sinus rhythm. Rate 70. Nonspecific ST-T wave changes. Chest x-ray film personally reviewed by me-normal sinus rhythm CT abdomen pelvis without contrast: Marked right-sided hydronephrosis and hydroureter secondary to 6.6 mm right UVJ calculus. 3.5 mm calcification on the right renal calyces. Previous labs: BUN 22 creatinine 1.06 on May 2021 Assessment and plan: -Marked right-sided hydronephrosis and hydroureter secondary to 6.6 mm right UVJ calculus, causing sepsis: Start to respond IV fluids. IV ceftriaxone. For cystoscopy in right ureter stent today -Kidney stones 6.6 mm obstructive at right UVJ junction: Not improving For cystoscopy Right ureter stent today -Sepsis from above IV ceftriaxone, IV fluids -Acute silent [place], non-Q precipitated by sepsis. Underlying cardiac risk factors include diabetes hyperlipidemia. IV heparin-discontinued. Aspirin. -Diabetes mellitus type 2, chronically on insulin Levemir 30 units subcu daily at bedtime. Follow sliding scale with Accu-Cheks. -Hyperlipidemia Lipitor 40 mg daily at bedtime -Acute kidney injury, ATN from sepsis: Slow to respond Follow renal function -Primary osteoarthritis Tylenol when necessary -Hypothyroid Levothyroxine sodium 5 g a day -Diabetic peripheral neuropathy -Parkinson disease Sinemet 25/100, 3 tablets 3 times a day -Irritable bowel syndrome -IV heparin monitoring: Held Follow PTT Urology spoke to cardiology and decision is made to proceed with cystoscopy with right ureter stent placement. IV heparin held. Continue IV ceftriaxone and IV fluids. Discussed with the patient and at the bedside. Follow labs.
[2021-07-10] MEDS: METOPROLOL TARTRATE 12.5 MG TAB PO SCH ×2 (15:16→20:39)
[2021-07-10] MEDS ORDERED: ONDANSETRON 4 MG/2 ML VIAL ONE (15:30)
[2021-07-10] MEDS ORDERED: ONDANSETRON 4 MG/2 ML VIAL IVP ONE (15:30)
[2021-07-10 15:40] LABS: Glucose,Whole Blood 103 mg/dL (75-99)
[2021-07-10] MEDS ORDERED: PROPOFOL 10 MG/ML 20 ML VIAL IV ONE (15:53)
[2021-07-10] MEDS ORDERED: PHENYLEPHRINE-0.9% NACL SYG 1,000 MCG/10 ML SYRINGE ONE (15:53)
[2021-07-10] MEDS ORDERED: fentaNYL (PF) 50 MCG/ML 2 ML AMP ONE (15:53)
[2021-07-10] MEDS ORDERED: MIDAZOLAM 2 MG/2 ML VIAL ONE (15:53)
[2021-07-10] MEDS ORDERED: LIDOCAINE 2% GEL 30 ML TUBE URETHRAL ONE (16:20)
[2021-07-10] MEDS ORDERED: SODIUM CHLORIDE 0.9% 100 ML with ceFAZolin 2 GM IV ONE ×2 (16:29)
--- NOTE | 2021-07-10 16:36 | P.OP ---
Date of Procedure: 07/10/21 Preoperative Diagnosis: Right ureteral calculus Postoperative Diagnosis: Same Procedure(s) Performed: Cystoscopy, right ureteral stent insertion Anesthesia: MAC Surgeon: Geovani Mendez Estimated Blood Loss (ml): 0 IV fluids (ml): 100 Pathology: none sent Condition: stable Disposition: PACU Indications for Procedure: The patient is a 76-year-old white female admitted with right renal colic due to a 7 mm UVJ calculus, causing hydronephrosis. Her pain has been persistent. She has been diagnosed with an [place]. In view of this, a ureteral stent will be placed under IV sedation to relieve the hydronephrosis. Operative Findings: Calculus impacted at right UVJ. Successful ureteral stent placement. Description of Procedure: The patient was taken to the operating room and placed in the dorsolithotomy position, with legs supported in Kwan stirrups. The external genitalia was prepped and draped sterilely. The 30 lens was used to introduce the 22-[place] Stortz cystoscopic sheath through the urethra and into the bladder under direct vision. The bladder was examined in its entirety. The left ureteral orifice appeared normal. A calculus was impacted at the right ureteral orifice. No tu mors or foreign bodies were seen. A 0.035 inch Glidewire was passed through the cystoscope. The right ureteral orifice was cannulated, and the Glidewire was slowly advanced beyond the calculus and up to the renal pelvis. A 24 cm, 6- [place] double-J ureteral stent was placed over the wire. Proper stent positioning was verified fluoroscopically and endoscopically. The urine draining from the right renal pelvis was initially cloudy, then turned bloody. With the beak of the cystoscope immediately adjacent to the distal end of the stent, urine was collected and sent for culture and sensitivity. Ancef 2 g were given intravenously. The bladder was emptied and the cystoscope removed. The patient tolerated the procedure well was taken to the recovery room in stable condition.
[2021-07-10 16:58] LABS: Glucose,Whole Blood 96 mg/dL (75-99)
[2021-07-10] MEDS: CYANOCOBALAMIN 500 MCG TAB PO SCH (18:03)
[2021-07-10] MEDS: ASPIRIN 81 MG PO SCH (18:03)
[2021-07-10] MEDS: TOPIRAMATE 100 MG TAB PO SCH ×2 (18:05→20:39)
[2021-07-10] MEDS: ESCITALOPRAM 20 MG TAB PO SCH (18:06)
[2021-07-10] MEDS: EZETIMIBE 10 MG TAB PO SCH (18:06)
[2021-07-10] MEDS: SODIUM CHLORIDE 0.9% 1,000 ML IV SCH ×3 (18:16→23:41)
--- NOTE | 2021-07-10 19:22 | FL ---
Intraoperative fluoroscopic services were provided for right ureteral stent placement. Total fluorosc opy time is 4.4 seconds with a total of 1 submitted images to PACS. Please see the operative note fo r further details.
[2021-07-10 19:36] LABS: Glucose,Whole Blood 92 mg/dL (75-99)
[2021-07-10] MEDS: ATORVASTATIN 40 MG TAB PO SCH (20:39)
[2021-07-10] MEDS: INSULIN DETEMIR (LEVEMIR) 100 UNIT/ML SYR SQ SCH (20:39)
[2021-07-11] MEDS: ACETAMINOPHEN TAB 325 MG TAB PO PRN ×2 (03:23→08:04)
[2021-07-11 05:49] LABS: Glucose,Whole Blood 72 mg/dL (75-99)
[2021-07-11] MEDS: INSULIN ASPART (NovoLOG) 100 UNIT/ML VIAL SQ SCH ×4 (06:12→21:35)
[2021-07-11] MEDS: LEVOTHYROXINE 75 MCG TAB PO SCH (06:14)
[2021-07-11] MEDS: SODIUM CHLORIDE 0.9% 1,000 ML IV SCH ×2 (06:15→15:16)
[2021-07-11] MEDS: ESCITALOPRAM 20 MG TAB PO SCH (08:05)
[2021-07-11] MEDS: CYANOCOBALAMIN 500 MCG TAB PO SCH (08:05)
[2021-07-11] MEDS: TOPIRAMATE 100 MG TAB PO SCH ×2 (08:05→21:39)
[2021-07-11] MEDS: METOPROLOL TARTRATE 12.5 MG TAB PO SCH ×2 (08:05→21:39)
[2021-07-11] MEDS: ASPIRIN 81 MG PO SCH (08:05)
[2021-07-11] MEDS: EZETIMIBE 10 MG TAB PO SCH (08:05)
--- NOTE | 2021-07-11 08:29 | P.PN ---
Progress Note - Text Progress Note Date: 07/11/21 Mrs. Yu had a temperature of 99.8F overnight. She is receiving ceftriaxone. Urine and blood cultures have been negative. A urine culture was sent intraoperatively at the time of her stent placement. She states that her pain is much improved. She did experience hematuria following the procedure, but states that her urine is clearing. She will require cystoscopy, right ureteral stent removal, right ureteroscopy with stone manipulation in several weeks, once cleared by Cardiology.
[2021-07-11 09:48] LABS: Basophils % (A) 0 %; Eosinophils # (A) 0.4 k/uL (0-0.7); Eosinophils % (A) 4 %; HCT 30.1 % (34.0-46.0); Lymphocytes # (A) 2.1 k/uL (1.0-4.8); Lymphocytes % (A) 23 %; MCH 30.3 pg (25.0-35.0); MCHC 33.2 g/dL (31.0-37.0); MCV 91.3 fL (80.0-100.0); Mean Platelet Volume 7.2; Monocytes # (A) 0.3 k/uL (0-1.0); Monocytes % (A) 4 %; Neutrophils # (A) 5.9 k/uL (1.3-7.7); Neutrophils % (A) 67 %; Platelet Count 200 k/uL (150-450); RBC 3.29 m/uL (3.80-5.40); RDW 13.3 % (11.5-15.5); WBC 8.9 k/uL (3.8-10.6)
[2021-07-11 10:13] LABS: Calcium 7.7 mg/dL (8.4-10.2)
[2021-07-11] MEDS ORDERED: POTASSIUM CHLORIDE ER 20 MEQ TAB.ER PO STA (10:34)
[2021-07-11] MEDS: HYDROmorphone 0.5 MG/0.5 ML SYRINGE IVP PRN (10:51)
[2021-07-11 11:37] LABS: Glucose,Whole Blood 123 mg/dL (75-99)
--- NOTE | 2021-07-11 13:59 | P.PN ---
Progress Note - Text Progress Note Date: 07/11/21 Chief Complaint: Right flank pain History of presenting complaint: This is a 76-year-old patient of Dr. Washington who was chronic stable medical conditions include diabetes mellitus type 2, hyperlipidemia, osteoarthritis, hypothyroid, peripheral neuropathy, Parkinson's disease, hypothyroid. Irritable bowel syndrome. 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 Hobson. 3 days ago on the morning patient started having right flank pain. Progressively got worse. Had nausea vomiting. Also fever and chills. Austin lightheaded totally tired rundown. Some shortness of breath. No chest pain. Austin tired and rundown. Computed tomography scan in the ER which showed large right sided hydronephrosis hydroureter with a 6.6 mm right renal junction calculus. Patient's troponins also came back positive. Ruling in for a silent [place]. Patient has been on IV heparin. Tired. at the bedside. No prior cardiac history. At a baseline patient is able to get around the house comfortably. Does some limited exercise tolerance because of Parkinson's. Patient reports a fever of 100.9 at home. Admitted with acute non-Q wave [place], right ureteral stone with sepsis, hydroureteronephrosis. Started IV fluids, IV ceftriaxone. IV heparin. July 10: Having significant right flank pain. On IV fluids IV ceftriaxone. IV heparin discontinued. Dr. lombardo discussed with cardiology and plan is for patient to proceed with cystoscopy with right ureteral stent insertion later today. This was discussed with the patient. July 11: Yesterday patient underwent cystoscopy with right double-J rater stent placement. Cloudy urine for by hematuria. Urine culture was sent off. Today patient's abdominal pain is better. Eating some. Afebrile. Tired. On IV ceftriaxone. IV fluids. Patient did have some chest pressure earlier. Active Medications Acetaminophen (Acetaminophen Tab 325 Mg Tab) 650 mg PO Q4HR PRN PRN Reason: Pain Last Admin: 07/11/21 08:04 Dose: 650 mg Documented by: Aspirin (Aspirin 81 Mg) 81 mg PO DAILY [facility] Last Admin: 07/11/21 08:05 Dose: 81 mg Documented by: Atorvastatin Calcium (Atorvastatin 40 Mg Tab) 40 mg PO HS [facility] Last Admin: 07/10/21 20:39 Dose: 40 mg Documented by: Cyanocobalamin (Cyanocobalamin 500 Mcg Tab) 2,500 mcg PO DAILY [facility] Last Admin: 07/11/21 08:05 Dose: 2,500 mcg Documented by: Ezetimibe (Ezetimibe 10 Mg Tab) 10 mg PO DAILY [facility] Last Admin: 07/11/21 08:05 Dose: 10 mg Documented by: Escitalopram Oxalate (Escitalopram 20 Mg Tab) 20 mg PO DAILY [facility] Last Admin: 07/11/21 08:05 Dose: 20 mg Documented by: Hydromorphone HCl (Hydromorphone 0.5 Mg/0.5 Ml Syringe) 0.5 mg IVP Q4HR PRN PRN Reason: Pain Last Admin: 07/11/21 10:51 Dose: 0.5 mg Documented by: Sodium Chloride (Saline 0.9%) 1,000 mls @ 130 mls/hr IV .Q7H42M [facility] Last Admin: 07/11/21 06:15 Dose: 130 mls/hr Documented by: Ceftriaxone Sodium 1 gm/ (Sodium Chloride) 50 mls @ 100 mls/hr IVPB Q24H [facility]; Protocol Last Admin: 07/10/21 18:02 Dose: Not Given Documented by: Insulin Aspart (Insulin Aspart (Novolog) 100 Unit/Ml Vial) 0 unit SQ ACHS [facility]; Protocol Last Admin: 07/11/21 11:42 Dose: Not Given Documented by: Insulin Detemir (Insulin Detemir (Levemir) 100 Unit/Ml Syr) 30 unit SQ HS [facility] Last Admin: 07/10/21 20:39 Dose: 30 unit Documented by: Levothyroxine Sodium (Levothyroxine 75 Mcg Tab) 75 mcg PO DAILY@0630 [facility] Last Admin: 07/11/21 06:14 Dose: 75 mcg Documented by: Metoprolol Tartrate (Metoprolol Tartrate 12.5 Mg Tab) 12.5 mg PO BID [facility] Last Admin: 07/11/21 08:05 Dose: 12.5 mg Documented by: Nitroglycerin (Nitroglycerin Sl Tabs 0.4 Mg Tab) 0.4 mg SUBLINGUAL Q5M PRN PRN Reason: Chest Pain Last Admin: 07/11/21 08:04 Dose: 0.4 mg Documented by: Topiramate (Topiramate 100 Mg Tab) 200 mg PO BID [facility] Last Admin: 07/11/21 08:05 Dose: 200 mg Documented by: Past medical history to include: Diabetes mellitus type 2, hyperlipidemia, osteoarthritis, hypothyroid, peripheral neuropathy, Parkinson's disease, hypothyroid, irritable bowel syndrome. Social history: . Smoked for 20 years stopped in 1991. No alcohol. Family history: Brain aneurysm. Vascular disorder. Physical examination: VITAL SIGNS: 98.7, 60, 20, 106/56, 98% room air GENERAL: reclining in bed, awake, tired. EYES: Pupils equal. Conjunctiva normal. HEENT: External appearance of nose and ears normal, oral cavity grossly normal. NECK: JVD not raised; masses not palpable. HEART: First and second heart sounds are normal; no edema. LUNGS: Respiratory rate normal; clear to auscultation. ABDOMEN: Soft, decreased her right flank tenderness, liver spleen not palpable, no masses palpable. PSYCH: Alert and oriented x3; mood and affect normal. MUSCULOSKELETAL:No Clubbing/cyanosis;muscles-grossly intact. OA NEUROLOGICAL: Cranial nerves grossly intact; no facial asymmetry, power and sensation grossly intact. Tremors. INVESTIGATIONS, reviewed in the clinical context: July 11: White count 8.9 hemoglobin 10 platelets 200 potassium 3. 15 creatinine 1.06 July 10: Sodium 142 potassium 3.5 BUN 20 creatinine 1.69 White count 8.8 hemoglobin 11.7 platelets 214 sodium 142 potassium 3.7 BUN 27 creatinine 2.16 Troponin I 1.8, 2.0, 1.5 Admission labs: White count 20.18:40.9 potassium 3.7 BUN 26 creatinine 1.73 UA positive for leukoesterase WBC EKG tracing personally reviewed by me-no sinus rhythm. Rate 70. Nonspecific ST-T wave changes. Chest x-ray film personally reviewed by me-normal sinus rhythm CT abdomen pelvis without contrast: Marked right-sided hydronephrosis and hydroureter secondary to 6.6 mm right UVJ calculus. 3.5 mm calcification on the right renal calyces. Previous labs: BUN 22 creatinine 1.06 on May 2021 Assessment and plan: -Marked right-sided hydronephrosis and hydroureter secondary to 6.6 mm right UVJ calculus, causing sepsis: IV fluids. IV ceftriaxone. cystoscopy in right ureter double-J stent placed yesterday. Cultures pending. -Kidney stones 6.6 mm obstructive at right UVJ junction: Not improving Double-J stent placed July 10. -Sepsis from above IV ceftriaxone, IV fluids -Acute silent [place], non-Q precipitated by sepsis. Underlying cardiac risk factors include diabetes hyperlipidemia. IV heparin-discontinued. Aspirin. -Post infarct angina Continue current medications -Diabetes mellitus type 2, chronically on insulin Levemir 30 units subcu daily at bedtime. Follow sliding scale with Accu-Cheks. -Hyperlipidemia Lipitor 40 mg daily at bedtime -Acute kidney injury, ATN from sepsis: Slow to respond Follow renal function -Primary osteoarthritis Tylenol when necessary -Hypothyroid Levothyroxine sodium 5 g a day -Diabetic peripheral neuropathy -Parkinson disease Sinemet 25/100, 3 tablets 3 times a day -Irritable bowel syndrome -IV heparin monitoring: Discontinued Follow PTT Continue current medication treatment plan. IV fluids. IV ceftriaxone. Patient had chest pressure today. Follow with cardiology. On beta blockers aspirin.
--- NOTE | 2021-07-11 14:30 | P.PN ---
Subjective This is a pleasant 76-year-old female past medical history significant for mild nonobstructive coronary artery disease, type 2 diabetes, hypertension, dyslipidemia, former smoker, nephrolithiasis. She follows in the office with Dr. Hobson. We have been asked to see in consultation for elevated troponin. Patient presents emergency department with worsening bilateral flank pain and upper back pain. She states her flank pain started 2 days ago and she also had a fever of 100.9 at home. She also had symptoms of chills, urinary frequency. She had no symptoms of chest pain or shortness of breath. Troponins were drawn in ER with elevation of 1.8-->2.0-->1.5. She was also found to be in acute kidney injury. CT abdomen and pelvis revealed marked right hydronephrosis and hydroureter secondary to a 6.6 obstructing calculus in the right UVJ Echocardiogram revealed mildly decreased LV systolic function with an EF of 4550%, mid to basal inferior lateral appears hypokinetic, mild mitral regurgitation, mild tricuspid regurgitation. Echo in the office in 08/2020 revealed EF of 5560%. 07/10/2021 patient underwent cystoscopy with right ureteral stent insertion with urology. 07/11/2021 Patient seen and examined at bedside, patient with episode of chest pain this morning, nonradiating, nonexertional. Some relief with nitroglycerin. Patient also with worsening headache after Nitro. EKG was performed and revealed Sinus rhythm and no acute ST changes noted. Patient also appears pale on exam. Serum creatinine significantly improved to 1.06. Hgb decreased to 10.0 PHYSICAL EXAMINATION Vitals reviewed CONSTITUTIONAL: No apparent distress. HEENT: Neck Supple. No JVD. CHEST EXAMINATION: Lungs are clear to auscultation. No chest wall tenderness is noted on palpation or with deep breathing. HEART EXAMINATION: Regular rate and rhythm. S1, S2 heard. No murmurs, gallops or rub. ABDOMEN: Soft, nontender. Positive bowel sounds. EXTREMITIES: 2+ peripheral pulses, no lower extremity edema and no calf tenderness. SKIN: warm, dry NEUROLOGIC EXAMINATION: Patient is awake, alert and oriented x3. ASSESSMENT Elevated troponin, likely related to acute kidney injury, patient without any chest pain or new EKG abnormalities to suggest ischemia Cardiomyopathy, mildly reduced EF 45-50%, ischemic vs non-ischemic Status post cystoscopy with right ureteral stent insertion 07/10/21 Acute kidney injury, improved Right hydronephrosis seen on CT Nephrolithiasis Mild nonobstructive coronary artery disease- Last Cardiac Catheterization 2018 revealed 25% mid LAD stenosis, 20% mid RCA to stenosis, right dominant Type 2 diabetes Hypertension Dyslipidemia Former smoker Anemia Hypokalemia, replaced PLAN From a cardiology perspective, we do not recommend cardiac catheterization at this time. Chest pain this morning could be related to Anemia. No changes on EKG this morning. Continue aspirin, statin, Zetia and Metoprolol tartrate 12.5mg BID Monitor renal function and electrolytes Further recommendations based on clinical course Nurse practitioner note has been reviewed by physician. Signing provider agrees with the documented findings, assessment, and plan of care. Objective - Vital Signs Vital signs: Vital Signs Temp 98.9 F 07/11/21 04:00 Pulse 61 07/11/21 04:00 Resp 16 07/11/21 04:00 BP 111/61 07/11/21 04:00 Pulse Ox 96 07/11/21 04:00 Intake & Output 07/10/21 07/11/21 07/11/21 18:59 06:59 18:59 Intake Total 1700 540 Output Total 1275 600 Balance 425 -60 Intake: IV 450 Intake, IV Titration 1250 Amount Sodium Chloride 0.9% 100 1200 ml @ 0 mls/hr IV .STK-MED ONE with ceFAZolin 2 gm Rx#:[id number] cefTRIAXone 1 gm In 50 Sodium Chloride 0.9% 50 ml @ 100 mls/hr IVPB Q24H [facility] Rx#:[id number] Oral 540 Output: Urine 1275 600 Other: Voiding Method Toilet Toilet # Voids 1 - Labs CBC & Chem 7: 07/11/21 08:53 07/11/21 08:53 Labs: Abnormal Lab Results - Last 24 Hours (Table) 07/10/21 07/10/21 07/10/21 Range/Units 09:37 09:37 11:35 APTT 33.2 H (22.0-30.0) sec Chloride 115 H (98-107) mmol/L Carbon Dioxide 18 L (22-30) mmol/L BUN 20 H (7-17) mg/dL Creatinine 1.69 H (0.52-1.04) mg/dL Glucose 113 H (74-99) mg/dL POC Glucose (mg/dL) 107 H (75-99) mg/dL Calcium 8.0 L (8.4-10.2) mg/dL 07/10/21 07/11/21 Range/Units 15:38 05:48 APTT (22.0-30.0) sec Chloride (98-107) mmol/L Carbon Dioxide (22-30) mmol/L BUN (7-17) mg/dL Creatinine (0.52-1.04) mg/dL Glucose (74-99) mg/dL POC Glucose (mg/dL) 103 H 72 L (75-99) mg/dL Calcium (8.4-10.2) mg/dL Microbiology - Last 24 Hours (Table) 07/08/21 17:34 Blood Culture - Preliminary Blood No Growth after 48 hours 07/08/21 17:44 Blood Culture - Preliminary Blood No Growth after 48 hours 07/08/21 15:59 Urine Culture - Final Urine,Clean Catch
[2021-07-11 16:30] LABS: Glucose,Whole Blood 144 mg/dL (75-99)
[2021-07-11 20:26] LABS: Glucose,Whole Blood 113 mg/dL (75-99)
[2021-07-11] MEDS: ATORVASTATIN 40 MG TAB PO SCH (21:39)
[2021-07-11] MEDS: INSULIN DETEMIR (LEVEMIR) 100 UNIT/ML SYR SQ SCH (21:40)
[2021-07-12] MEDS: SODIUM CHLORIDE 0.9% 1,000 ML IV SCH ×3 (02:15→18:16)
[2021-07-12 06:15] LABS: Glucose,Whole Blood 91 mg/dL (75-99)
[2021-07-12] MEDS: INSULIN ASPART (NovoLOG) 100 UNIT/ML VIAL SQ SCH ×4 (06:42→21:22)
[2021-07-12] MEDS: LEVOTHYROXINE 75 MCG TAB PO SCH (06:44)
[2021-07-12] MEDS: HYDROmorphone 0.5 MG/0.5 ML SYRINGE IVP PRN (08:44)
[2021-07-12] MEDS: TOPIRAMATE 100 MG TAB PO SCH ×2 (08:44→21:21)
[2021-07-12 09:01] LABS: Basophils % (A) 0 %; Eosinophils # (A) 0.5 k/uL (0-0.7); Eosinophils % (A) 7 %; HCT 30.8 % (34.0-46.0); Lymphocytes # (A) 1.6 k/uL (1.0-4.8); Lymphocytes % (A) 23 %; MCH 29.5 pg (25.0-35.0); MCHC 32.3 g/dL (31.0-37.0); MCV 91.3 fL (80.0-100.0); Mean Platelet Volume 7.4; Monocytes # (A) 0.3 k/uL (0-1.0); Monocytes % (A) 5 %; Neutrophils # (A) 4.5 k/uL (1.3-7.7); Neutrophils % (A) 64 %; Platelet Count 192 k/uL (150-450); RBC 3.38 m/uL (3.80-5.40); RDW 12.9 % (11.5-15.5)
[2021-07-12 09:24] LABS: Calcium 7.7 mg/dL (8.4-10.2); Potassium 3.1 mmol/L (3.5-5.1)
--- NOTE | 2021-07-12 11:22 | P.PN ---
Progress Note - Text Progress Note Date: 07/12/21 The patient is afebrile with stable vital signs. She reports occasional right- sided discomfort, considerably less than she experienced prior to stent placement. Her renal function has normalized. There is nothing further which needs to be done urologically during this hospitalization. She will be given an appointment upon discharge to follow up with me in 2 weeks. She will require elective cystoscopy, right ureteroscopy with ureteroscopic stone manipulation under general anesthesia within the next 6-8 weeks.
[2021-07-12 12:10] LABS: Glucose,Whole Blood 82 mg/dL (75-99)
[2021-07-12] MEDS: CYANOCOBALAMIN 500 MCG TAB PO SCH (12:22)
[2021-07-12] MEDS: ESCITALOPRAM 20 MG TAB PO SCH (12:22)
[2021-07-12] MEDS: METOPROLOL TARTRATE 12.5 MG TAB PO SCH ×2 (12:22→21:21)
[2021-07-12] MEDS: ASPIRIN 81 MG PO SCH (12:22)
[2021-07-12] MEDS: EZETIMIBE 10 MG TAB PO SCH (12:22)
[2021-07-12] MEDS ORDERED: Potassium Replacement Protocol 1 EACH MISC MISCELLANE PRN (12:24)
--- NOTE | 2021-07-12 12:56 | P.PN ---
Subjective This is a pleasant 76-year-old female past medical history significant for mild nonobstructive coronary artery disease, type 2 diabetes, hypertension, dyslipidemia, former smoker, nephrolithiasis. She follows in the office with Dr. Hobson. We have been asked to see in consultation for elevated troponin. Patient presents emergency department with worsening bilateral flank pain and upper back pain. She states her flank pain started 2 days ago and she also had a fever of 100.9 at home. She also had symptoms of chills, urinary frequency. She had no symptoms of chest pain or shortness of breath. Troponins were drawn in ER with elevation of 1.8-->2.0-->1.5. She was also found to be in acute kidney injury. CT abdomen and pelvis revealed marked right hydronephrosis and hydroureter secondary to a 6.6 obstructing calculus in the right UVJ Echocardiogram revealed mildly decreased LV systolic function with an EF of 4550%, mid to basal inferior lateral appears hypokinetic, mild mitral regurgitation, mild tricuspid regurgitation. Echo in the office in 08/2020 revealed EF of 5560%. 07/10/2021 patient underwent cystoscopy with right ureteral stent insertion with urology. 07/12/2021 Patient seen and examined at bedside, patient without any chest pain this morning. Having some flank pain. EKG was performed yesterdasy and revealed Sinus rhythm and no acute ST changes noted. Serum creatinine significantly improved to normal today. Hgb stable at 10.0 PHYSICAL EXAMINATION Vitals reviewed CONSTITUTIONAL: No apparent distress. HEENT: Neck Supple. No JVD. CHEST EXAMINATION: Lungs are clear to auscultation. No chest wall tenderness is noted on palpation or with deep breathing. HEART EXAMINATION: Regular rate and rhythm. S1, S2 heard. No murmurs, gallops or rub. ABDOMEN: Soft, nontender. Positive bowel sounds. EXTREMITIES: 2+ peripheral pulses, no lower extremity edema and no calf tenderness. SKIN: warm, dry NEUROLOGIC EXAMINATION: Patient is awake, alert and oriented x3. ASSESSMENT Elevated troponin, likely related to acute kidney injury, patient without any chest pain or new EKG abnormalities to suggest ischemia Cardiomyopathy, mildly reduced EF 45-50%, ischemic vs non-ischemic Status post cystoscopy with right ureteral stent insertion 07/10/21 Acute kidney injury, improved Right hydronephrosis seen on CT Nephrolithiasis Mild nonobstructive coronary artery disease- Last Cardiac Catheterization 2018 revealed 25% mid LAD stenosis, 20% mid RCA to stenosis, right dominant Type 2 diabetes Hypertension Dyslipidemia Former smoker Anemia Hypokalemia, replaced PLAN From a cardiology perspective, we do not recommend cardiac catheterization at this time. Continue aspirin, statin, Zetia and Metoprolol tartrate 12.5mg BID No further changes from a cardiology perspective. Patient to follow up outpatient with Dr. Hobson in 1-2 weeks. Nurse practitioner note has been reviewed by physician. Signing provider agrees with the documented findings, assessment, and plan of care. Objective - Vital Signs Vital signs: Vital Signs Temp 98.2 F 07/12/21 12:00 Pulse 57 L 07/12/21 12:00 Resp 18 07/12/21 12:00 BP 130/59 07/12/21 12:00 Pulse Ox 98 07/12/21 12:00 Intake & Output 07/11/21 07/12/21 07/12/21 18:59 06:59 18:59 Intake Total 240 120 Output Total 600 400 500 Balance -360 -400 -380 Intake: Oral 240 120 Output: Urine 600 400 500 Other: Voiding Method Toilet Toilet # Voids 1 0 # Bowel Movements 0 - Labs CBC & Chem 7: 07/12/21 08:31 07/12/21 08:31 Labs: Abnormal Lab Results - Last 24 Hours (Table) 07/11/21 07/11/21 07/12/21 Range/Units 16:28 20:24 08:31 RBC 3.38 L (3.80-5.40) m/uL Hgb 10.0 L (11.4-16.0) gm/dL Hct 30.8 L (34.0-46.0) % Potassium (3.5-5.1) mmol/L Chloride (98-107) mmol/L Carbon Dioxide (22-30) mmol/L Glucose (74-99) mg/dL POC Glucose (mg/dL) 144 H 113 H (75-99) mg/dL Calcium (8.4-10.2) mg/dL 07/12/21 Range/Units 08:31 RBC (3.80-5.40) m/uL Hgb (11.4-16.0) gm/dL Hct (34.0-46.0) % Potassium 3.1 L (3.5-5.1) mmol/L Chloride 116 H (98-107) mmol/L Carbon Dioxide 21 L (22-30) mmol/L Glucose 126 H (74-99) mg/dL POC Glucose (mg/dL) (75-99) mg/dL Calcium 7.7 L (8.4-10.2) mg/dL Microbiology - Last 24 Hours (Table) 07/08/21 17:44 Blood Culture - Preliminary Blood No Growth after 72 hours 07/08/21 17:34 Blood Culture - Preliminary Blood No Growth after 72 hours
[2021-07-12] MEDS: POTASSIUM CHLORIDE ER 20 MEQ TAB.ER PO SCH ×2 (14:13→17:07)
[2021-07-12 16:51] LABS: Glucose,Whole Blood 126 mg/dL (75-99)
--- NOTE | 2021-07-12 19:59 | P.PN ---
Progress Note - Text Progress Note Date: 07/12/21 Chief Complaint: Right flank pain History of presenting complaint: This is a 76-year-old patient of Dr. Washington who was chronic stable medical conditions include diabetes mellitus type 2, hyperlipidemia, osteoarthritis, hypothyroid, peripheral neuropathy, Parkinson's disease, hypothyroid. Irritable bowel syndrome. Patient had a stress test about 3 years ago and follows with machine burrer Dr. Hobson. 3 days ago on the morning patient started having right flank pain. Progressively got worse. Had nausea vomiting. Also fever and chills. [place] lightheaded totally tired rundown. Some shortness of breath. No chest pain. [place] tired and rundown. Computed tomography scan in the ER which showed large right sided hydronephrosis hydroureter with a 6.6 mm right renal junction calculus. Patient's troponins also came back positive. Ruling in for a silent TN. Patient has been on IV heparin. Tired. at the bedside. No prior cardiac history. At a baseline patient is able to get around the house comfortably. Does some limited exercise tolerance because of Parkinson's. Patient reports a fever of 100.9 at home. Admitted with acute non-Q wave TN, right ureteral stone with sepsis, hydroureteronephrosis. Started IV fluids, IV ceftriaxone. IV heparin. July 3: Having significant right flank pain. On IV fluids IV ceftriaxone. IV heparin discontinued. Dr. lombadro discussed with cardiology and plan is for patient to proceed with cystoscopy with right ureteral stent insertion later today. This was discussed with the patient. July 11: Yesterday patient underwent cystoscopy with right double-J rater stent placement. Cloudy urine for by hematuria. Urine culture was sent off. Today patient's abdominal pain is better. Eating some. Afebrile. Tired. On IV ceftriaxone. IV fluids. Patient did have some chest pressure earlier. July 5: Having some right flank pain. Family the bedside. Eating some. Cultures have been negative. Tired. Per cardiology no cardiac catheterization at this point. Increase activity Active Medications Acetaminophen (Acetaminophen Tab 325 Mg Tab) 650 mg PO Q4HR PRN PRN Reason: Pain Last Admin: 07/11/21 08:04 Dose: 650 mg Documented by: Aspirin (Aspirin 81 Mg) 81 mg PO DAILY NEMO Last Admin: 07/12/21 12:22 Dose: 81 mg Documented by: Atorvastatin Calcium (Atorvastatin 40 Mg Tab) 40 mg PO HS [facility] Last Admin: 07/11/21 21:39 Dose: 40 mg Documented by: Cyanocobalamin (Cyanocobalamin 500 Mcg Tab) 2,500 mcg PO DAILY [facility] Last Admin: 07/12/21 12:22 Dose: 2,500 mcg Documented by: Ezetimibe (Ezetimibe 10 Mg Tab) 10 mg PO DAILY [facility] Last Admin: 07/12/21 12:22 Dose: 10 mg Documented by: Escitalopram Oxalate (Escitalopram 20 Mg Tab) 20 mg PO DAILY [facility] Last Admin: 07/12/21 12:22 Dose: 20 mg Documented by: Hydromorphone HCl (Hydromorphone 0.5 Mg/0.5 Ml Syringe) 0.5 mg IVP Q4HR PRN PRN Reason: Pain Last Admin: 07/12/21 08:44 Dose: 0.5 mg Documented by: Sodium Chloride (Saline 0.9%) 1,000 mls @ 130 mls/hr IV .Q7H42M [facility] Last Admin: 07/12/21 18:16 Dose: Not Given Documented by: Ceftriaxone Sodium 1 gm/ (Sodium Chloride) 50 mls @ 100 mls/hr IVPB Q24H [facility]; Protocol Last Admin: 07/12/21 17:10 Dose: 100 mls/hr Documented by: Insulin Aspart (Insulin Aspart (Novolog) 100 Unit/Ml Vial) 0 unit SQ [facility]; Protocol Last Admin: 07/12/21 17:07 Dose: Not Given Documented by: Insulin Detemir (Insulin Detemir (Levemir) 100 Unit/Ml Syr) 30 unit SQ [facility] Last Admin: 07/11/21 21:40 Dose: 30 unit Documented by: Levothyroxine Sodium (Levothyroxine 75 Mcg Tab) 75 mcg PO DAILY@0630 [facility] Last Admin: 07/12/21 06:44 Dose: 75 mcg Documented by: Metoprolol Tartrate (Metoprolol Tartrate 12.5 Mg Tab) 12.5 mg PO BID [facility] Last Admin: 07/12/21 12:22 Dose: 12.5 mg Documented by: Miscellaneous Information (Potassium Replacement Protocol 1 Each Misc) 1 each MISCELLANE DAILY PRN; Protocol PRN Reason: Per Protocol Nitroglycerin (Nitroglycerin Sl Tabs 0.4 Mg Tab) 0.4 mg SUBLINGUAL Q5M PRN PRN Reason: Chest Pain Last Admin: 07/11/21 08:04 Dose: 0.4 mg Documented by: Topiramate (Topiramate 100 Mg Tab) 200 mg PO BID NEMO Last Admin: 07/12/21 08:44 Dose: 200 mg Documented by: Past medical history to include: Diabetes mellitus type 2, hyperlipidemia, osteoarthritis, hypothyroid, peripheral neuropathy, Parkinson's disease, hypothyroid, irritable bowel syndrome. Social history: . Smoked for 20 years stopped in 1991. No alcohol. Family history: Brain aneurysm. Vascular disorder. Physical examination: VITAL SIGNS: 98.5, 59, 17, 143/ 65, 97% room air GENERAL: reclining in bed, awake, tired. EYES: Pupils equal. Conjunctiva normal. HEENT: External appearance of nose and ears normal, oral cavity grossly normal. NECK: JVD not raised; masses not palpable. HEART: First and second heart sounds are normal; no edema. LUNGS: Respiratory rate normal; clear to auscultation. ABDOMEN: Soft, mild right flank tenderness, liver spleen not palpable, no masses palpable. PSYCH: Alert and oriented x3; mood and affect normal. MUSCULOSKELETAL:No Clubbing/cyanosis;muscles-grossly intact. OA NEUROLOGICAL: Cranial nerves grossly intact; no facial asymmetry, power and sensation grossly intact. Tremors. INVESTIGATIONS, reviewed in the clinical context: July 12: White count 17 hemoglobin 10 platelets 192 potassium 3.1 creatinine 0.91 pro-calcitonin 0.08 July 4: White count 8.9 hemoglobin 10 platelets 200 potassium 3. 15 creatinine 1.06 July 3: Sodium 142 potassium 3.5 BUN 20 creatinine 1.69 White count 8.8 hemoglobin 11.7 platelets 214 sodium 142 potassium 3.7 BUN 27 creatinine 2.16 Troponin I 1.8, 2.0, 1.5 Admission labs: White count 20.18:40.9 potassium 3.7 BUN 26 creatinine 1.73 UA positive for leukoesterase WBC EKG tracing personally reviewed by me-no sinus rhythm. Rate 70. Nonspecific ST-T wave changes. Chest x-ray film personally reviewed by me-normal sinus rhythm CT abdomen pelvis without contrast: Marked right-sided hydronephrosis and hydroureter secondary to 6.6 mm right UVJ calculus. 3.5 mm calcification on the right renal calyces. Previous labs: BUN 22 creatinine 1.06 on May 2021 Assessment and plan: -Marked right-sided hydronephrosis and hydroureter secondary to 6.6 mm right UVJ calculus, causing sepsis: IV fluids. IV ceftriaxone. cystoscopy in right ureter double-J stent placed July 10. Cultures pending. -Kidney stones 6.6 mm obstructive at right UVJ junction: Not improving Double-J stent placed July 10. -Sepsis from above: Better IV ceftriaxone, IV fluids -Acute silent TN, non-Q precipitated by sepsis. Underlying cardiac risk factors include diabetes hyperlipidemia. IV heparin-discontinued. Aspirin. Not for cardiac catheterization at present time -Post infarct angina: Improved Continue current medications -Diabetes mellitus type 2, chronically on insulin Levemir 30 units subcu daily at bedtime. Follow sliding scale with Accu-Cheks. -Hyperlipidemia Lipitor 40 mg daily at bedtime -Acute kidney injury, ATN from sepsis: Slow to respond Follow renal function -Primary osteoarthritis Tylenol when necessary -Hypothyroid Levothyroxine sodium 5 g a day -Diabetic peripheral neuropathy -Parkinson disease Sinemet 25/100, 3 tablets 3 times a day -Irritable bowel syndrome -IV heparin monitoring: Discontinued Follow PTT Continue IV fluids, IV ceftriaxone. Up in a chair. Increase activity. No further intervention per cardiac surgery. Discussed with patient.
[2021-07-12 20:53] LABS: Glucose,Whole Blood 156 mg/dL (75-99)
[2021-07-12] MEDS: ATORVASTATIN 40 MG TAB PO SCH (21:21)
[2021-07-12] MEDS: INSULIN DETEMIR (LEVEMIR) 100 UNIT/ML SYR SQ SCH (21:22)
[2021-07-13] MEDS: SODIUM CHLORIDE 0.9% 1,000 ML IV SCH (05:53)
[2021-07-13] MEDS: LEVOTHYROXINE 75 MCG TAB PO SCH (05:58)
[2021-07-13 06:41] LABS: Calcium 8.6 mg/dL (8.4-10.2); Potassium 3.5 mmol/L (3.5-5.1)
[2021-07-13 07:00] VITALS: RESP 16; TEMP 98.5
[2021-07-13 07:02] LABS: Glucose,Whole Blood 71 mg/dL (75-99)
[2021-07-13] MEDS: INSULIN ASPART (NovoLOG) 100 UNIT/ML VIAL SQ SCH (07:48)
[2021-07-13 08:35] VITALS: BP 129/73; PULSE 56
[2021-07-13] MEDS: CYANOCOBALAMIN 500 MCG TAB PO SCH (09:52)
[2021-07-13] MEDS: TOPIRAMATE 100 MG TAB PO SCH (09:52)
[2021-07-13] MEDS ORDERED: CARBIDOPA-LEVODOPA 25-100 MG 1 EACH TAB PO SCH (09:53)
[2021-07-13] MEDS: EZETIMIBE 10 MG TAB PO SCH (09:53)
[2021-07-13] MEDS: METOPROLOL TARTRATE 12.5 MG TAB PO SCH (09:53)
[2021-07-13] MEDS: ESCITALOPRAM 20 MG TAB PO SCH (09:53)
[2021-07-13] MEDS: ASPIRIN 81 MG PO SCH (09:53)
[2021-07-13 11:28] VITALS: BMI 23.3
--- NOTE | 2021-07-13 20:21 | P.DS ---
Providers Date of admission: 07/08/21 20:42 Expected date of discharge: 07/13/21 Attending physician: Rashad Bird Consults: 07/08/21 18:35 Consult Physician Stat Consulting Provider: Des Rosenberg Consult Reason/Comments: Obstructive uropathy, ureteral stone Do you want consulting provider notified?: Already Contacted Primary care physician: [facility] Course: Chief Complaint: Right flank pain History of presenting complaint: This is a 76-year-old patient of Dr. Washington who was chronic stable medical conditions include diabetes mellitus type 2, hyperlipidemia, osteoarthritis, hypothyroid, peripheral neuropathy, Parkinson's disease, hypothyroid. Irritable bowel syndrome. Patient had a stress test about 3 years ago and follows with adjunct political science instructor Dr. Hobson. 3 days ago on the morning patient started having right flank pain. Progressively got worse. Had nausea vomiting. Also fever and chills. [place] lightheaded totally tired rundown. Some shortness of breath. No chest pain. [place] tired and rundown. Computed tomography scan in the ER which showed large right sided hydronephrosis hydroureter with a 6.6 mm right renal junction calculus. Patient's troponins also came back positive. Ruling in for a silent PR. Patient has been on IV heparin. Tired. at the bedside. No prior cardiac history. At a baseline patient is able to get around the house comfortably. Does some limited exercise tolerance because of Parkinson's. Patient reports a fever of 100.9 at home. Admitted with acute non-Q wave PR, right ureteral stone with sepsis, hydroureteronephrosis. Started IV fluids, IV ceftriaxone. IV heparin. July 10: Having significant right flank pain. On IV fluids IV ceftriaxone. IV heparin discontinued. Dr. lombardo discussed with cardiology and plan is for patient to proceed with cystoscopy with right ureteral stent insertion later today. This was discussed with the patient. July 11: Yesterday patient underwent cystoscopy with right double-J rater stent placement. Cloudy urine for by hematuria. Urine culture was sent off. Today patient's abdominal pain is better. Eating some. Afebrile. Tired. On IV ceftriaxone. IV fluids. Patient did have some chest pressure earlier. July 5: Having some right flank pain. Family the bedside. Eating some. Cultures have been negative. Tired. Per cardiology no cardiac catheterization at this point. Increase activity July 13: Doing better. No fever. No pain. Tolerating diet. He'll follow-up with cardiology and urology as outpatient.. Care was discussed. Will continue Ceftin for 7 more days. She will require outpatient cystoscopy, right rectoscope he with microscopic stone manipulation under general anesthesia within 6-8 weeks. Discussion and discharge planning more than 35 minutes Past medical history to include: Diabetes mellitus type 2, hyperlipidemia, osteoarthritis, hypothyroid, peripheral neuropathy, Parkinson's disease, hypothyroid, irritable bowel syndrome. Social history: . Smoked for 20 years stopped in 1991. No alcohol. Family history: Brain aneurysm. Vascular disorder. Physical examination: VITAL SIGNS: 98.5, 56, 16, 129/73, 100% room air GENERAL: Sitting up in a chair, awake, comfortable EYES: Pupils equal. Conjunctiva normal. HEENT: External appearance of nose and ears normal, oral cavity grossly normal. NECK: JVD not raised; masses not palpable. HEART: First and second heart sounds are normal; no edema. LUNGS: Respiratory rate normal; clear to auscultation. ABDOMEN: Soft, no tenderness, liver spleen not palpable, no masses palpable. PSYCH: Alert and oriented x3; mood and affect normal. MUSCULOSKELETAL:No Clubbing/cyanosis;muscles-grossly intact. OA NEUROLOGICAL: Cranial nerves grossly intact; no facial asymmetry, power and sensation grossly intact. Tremors. INVESTIGATIONS, reviewed in the clinical context: July 13:In 3.5 creatinine 1.03 White count 8.8 hemoglobin 11.7 platelets 214 sodium 142 potassium 3.7 BUN 27 creatinine 2.16 Troponin I 1.8, 2.0, 1.5 Admission labs: White count 20.18:40.9 potassium 3.7 BUN 26 creatinine 1.73 UA positive for leukoesterase WBC EKG tracing personally reviewed by me-no sinus rhythm. Rate 70. Nonspecific ST-T wave changes. Chest x-ray film personally reviewed by me-normal sinus rhythm CT abdomen pelvis without contrast: Marked right-sided hydronephrosis and hydroureter secondary to 6.6 mm right UVJ calculus. 3.5 mm calcification on the right renal calyces. Previous labs: BUN 22 creatinine 1.06 on May 2021 Assessment and plan: -Marked right-sided hydronephrosis and hydroureter secondary to 6.6 mm right UVJ calculus, causing sepsis: IV fluids. IV ceftriaxone. cystoscopy in right ureter double-J stent placed July 10. Cultures negative. Complete 7 more days of Ceftin. -Kidney stones 6.6 mm obstructive at right UVJ junction: Double-J stent placed July 10. Outpatient follow-up with urology. -Sepsis from above: Better IV ceftriaxone, IV fluids. Complete 7 more days of Ceftin -Acute silent PR, non-Q precipitated by sepsis. Underlying cardiac risk factors include diabetes hyperlipidemia. IV heparin-discontinued. Aspirin. Not for cardiac catheterization at present time. Follow outpatient with cardiology -Post infarct angina: Improved Continue current medications -Diabetes mellitus type 2, chronically on insulin Levemir 30 units subcu daily at bedtime. Follow sliding scale with Accu-Cheks. -Hyperlipidemia Lipitor 40 mg daily at bedtime -Acute kidney injury, ATN from sepsis: Improved Initial creatinine 2.16. Down to 1.03 -Primary osteoarthritis Tylenol when necessary -Hypothyroid Levothyroxine sodium 5 g a day -Diabetic peripheral neuropathy -Parkinson disease Sinemet 25/100, 3 tablets 3 times a day -Irritable bowel syndrome -IV heparin monitoring: Discontinued Follow PTT Disposition: Home Plan - Discharge Summary Discharge Rx Participant: No New Discharge Prescriptions: New Cefuroxime Axetil [Ceftin] 500 mg PO BID #14 tab Metoprolol Tartrate [Lopressor] 12.5 mg PO BID #60 tab Acetaminophen Tab [Tylenol] 650 mg PO Q4HR PRN tab PRN Reason: Pain Continue Escitalopram [Lexapro] 20 mg PO DAILY Ezetimibe/Simvastatin [Vytorin 10-20 mg Tablet] 1 tab PO DAILY Vit C/E/Zn/Coppr/Lutein/Zeaxan [Preservision Areds 2 Softgel] 1 cap PO BID Carbidopa-Levodopa 25-100 mg [Sinemet 25-100 mg] 3 tab PO TID@0830,1230,1630 Levothyroxine Sodium [Synthroid] 75 mcg PO DAILY Topiramate [Topamax] 200 mg PO BID Aspirin EC [Ecotrin Low Dose] 81 mg PO DAILY Cholecalciferol [Vitamin D3 (25 Mcg = 1000 Iu)] 50 mcg PO DAILY Ascorbic Acid [Vitamin C] 500 mg PO DAILY Cyanocobalamin (Vitamin B-12) [Vitamin B-12] 2,500 mcg PO DAILY Zinc 50 mg PO DAILY Changed Insulin Detemir [Levemir Flextouch Pen] 30 units SQ HS #0 Discharge Medication List Escitalopram [Lexapro] 20 mg PO DAILY 09/18/15 [History] Ezetimibe/Simvastatin [Vytorin 10-20 mg Tablet] 1 tab PO DAILY 09/18/15 [History] Carbidopa-Levodopa 25-100 mg [Sinemet 25-100 mg] 3 tab PO TID@0830,1230,1630 12/18/18 [History] Vit C/E/Zn/Coppr/Lutein/Zeaxan [Preservision Areds 2 Softgel] 1 cap PO BID 12/18/18 [History] Aspirin EC [Ecotrin Low Dose] 81 mg PO DAILY 06/01/20 [History] Levothyroxine Sodium [Synthroid] 75 mcg PO DAILY 06/01/20 [History] Ascorbic Acid [Vitamin C] 500 mg PO DAILY 05/11/21 [History] Cholecalciferol [Vitamin D3 (25 Mcg = 1000 Iu)] 50 mcg PO DAILY 05/11/21 [History] Cyanocobalamin (Vitamin B-12) [Vitamin B-12] 2,500 mcg PO DAILY 05/11/21 [History] Zinc 50 mg PO DAILY 05/11/21 [History] Topiramate [Topamax] 200 mg PO BID 07/08/21 [History] Acetaminophen Tab [Tylenol] 650 mg PO Q4HR PRN tab 07/13/21 [Rx] Cefuroxime Axetil [Ceftin] 500 mg PO BID #14 tab 07/13/21 [Rx] Insulin Detemir [Levemir Flextouch Pen] 30 units SQ HS #0 07/13/21 [Rx] Metoprolol Tartrate [Lopressor] 12.5 mg PO BID #60 tab 07/13/21 [Rx] Follow up Appointment(s)/Referral(s): Otoniel Hobson MD [STAFF PHYSICIAN] - 07/30/21 3:30 pm Des Rosenberg MD [STAFF PHYSICIAN] - 1 Week (Office will be calling Friday to schedule an appt.) Wilbert Washington MD [Primary Care Provider] - 07/17/21 11:00 am Patient Instructions/Handouts: Ureteral Stent Placement (DC) Discharge Disposition: HOME SELF-CARE
== END 2021-07-13 12:42 | disposition home or self-care (01) | DRG 853 ==
LOC: EC 15:17 → 3SCARD 20:42 → 4SSUR 07-13 01:19
PROVIDERS: ADMIT Hospitalist; ATTEND Hospitalist
PROC: 0T768DZ Dilation of Right Ureter with Intraluminal Device, Via Natural or Artificial Opening Endoscopic (ICD-10-PCS; principal; 2021-07-10 08:35)
DX: A41.9 Sepsis, unspecified organism (principal); I21.4 Non-ST elevation (NSTEMI) myocardial infarction; N17.0 Acute kidney failure with tubular necrosis; I23.7 Postinfarction angina; N13.6 Pyonephrosis; R65.20 Severe sepsis without septic shock; E11.42 Type 2 diabetes mellitus with diabetic polyneuropathy; D64.9 Anemia, unspecified; E03.9 Hypothyroidism, unspecified; G20 Parkinson's disease; Z79.4 Long term (current) use of insulin; E78.5 Hyperlipidemia, unspecified; G25.0 Essential tremor; I25.10 Atherosclerotic heart disease of native coronary artery without angina pectoris; I10 Essential (primary) hypertension; M19.91 Primary osteoarthritis, unspecified site; F32.A Depression, unspecified; M47.9 Spondylosis, unspecified; E87.6 Hypokalemia; M54.9 Dorsalgia, unspecified; R51.9 Headache, unspecified; K58.9 Irritable bowel syndrome, unspecified; I25.5 Ischemic cardiomyopathy; I08.1 Rheumatic disorders of both mitral and tricuspid valves; H35.30 Unspecified macular degeneration; Z79.82 Long term (current) use of aspirin; Z79.890 Hormone replacement therapy; Z79.899 Other long term (current) drug therapy; Z87.11 Personal history of peptic ulcer disease; Z87.891 Personal history of nicotine dependence; Z90.49 Acquired absence of other specified parts of digestive tract; Z90.710 Acquired absence of both cervix and uterus; Z96.1 Presence of intraocular lens; Z98.42 Cataract extraction status, left eye; Z98.41 Cataract extraction status, right eye; Z87.19 Personal history of other diseases of the digestive system; Z87.42 Personal history of other diseases of the female genital tract; Z87.39 Personal history of other diseases of the musculoskeletal system and connective tissue; Z87.442 Personal history of urinary calculi; Z98.890 Other specified postprocedural states; Z88.5 Allergy status to narcotic agent; Z91.041 Radiographic dye allergy status; Z82.49 Family history of ischemic heart disease and other diseases of the circulatory system
CPT/HCPCS: 36415; 71045; 74176; 80048; 80053; 80061; 81001; 82150; 83036; 83605; 83690; 84132; 84145; 84484; 85025; 85049; 85610; 85730; 87040; 87086; 93005; 93306; 96365; 96366; 96368; 96375; 99291

== ENCOUNTER → 2021-08-07 | Day surgery (SDC) | payer MEDICARE, BC ==
[2021-08-02 15:41] VITALS: BMI 23.5
[~2021-08-07] MED LIST changes: -ACETAMINOPHEN TAB 325 MG TAB ONE; -ALPRAZolam 0.25 MG TAB PO PRN; -ALPRAZolam 0.5 MG TAB PO PRN; -ASPIRIN 325 MG TAB PO ONE; -ATORVASTATIN 80 MG TAB PO ONE; -CARBIDOPA-LEVODOPA 25-100 MG 1 EACH TAB PO SCH; -CHOLECALCIFEROL 1,000 UNIT TAB PO SCH; -CYANOCOBALAMIN 5000 MCG PO SCH; +DEXAMETHASONE SOD PHOSPHATE 4 MG/ML 1 ML VIAL IV ONE; -ESCITALOPRAM 20 MG TAB PO SCH; -EZETIMIBE PO SCH; -HEPARIN SODIUM 1,000 UN/ML (10ML VL) ONE; +HYDROmorphone 0.5 MG/0.5 ML SYRINGE IVP PRN; -INSULIN DETEMIR 48 UNIT SQ SCH; -IOPAMIDOL-370 125ML BTL INJ ONE; +LACTATED RINGERS 1,000 ML IV ONE; +LACTATED RINGERS 1,000 ML IV SCH; -LEVOTHYROXINE 88 MCG TAB PO SCH; +LIDOCAINE 1% (10MG/ML) FOR IV START INTRADERMA PRN; -LIDOCAINE 1% INJ 10MG/ML (20 ML MDV) ONE; -LIDOCAINE 1% INJ 10MG/ML (20 ML MDV) SQ ONE; +LIDOCAINE 2% INJ 20 MG/ML (2 ML VIAL) ONE; +METOCLOPRAMIDE 5 MG/ML 2 ML VIAL IVP PRN; +MIDAZOLAM 2 MG/2 ML VIAL ONE; -NITROGLYCERIN SL TABS 0.4 MG TAB SUBLINGUAL PRN; -NON FORMULARY DRUG (Vit C/E/Zn/Coppr/Lutein/Zeaxan [Preservision Areds 2 Softgel] 1 CAP) PO SCH; +ONDANSETRON 4 MG/2 ML VIAL IVP ONE; +PROPOFOL 10 MG/ML 20 ML VIAL IV ONE; -RX INFO: IV CONTRAST WAS GIVEN 1 EACH MISC MISCELLANE PRN; -SIMVASTATIN PO SCH; -SODIUM CHLORIDE 0.9% 1,000 ML IV SCH; -SODIUM CHLORIDE 0.9% 1,000 ML in EMPTY BAG 1 BAG IV ONE; -TOPIRAMATE 100 MG TAB PO SCH; -VERAPAMIL 2.5 MG/ML 2 ML AMP ONE; -VERAPAMIL SYRINGE (5 MG/10 ML) INTRAARTER ONE; -fentaNYL (PF) 50 MCG/ML 2 ML AMP IV ONE
--- NOTE | 2021-08-07 07:15 | P.GSHP ---
History of Present Illness H&P Date: 08/07/21 Chief Complaint: Right renal colic The patient is a 76-year-old white female hospitalized earlier this month with right renal colic due to a 6 mm right distal ureteral calculus. She reported increased urinary frequency at that time, but denied dysuria and hematuria. Which reportedly levels were elevated and she was presumed at that time to have a myocardial infarction. Therefore, she underwent placement of a right ureteral stent on 07/10/2021. The calculus was impacted at the ureteral orifice. - Constitutional Constitutional: Denies chills, Denies fever - Genitourinary (Female) Genitourinary: Reports urinary frequency, Denies dysuria, Denies hematuria Past Medical History Past Medical History: Diabetes Mellitus, Eye Disorder, Hypertension, Musculoskeletal Disorder, Neurologic Disorder, Thyroid Disorder, Vascular Disorder Additional Past Medical History / Comment(s): neuropathy L hand/L foot toes, parkinson's disease, essential termmors, small brain aneurysm, peptic ulcers, beginning of macular degeneration bilaterally, frequent headaches, back pain, hx IBS. told by Dr Hobson 'possible heart attack", hx ulcers, kidney stones, states recen antibiotic for UTI History of Any Multi-Drug Resistant Organisms: None Reported Past Surgical History: Cholecystectomy, Heart Catheterization, Hysterectomy, Orthopedic Surgery Additional Past Surgical History / Comment(s): D&C, multiple surgeries for stabismus bilaterally, bilateral cataract removals/lens implants, colonoscopy. Carpul tunnel left wrist and elbow. 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 Medications and Allergies Home Medications Medication Instructions Recorded Confirmed Type Ezetimibe/Simvastatin [Vytorin 1 tab PO DAILY 09/18/15 08/02/21 History 10-20 mg Tablet] Vit C/E/Zn/Coppr/Lutein/Zeaxan 1 cap PO BID 12/18/18 08/02/21 History [Preservision Areds 2 Softgel] Aspirin EC [Ecotrin Low Dose] 81 mg PO DAILY 06/01/20 08/02/21 History Levothyroxine Sodium [Synthroid] 75 mcg PO DAILY 06/01/20 08/02/21 History Ascorbic Acid [Vitamin C] 500 mg PO DAILY 05/11/21 08/02/21 History Cholecalciferol [Vitamin D3 (25 50 mcg PO DAILY 05/11/21 08/02/21 History Mcg = 1000 Iu)] Cyanocobalamin (Vitamin B-12) 2,500 mcg PO DAILY 05/11/21 08/02/21 History [Vitamin B-12] Zinc 50 mg PO DAILY 05/11/21 08/02/21 History Topiramate [Topamax] 200 mg PO BID 07/08/21 08/02/21 History Insulin Detemir [Levemir Flextouch 30 units SQ BID 08/02/21 08/02/21 History Pen] Metoprolol Tartrate [Lopressor] 12.5 mg PO BID 08/02/21 08/02/21 History Allergies Allergy/AdvReac Type Severity Reaction Status Date / Time codeine Allergy Anaphylaxis Verified 08/02/21 15:22 meperidine HCl [From Demerol] Allergy Anaphylaxis Verified 08/02/21 15:22 Iodinated Contrast Media AdvReac Nausea & Verified 08/02/21 15:22 [Iodinated Contrast- Oral Vomiting and IV Dye] Surgical - Exam - General well developed, well nourished, no distress - Respiratory normal respiratory effort - Abdomen Abdomen: soft, non tender, no guarding, no rigid, no rebound - Genitourinary normal external genitalia - Psychiatric oriented to time, oriented to person, oriented to place, speech is normal, memory intact Assessment and Plan (1) Ureterolithiasis Status: Acute Code(s): N20.1 - CALCULUS OF URETER SNOMED Code(s): 95534964 Plan: Cystoscopy, right ureteral stent removal, right ureteroscopy. The calculus may have passed, but if not she will undergo laser lithotripsy with possible stone basketing. She has been made aware of potential risks, which include anesthesia, infection, and ureteral injury.
--- NOTE | 2021-08-07 12:38 | XR ---
KUB HISTORY: Right ureteral calculus Frontal KUB and [address] scan 07/08/2021 5 to 6 mm distal right ureteral calculus is present superimposed overlying the right double-J uretera l stent. Metallic clinton are present within the pelvis. Probable bone island present in the left darion um. Surgical clips are present in the right upper quadrant. No evident bowel obstruction or pneumoper itoneum. Calcification seen at the lower pole calyx of the right kidney and prior CT not seen definit ively possibly due to overlying bowel gas. IMPRESSION: Distal right ureteral calculus.
[2021-08-07 13:24] LABS: Glucose,Whole Blood 123 mg/dL (75-99)
[2021-08-07 14:23] LABS: Glucose,Whole Blood 141 mg/dL (75-99)
--- NOTE | 2021-08-07 16:11 | P.OP ---
Date of Procedure: 08/07/21 Preoperative Diagnosis: Right ureteral calculus Postoperative Diagnosis: Same Procedure(s) Performed: Cystoscopy, right ureteral stent removal, right ureteroscopy with Holmium laser lithotripsy and stone basketing Anesthesia: VICTOR MANUEL Surgeon: Geovani Mendez Estimated Blood Loss (ml): 0 IV fluids (ml): 400 Pathology: other (Calculus fragments, sent for chemical analysis) Condition: stable Disposition: PACU Indications for Procedure: The patient is a 76-year-old white female hospitalized earlier this month with right renal colic due to a 6 mm right distal ureteral calculus. She reported increased urinary frequency at that time, but denied dysuria and hematuria. Which reportedly levels were elevated and she was presumed at that time to have a myocardial infarction. Therefore, she underwent placement of a right ureteral stent on 07/10/2021. The calculus was impacted at the ureteral orifice. She now comes for stent removal and ureteroscopic removal of the calculus. Operative Findings: Right distal ureteral calculus, fragmented and removed completely. Description of Procedure: The patient was taken to the operating room and placed in the dorsolithotomy position, with legs supported in Kwan stirrups. The external genitalia was prepped and draped sterilely. The 30 lens was used to introduce the 21-Kosovan Moya cystoscopic sheath through the urethra and into the bladder under direct vision. The bladder was examined in its entirety. No tumors were seen. The distal end of the right ureteral stent was grasped with grasping forceps and removed along with the cystoscope. The Moya semirigid ureteroscope was advanced into the bladder, and the calculus was identified impacted at the right ureteral orifice. The 272 micron Holmium laser probe was passed through the ureteroscope, and lithotripsy was cautiously performed performed. As the calculus fragmented, small pieces passed distally into the bladder. A small fragment refluxed proximally in the ureter. Once the calculus had been adequately fragmented, a 1.9-Kosovan nitinol basket was passed through the ureteroscope and the fragment which had refluxed up the ureter was grasped and removed along with the ureteroscope. A final look into the ureter showed no evidence of ureteral trauma, and no residual calculus fragments. The cystoscope was replaced and the bladder, and all calculus fragments were removed from the bladder through the cystoscope. These were saved and sent for chemical analysis. The patient tolerated the procedure well and was taken to the recovery room in stable condition. JOSE HARRISON Report: Procedure Acuity: Elective Stone Size and Location: 6 mm, right distal ureter Ureteral Dilation: No Ureteral Access Sheath Used: No Stone Sent for Analysis: Yes All Stones/Fragments Were Removed with a Basket: Yes Complications: No Preoperative Antibiotics Given: Yes Stent Placed: No Discharge Medications: None
[2021-08-07 16:18] VITALS: RESP 16; TEMP 97.5
[2021-08-07 16:36] LABS: Glucose,Whole Blood 173 mg/dL (75-99)
[2021-08-07 17:38] VITALS: BP 111/65; PULSE 65
== END | disposition home or self-care (01) ==
LOC: OR 12:06
PROVIDERS: ATTEND Urology
DX: N20.1 Calculus of ureter (principal); I10 Essential (primary) hypertension; E11.40 Type 2 diabetes mellitus with diabetic neuropathy, unspecified; I25.10 Atherosclerotic heart disease of native coronary artery without angina pectoris; E78.2 Mixed hyperlipidemia; E07.9 Disorder of thyroid, unspecified; G20 Parkinson's disease; G25.0 Essential tremor; H35.30 Unspecified macular degeneration; Z87.11 Personal history of peptic ulcer disease; I67.1 Cerebral aneurysm, nonruptured; Z87.442 Personal history of urinary calculi; Z87.19 Personal history of other diseases of the digestive system; Z87.891 Personal history of nicotine dependence; Z98.42 Cataract extraction status, left eye; Z98.41 Cataract extraction status, right eye; Z96.1 Presence of intraocular lens; Z90.49 Acquired absence of other specified parts of digestive tract; Z90.710 Acquired absence of both cervix and uterus; Z98.890 Other specified postprocedural states; Z82.49 Family history of ischemic heart disease and other diseases of the circulatory system; Z79.82 Long term (current) use of aspirin; Z79.890 Hormone replacement therapy; Z79.4 Long term (current) use of insulin; Z79.899 Other long term (current) drug therapy; Z88.5 Allergy status to narcotic agent; Z91.048 Other nonmedicinal substance allergy status; Z91.041 Radiographic dye allergy status
CPT/HCPCS: 84132; 82365; 74018; 52353; J2250; J1100; J0690; J2405; J3010; J2704; J1170; J2001

== ENCOUNTER → 2021-08-15 | Outpatient (CLI) | payer MEDICARE, BC ==
[2021-08-15 15:31] LABS: ALT 13 U/L (8-44); AST 14 U/L (13-35); African American GFR (CKD) 62.8 (60.0-200.0); Albumin 4.3 g/dL (3.8-4.9); Albumin/Globulin Ratio 1.67 (1.60-3.17); Alkaline Phosphatase 109 U/L (41-126); BUN/Creat Ratio 19.31 Ratio (12.00-20.00); Blood Urea Nitrogen 19.7 mg/dL (9.0-27.0); Calcium 9.1 mg/dL (8.7-10.3); Carbon Dioxide 22.3 mmol/L (20.0-27.5); Chloride 112 mmol/L (96-109); Chol/HDL Ratio 4.44 Ratio; Globulin 2.6 g/dL (1.6-3.3); Glucose 157 mg/dL (70-110); LDL Cholesterol,Calculated 108.7 mg/dL (0.0-131.0); Non-African American GFR(CKD) 54.1 (60.0-200.0); Sodium 145 mmol/L (135-145); Total Protein 6.9 g/dL (6.2-8.2)
== END | disposition home or self-care (01) ==
LOC: LABWHC1 07:57
PROVIDERS: ATTEND Internal Medicine Endocrinology, Diabetes & Metabolism
DX: E11.65 Type 2 diabetes mellitus with hyperglycemia (principal)
CPT/HCPCS: 36415; 80053; 80061; 82043; 82570; 83036; 84443

== ENCOUNTER → 2021-09-11 | Outpatient (CLI) | payer MEDICARE, BC ==
--- NOTE | 2021-09-11 17:30 | US ---
EXAMINATION TYPE: US kidneys/renal and bladder DATE OF EXAM: 09/11/2021 COMPARISON: 10/24/[address] 07/08/2021 CLINICAL HISTORY: 76-year-old female N20.1 CALCULUS OF URETER. RT FLANK PAIN, HYDRONEPHROSIS, CALCULU S OF URETER TECHNIQUE: Multiple sonographic images of the kidneys and bladder are obtained. FINDINGS: EXAM MEASUREMENTS: Right Kidney: 10.8 x 5.1 x 6.0cm Left Kidney: 10.7 x 5.9 x 5.1cm Right Kidney: Dilatation of the renal pelvis and proximal ureter measuring 1.1 cm. Benign cortical me asuring 1.3 x 1.2 x 1.2 cm at the midpole. Left Kidney: No hydronephrosis seen. There is a cortical cyst with thin internal septation at the upp er pole measuring 1.6 x 1.5 x 1.7 cm Bladder: ANECHOIC, WNL SEEN Bilateral Jets seen: Yes There is no evidence for hydronephrosis at this point in time. No nephrolithiasis is seen. No leonard s are identified. The urinary bladder is anechoic. Bilateral ureteral jets are seen. IMPRESSION: The right renal pelvis is dilated as is the visualized proximal right ureter. Unable to exclude recur rent or residual right-sided hydronephrosis compared to 07/08/2021.
== END | disposition home or self-care (01) ==
LOC: RADUSWWP 14:16
PROVIDERS: ATTEND Urology
DX: N13.30 Unspecified hydronephrosis (principal)
CPT/HCPCS: 76770

== ENCOUNTER → 2021-10-05 | Outpatient (CLI) | payer MEDICARE, BC ==
[2021-10-05 14:30] LABS: ALT 13 U/L (8-44); AST 16 U/L (13-35); African American GFR (CKD) 57.3 (60.0-200.0); Albumin 4.1 g/dL (3.8-4.9); Albumin/Globulin Ratio 1.28 (1.60-3.17); Alkaline Phosphatase 120 U/L (41-126); BUN/Creat Ratio 19.55 Ratio (12.00-20.00); Blood Urea Nitrogen 21.5 mg/dL (9.0-27.0); Carbon Dioxide 20.2 mmol/L (20.0-27.5); Chloride 109 mmol/L (96-109); Chol/HDL Ratio 4.58 Ratio; Globulin 3.2 g/dL (1.6-3.3); Glucose 336 mg/dL (70-110); LDL Cholesterol,Calculated 84.7 mg/dL (0.0-131.0); Non-African American GFR(CKD) 49.4 (60.0-200.0); Potassium 4.2 mmol/L (3.5-5.5); Sodium 142 mmol/L (135-145); Total Bilirubin <0.15 mg/dL (0.30-1.20); Total Protein 7.3 g/dL (6.2-8.2)
== END | disposition home or self-care (01) ==
LOC: LABWHC1 09:33
PROVIDERS: ATTEND Internal Medicine Interventional Cardiology
DX: E78.2 Mixed hyperlipidemia (principal)
CPT/HCPCS: 36415; 80053; 80061

== ENCOUNTER → 2021-11-27 | Outpatient (CLI) | payer MEDICARE, BC ==
--- NOTE | 2021-11-27 09:13 | CT ---
EXAMINATION TYPE: CT abdomen pelvis wo con CT DLP: 755 mGycm, Automated exposure control for dose reduction was used. DATE OF EXAM: 11/27/2021 8:58 AM COMPARISON: CT abdomen pelvis most recent from 07/08/2021, renal ultrasound 10/29/2021 . CLINICAL INDICATION:Female, 76 years old with history of N13.30 HYDRONEPHROSIS; TECHNIQUE: Standard CT of the abdomen and pelvis without IV or oral contrast. Lack of IV or oral co ntrast limits evaluation of solid and hollow organ viscera. Coronal and sagittal reformats were perfo rmed. FINDINGS: LOWER CHEST: Posterior dependent subsegmental atelectasis is noted. ABDOMEN LIVER: Region of curvilinear low attenuation within the left lateral segment. GALLBLADDER AND BILE DUCTS: The gallbladder is surgically absent. No biliary ductal dilatation. PANCREAS: Unremarkable noncontrast appearance. SPLEEN: Unremarkable noncontrast appearance. ADRENAL GLANDS: Unremarkable noncontrast appearance. KIDNEYS AND URETERS: Resolution of previously limited right hydronephrosis. No hydronephrosis involvi ng the left kidney. No ureteral calculi. Nonobstructive right renal calculi with largest in the infer ior pole measuring 5 mm. Additional calculus within the right mid pole measures 4 mm in additional fo cus within the superior pole measures up to 1.5 mm. Subcentimeter hypodense foci within both kidneys are too small accurately characterize. PELVIS BLADDER: Incompletely distended but grossly unremarkable. REPRODUCTIVE: The uterus is surgically absent. Possible tubal ligation clips within the pelvis redemo nstrated. ABDOMEN & PELVIS STOMACH AND BOWEL: Small hiatal hernia, duodenum is unremarkable. Scattered colonic diverticulosis wi thout evidence for acute diverticulitis. The appendix is within normal limits. No evidence of bowel o bstruction. PERITONEUM: No evidence of pneumoperitoneum or free fluid. VASCULATURE: Moderate atherosclerotic calcifications are present throughout the abdominal aorta and i ts branches. No evidence of aortic aneurysm. MUSCULOSKELETAL: No acute osseous abnormalities. No aggressive osseous lesion. Degenerative changes o f the spine most pronounced at L5-S1 with disc space, vacuum disc disease, endplate sclerosis, and an terior osteophytosis. LYMPH NODES: No gross evidence for lymphadenopathy. SOFT TISSUE/ABDOMINAL WALL: Periumbilical fat stranding and skin thickening redemonstrated. No organi zed fluid collection. IMPRESSION: 1. Resolution of right-sided hydronephrosis. Nonobstructive right renal calculi. 2. New region of curvilinear low attenuation within the left lateral hepatic segment which may repres ent fatty infiltration versus intrahepatic biliary duct dilatation. Further evaluation with ultrasoun d is recommended. 3. Colon diverticulosis without evidence for acute diverticulitis. 4. Redemonstration of periumbilical fat stranding and skin thickening. Correlate for cellulitis.
== END | disposition home or self-care (01) ==
LOC: RADCTMAIN 08:38
PROVIDERS: ATTEND Urology
DX: N13.30 Unspecified hydronephrosis (principal); K57.30 Diverticulosis of large intestine without perforation or abscess without bleeding
CPT/HCPCS: 74176

== ENCOUNTER → 2021-12-12 | Outpatient (CLI) | payer MEDICARE, BC ==
[2021-12-12 15:02] LABS: ALT <5 U/L (8-44); AST 14 U/L (13-35); African American GFR (CKD) 55.4 (60.0-200.0); Albumin 4.2 g/dL (3.8-4.9); Albumin/Globulin Ratio 1.31 (1.60-3.17); Alkaline Phosphatase 125 U/L (41-126); BUN/Creat Ratio 18.05 Ratio (12.00-20.00); Blood Urea Nitrogen 20.4 mg/dL (9.0-27.0); Carbon Dioxide 24.4 mmol/L (20.0-27.5); Chloride 107 mmol/L (96-109); Chol/HDL Ratio 4.89 Ratio; Globulin 3.2 g/dL (1.6-3.3); Glucose 176 mg/dL (70-110); LDL Cholesterol,Calculated 87.9 mg/dL (0.0-131.0); Non-African American GFR(CKD) 47.8 (60.0-200.0); Potassium 3.8 mmol/L (3.5-5.5); Sodium 141 mmol/L (135-145); Total Protein 7.4 g/dL (6.2-8.2)
== END | disposition home or self-care (01) ==
LOC: LABWHC1 09:02
PROVIDERS: ATTEND Internal Medicine Endocrinology, Diabetes & Metabolism
DX: E11.65 Type 2 diabetes mellitus with hyperglycemia (principal)
CPT/HCPCS: 36415; 80053; 80061; 82043; 82570; 83036; 84443

== ENCOUNTER → 2022-03-18 | Outpatient (CLI) | payer MEDICARE, BC ==
[2022-03-18 15:13] LABS: ALT 22 U/L (8-44); AST 21 U/L (13-35); African American GFR (CKD) 83.6 (60.0-200.0); Alkaline Phosphatase 112 U/L (41-126); Blood Urea Nitrogen 8.8 mg/dL (9.0-27.0); Carbon Dioxide 24.2 mmol/L (20.0-27.5); Chloride 106 mmol/L (96-109); Globulin 2.5 g/dL (1.6-3.3); Glucose 142 mg/dL (70-110); LDL Cholesterol,Calculated 92.7 mg/dL (0.0-131.0); Non-African American GFR(CKD) 72.1 (60.0-200.0); Potassium 4.3 mmol/L (3.5-5.5); Sodium 144 mmol/L (135-145); Total Protein 6.5 g/dL (6.2-8.2)
[2022-03-18 22:43] LABS: Microalbumin Creatinine Ratio <30 mg/g Creat (0-30); Urine Creatinine 86.9 mg/dL (28.0-217.0)
== END | disposition home or self-care (01) ==
LOC: LABWHC1 10:12
PROVIDERS: ATTEND Internal Medicine Endocrinology, Diabetes & Metabolism
DX: E11.65 Type 2 diabetes mellitus with hyperglycemia (principal)
CPT/HCPCS: 36415; 80053; 80061; 82043; 82570; 83036; 84443

== ENCOUNTER → 2022-10-09 | Outpatient (CLI) | payer MEDICARE, BC ==
--- NOTE | 2022-10-09 09:44 | XR ---
EXAMINATION TYPE: XR Hip Complete LT DATE OF EXAM: 10/09/2022 9:24 AM INDICATION: Patient age:Female; 77 years old; Reason for study: M25.552 Left hip pain; PHH. COMPARISON: Left hip radiograph 07/31/2016, CT abdomen pelvis 11/27/2021 TECHNIQUE: The left hip was examined in the frontal and lateral projections . FINDINGS: No evidence of any acute osseous pathology, joint dislocation, or soft tissue swelling. Mil d concentric narrowing of the joint space. Sclerosis of the iliac bone is stable and likely represent s a benign bone island. Tubal ligation clips identified in the pelvis. Degenerative changes of the le ft SI joint. IMPRESSION: 1. No acute osseous pathology. 2. Mild osteoarthritic changes of the left hip. 3. Degenerative changes of the left SI joint.
== END | disposition home or self-care (01) ==
LOC: RADXRMAIN 09:09
PROVIDERS: ATTEND Family Medicine
DX: M16.12 Unilateral primary osteoarthritis, left hip (principal)
CPT/HCPCS: 73502

== ENCOUNTER → 2022-11-26 | Outpatient (CLI) | payer MEDICARE, BC ==
--- NOTE | 2022-11-27 19:22 | BD ---
EXAMINATION TYPE: Axial Bone Density DATE OF EXAM: 11/26/2022 CLINICAL HISTORY: 77 years old Female. ICD-10 CODE: Z78.0 ASYMPTOMATIC MENOPAUSAL STATE Height: 64.25" Weight: 156lbs FRAX RISK QUESTIONS: Alcohol (3 or more units per day): No Family History (Parent hip fracture): No Glucocorticoids (More than 3mos): No (Ex: prednisone, prednisolone, methylprednisolone, dexamethasone, and hydrocortisone). History of Fracture in Adulthood: Yes, toe Secondary Osteoporosis: 1. Type 1 Diabetes: No 2. Hyperthyroidism: No 3. Menopause before 45: Yes 4. Malnutrition: No 5. Chronic liver disease: No Rheumatoid Arthritis: No Current Tobacco Use: No RISK FACTORS HISTORY OF: Hip Fracture (Right/Left): No Spine Fracture: No History of Wrist Fracture: No Surgery to Spine/Hip(right/left)/Wrist (right/left): No Family History of Osteoporosis: Unknown Active: Yes Diet low in dairy products/other sources of calcium: No Postmenopausal woman: Yes Lost more than 2 inches in height since high school: No Frequent falls: No Poor Health: NO Hyperparathyroidism: No Adrenal Insufficiency: No MEDICATIONS: Prednisone or other steroids: NO Thyroid Medications: No Osteoporosis Medications: No Additional Medications: Blood pressure meds, Cholesterol meds, Lexapro, prescription meds for tremors /Parkinson's Disease, Primadone, Cinnamet (Parkinson's Meds), Levothyroxine, Aide supplements Additional History: Pt has Parkinson's Disease/Tremors EXAM MEASUREMENTS: Bone mineral densitometry was performed using the DIY System. Bone mineral density as measured about the Lumbar spine is: ----- L1-L4(G/cm2): 0.980 T Score Values are as follows: ----- L1: -2.3 ----- L2: -2.2 ----- L3: -1.5 ----- L4: -1.2 ----- L1-L4: -1.7 Z Score Values are as follows: ----- L1: -0.7 ----- L2: -0.6 ----- L3: 0.1 ----- L4: 0.4 ----- L1-L4: -0.1 Bone mineral density has: increased 3.8% since study of: 10/05/2018 Bone mineral density about the R hip (g/cm2): 0.744 Bone mineral density about the L hip (g/cm2): 0.743 T Score values are as follows: -----R Neck: -2.4 -----L Neck: -2.1 -----R Total: -2.1 -----L Total: -2.1 Z Score values are as follows: -----R Neck: -0.5 -----L Neck: -0.2 -----R Total: -2.1 -----L Total: -2.1 Bone mineral density has: decreased -0.8% since study of: 10/05/2018 FRAX%s: The graph provided illustrates a 23.9% chance for a major osteoporotic fx and a 7.0% chance f or the hips probability for fx in 10 years time. IMPRESSION: Osteopenia (T Score between -2.5 and -1). There is slightly increased risk of fracture and the patient may be considered for treatment. Re-Screen 2-5 years. NOTE: T-SCORE=SD OF THE YOUNG ADULT MEAN.
== END | disposition home or self-care (01) ==
LOC: RADBDWWP 08:00
PROVIDERS: ATTEND Family Medicine
DX: M85.89 Other specified disorders of bone density and structure, multiple sites (principal); Z78.0 Asymptomatic menopausal state
CPT/HCPCS: 77080

== ENCOUNTER → 2022-12-26 | Outpatient (CLI) | payer MEDICARE, BC ==
[2022-12-26 18:38] LABS: ALT 7 U/L (8-49); AST 16 U/L (13-35); Albumin 4.3 d/dL (3.8-4.9); Albumin/Globulin Ratio 1.43 Ratio (1.60-3.17); Alkaline Phosphatase 121 U/L (41-126); Blood Urea Nitrogen 18.1 mg/dL (9.0-27.0); Calcium 9.3 mg/dL (8.7-10.3); Carbon Dioxide 25.9 mmol/L (21.6-31.8); Chloride 104 mmol/L (96-109); Chol/HDL Ratio 4.88 Ratio; Glucose 164 mg/dL (70-110); LDL Cholesterol,Calculated 85.6 mg/dL (0.0-131.0); Potassium 5.1 mmol/L (3.5-5.5); Sodium 142 mmol/L (135-145); Total Bilirubin 0.2 mg/dL (0.3-1.2); Total Protein 7.3 d/dL (6.2-8.2)
[2022-12-26 19:53] LABS: Microalbumin Creatinine Ratio <12 mg/g Cr (0-30)
== END | disposition home or self-care (01) ==
LOC: LABWHC1 09:06
PROVIDERS: ATTEND Internal Medicine Endocrinology, Diabetes & Metabolism
DX: E11.65 Type 2 diabetes mellitus with hyperglycemia (principal); E03.8 Other specified hypothyroidism
CPT/HCPCS: 36415; 80053; 80061; 82043; 82570; 83036; 84443

== ENCOUNTER → 2023-05-28 | Outpatient (CLI) | payer MEDICARE, BC ==
--- NOTE | 2023-05-29 08:23 | MM ---
Reason for Exam: Screening (asymptomatic). Last mammogram was performed 1 year(s) and 1 month(s) ago. Patient History: Menarche at age 15. First Full-Term at age 23. Left ovary removed at age 51. Right ovary removed at age 51. Hysterectomy at age 51. Postmenopausal. Patient used Estrogen for 6 years. Core Biopsy on the Right side. Core Biopsy on the Left side. 1989, Benign Excisional Biopsy on the left side. 01/09/1998, Benign Core Biopsy on the right side. Risk Values: Tahmina 5 year model risk: 2.4%. NCI Lifetime model risk: 4.8%. Prior Study Comparison: 12/21/2020 Bilateral Screening Mammogram, [facility]. 05/07/2022 Bilateral MG 3D screening mammo w/cad, [facility]. 05/10/2022 Right MG 3D work up w/cad RT, [facility]. Tissue Density: There are scattered areas of fibroglandular density. Findings: Analyzed By CAD. Right breast: There is no suspicious group of microcalcifications or new suspicious mass. Benign-appearing calcifications right breast. Left breast: There is no suspicious group of microcalcifications or new suspicious mass. Benign-appearing calcifications left breast. There is no suspicious group of microcalcifications or new suspicious mass. Overall Assessment: Benign, BI-RAD 2 Management: Screening Mammogram of both breasts in [address] [facility] will attempt to contact patient to return for supplemental views and ultrasound if indicated. Patient should continue monthly self-breast exams. A clinical breast exam by your physician is recommended on an annual basis. This exam should not preclude additional follow-up of suspicious palpable abnormalities. Note on Tahmina scores and lifetime risk: 1. A Tahmina score greater than 3% is considered moderate risk. If this is the case, consider specialist referral to assess eligibility for a risk reducing agent. 2. If overall lifetime risk for the development of breast cancer is 20% or higher, the patient may qualify for future screening with alternating mammogram and breast MRI. Electronically signed and approved by: Bakari Alejo DO
== END | disposition home or self-care (01) ==
LOC: RADMAMWWP 10:41
PROVIDERS: ATTEND Family Medicine
DX: Z12.31 Encounter for screening mammogram for malignant neoplasm of breast (principal); Z78.0 Asymptomatic menopausal state
CPT/HCPCS: 77063; 77067

== ENCOUNTER → 2023-07-07 | Outpatient (CLI) | payer MEDICARE, BC ==
[2023-07-07 15:18] LABS: ALT 11 U/L (8-49); AST 18 U/L (13-35); Albumin 4.1 g/dL (3.8-4.9); Albumin/Globulin Ratio 1.24 Ratio (1.60-3.17); Alkaline Phosphatase 114 U/L (41-126); Blood Urea Nitrogen 15.5 mg/dL (9.0-27.0); Carbon Dioxide 28.3 mmol/L (21.6-31.8); Chloride 107 mmol/L (96-109); Chol/HDL Ratio 5.02 Ratio; Globulin 3.3 g/dL (1.6-3.3); Glucose 84 mg/dL (70-110); LDL Cholesterol,Calculated 71.3 mg/dL (0.0-131.0); Potassium 4.4 mmol/L (3.5-5.5); Sodium 144 mmol/L (135-145); Total Bilirubin 0.2 mg/dL (0.3-1.2); Total Protein 7.4 g/dL (6.2-8.2)
[2023-07-07 22:22] LABS: Microalbumin Creatinine Ratio <6 mg/g Cr (0-30)
== END | disposition home or self-care (01) ==
LOC: LABWHC1 09:20
PROVIDERS: ATTEND Internal Medicine Endocrinology, Diabetes & Metabolism
DX: E11.65 Type 2 diabetes mellitus with hyperglycemia (principal); E03.8 Other specified hypothyroidism
CPT/HCPCS: 36415; 80053; 80061; 82043; 82570; 83036; 84443

== ENCOUNTER → 2023-10-06 | Outpatient (CLI) | payer MEDICARE, BC | END | disposition home or self-care (01) | LOC: LABWHC1 15:45 | PROVIDERS: ATTEND Ophthalmology | DX: H46.03 Optic papillitis, bilateral (principal); H47.021 Hemorrhage in optic nerve sheath, right eye; G44.219 Episodic tension-type headache, not intractable | CPT/HCPCS: 36415; 85652; 86140 ==

== ENCOUNTER → 2023-11-05 | Outpatient (CLI) | payer MEDICARE, BC | END | disposition home or self-care (01) | LOC: LABWHC1 10:30 | PROVIDERS: ATTEND Ophthalmology | DX: H47.11 Papilledema associated with increased intracranial pressure | CPT/HCPCS: 36415; 83090; 86255; 86780 ==

== ENCOUNTER → 2024-02-25 | Outpatient (CLI) | payer MEDICARE, BC | END | disposition home or self-care (01) | LOC: LABWHC1 12:15 | PROVIDERS: ATTEND Psychiatry & Neurology Neurology | DX: Z79.899 Other long term (current) drug therapy (principal) | CPT/HCPCS: 36415; 82607; 83516 ==

== ENCOUNTER → 2024-04-01 | Outpatient (CLI) | payer MEDICARE, BC ==
[2024-04-01 16:06] LABS: T4, Free (Free Thyroxine) 1.19 ng/dL (0.80-1.80)
== END | disposition home or self-care (01) ==
LOC: LABWHC1 09:30
PROVIDERS: ATTEND Internal Medicine
DX: E11.65 Type 2 diabetes mellitus with hyperglycemia (principal)
CPT/HCPCS: 36415; 83036; 84439; 84443

== ENCOUNTER → 2024-05-20 | Outpatient (CLI) | payer MEDICARE, BC ==
[2024-05-20 15:14] LABS: ALT 8 U/L (8-49); AST 14 U/L (13-35); Chol/HDL Ratio 5.06 Ratio
== END | disposition home or self-care (01) ==
LOC: LABWHC1 07:55
PROVIDERS: ATTEND Internal Medicine Interventional Cardiology
DX: E78.2 Mixed hyperlipidemia (principal)
CPT/HCPCS: 36415; 80061; 84450; 84460

== ENCOUNTER → 2024-06-03 | Outpatient (CLI) | payer MEDICARE, BC ==
--- NOTE | 2024-06-03 11:51 | MM ---
Reason for Exam: Screening (asymptomatic). Last screening mammogram was performed 12 month(s) ago. Patient History: Menarche at age 15. First Full-Term at age 23. Left ovary removed at age 51. Right ovary removed at age 51. Hysterectomy at age 51. Postmenopausal. Patient used Estrogen for 6 years. Core Biopsy on the Right side. Core Biopsy on the Left side. 1989, Benign Excisional Biopsy on the left side. 01/09/1998, Benign Core Biopsy on the right side. Risk Values: Tahmina 5 year model risk: 2.3%. NCI Lifetime model risk: 4.5%. Prior Study Comparison: 05/07/2022 Bilateral MG 3D screening mammo w/cad, [facility]. 05/10/2022 Right MG 3D work up w/cad RT, [facility]. 05/28/2023 Bilateral MG 3D screening mammo w/cad, [facility]. Tissue Density: The breasts are heterogeneously dense, which may obscure small masses. Findings: Analyzed By CAD. There is no suspicious group of microcalcifications or new suspicious mass in either breast. A benign-appearing calcified stable. Old lung lower margin of the left breast. Benign-appearing lymph nodes. Overall Assessment: Benign, BI-RAD 2 Management: Screening Mammogram of both breasts in 1 year. . Patient should continue monthly self-breast exams. A clinical breast exam by your physician is recommended on an annual basis. This exam should not preclude additional follow-up of suspicious palpable abnormalities. Note on Tahmina scores and lifetime risk: 1. A Tahmina score greater than 3% is considered moderate risk. If this is the case, consider specialist referral to assess eligibility for a risk reducing agent. 2. If overall lifetime risk for the development of breast cancer is 20% or higher, the patient may qualify for future screening with alternating mammogram and breast MRI. [facility], , 06/03/2024 11:47 AM. Electronically signed and approved by: Efren Morillo M.D. Radiologis
== END | disposition home or self-care (01) ==
LOC: RADMAMWWP 11:30
PROVIDERS: ATTEND Student in an Organized Health Care Education/Training Program
DX: Z12.31 Encounter for screening mammogram for malignant neoplasm of breast (principal); R92.333 Mammographic heterogeneous density, bilateral breasts; Z78.0 Asymptomatic menopausal state
CPT/HCPCS: 77063; 77067

== ENCOUNTER → 2024-09-13 | Outpatient (CLI) | payer MEDICARE, BC ==
[2024-09-13 15:36] LABS: ALT 11 U/L (8-49); AST 15 U/L (13-35); Albumin 4.3 g/dL (3.8-4.9); Albumin/Globulin Ratio 1.59 Ratio (1.60-3.17); Alkaline Phosphatase 127 U/L (41-126); Anion Gap 13.00 mmol/L (4.00-12.00); BUN/Creat Ratio 16.89 Ratio (12.00-20.00); Blood Urea Nitrogen 15.2 mg/dL (9.0-27.0); Calcium 9.1 mg/dL (8.7-10.3); Carbon Dioxide 24.0 mmol/L (21.6-31.8); Chloride 106 mmol/L (96-109); Cholesterol 118.00 mg/dL (0.00-200.00); Globulin 2.7 g/dL (1.6-3.3); Glucose 188 mg/dL (70-110); HDL Cholesterol 31.50 mg/dL (40.00-60.00); LDL Cholesterol,Calculated 44.9 mg/dL (0.0-131.0); Potassium 4.1 mmol/L (3.5-5.5); Sodium 143 mmol/L (135-145); T4, Free (Free Thyroxine) 1.10 ng/dL (0.80-1.80); Total Protein 7.0 g/dL (6.2-8.2); Triglycerides 208.00 mg/dL (0.00-149.00); VLDL Calculation 41.60 mg/dL (5.00-40.00)
== END | disposition home or self-care (01) ==
LOC: LABWHC1 09:14
PROVIDERS: ATTEND Internal Medicine
DX: E03.9 Hypothyroidism, unspecified (principal); E11.65 Type 2 diabetes mellitus with hyperglycemia; E78.5 Hyperlipidemia, unspecified; Z79.4 Long term (current) use of insulin
CPT/HCPCS: 36415; 80053; 80061; 82043; 82570; 83036; 84439; 84443

== ENCOUNTER → 2024-10-07 | Outpatient (CLI) | payer MEDICARE, BC ==
--- NOTE | 2024-10-07 15:19 | US ---
EXAMINATION TYPE: US kidneys/renal and bladder DATE OF EXAM: 10/07/2024 COMPARISON: CT, US 2021 CLINICAL INDICATION: Female, 79 years old with history of N39.9 DISORDER OF URINARY SYSTEM, UNSPECIFI ED; UTI TECHNIQUE: Grayscale imaging of the bilateral kidneys and urinary bladder: FINDINGS: EXAM MEASUREMENTS: Right Kidney: 11.2 x 6.0 x 4.4 cm Left Kidney: 10.3 x 4.7 x 4.8 cm Right Kidney: Hypoechoic area seen lower pole/ laterally: 1.6 x 1.7 x 1.2 cm. *Hyperechoic focus seen lower pole: 0.3 x 0.3 x 0.2 cm. *Multiple anechoic areas seen, largest is at the upper pole: 1.8 x 1.7 x 1.2 cm. Left Kidney: Anechoic area seen upper pole: 1.7 x 1.7 x 1.6 cm. *Hypoechoic area seen upper pole: 2.2 x 1.9 x 1.8 cm. *Hyperechoic focus seen lower pole: 0.3 x 0.3 x 0.3 cm. Bladder: wnl Bilateral Jets seen: Yes IMPRESSION: Bilateral nonspecific renal lesions. Consider CT correlation. [facility], , 10/07/2024 3:17 PM
== END | disposition home or self-care (01) ==
LOC: RADUSWWP 14:31
PROVIDERS: ATTEND Urology
DX: N39.9 Disorder of urinary system, unspecified (principal); N28.89 Other specified disorders of kidney and ureter
CPT/HCPCS: 76770